=== PATIENT | male | born 1945 ===

== ENCOUNTER 2023-04-23 10:59 | Inpatient (IN) | payer MEDICAID, SELFPAY ==
[2023-04-23] VITALS (28 sets, daily range): BP systolic 62–107; BP diastolic 33–69; PULSE 67–110; RESP 14–26; TEMP 35.3–38.4; O2SAT 79–99; BMI 27.1; BMI 27.5
--- NOTE | ~2023-04-23 | CT_ITS ---
EXAMINATION: CT ABDOMEN AND PELVIS WITHOUT CONTRAST CLINICAL INFORMATION: Abdominal pain. Dysuria. Fever. End-stage renal disease. COMPARISON: None available. TECHNIQUE: Multidetector volumetric imaging was performed from the superior aspect of the liver through the pubic symphysis. Sagittal and coronal reformatted images were obtained on the technologist's workstation. This CT examination was performed using dose optimization techniques as appropriate, variously including the following: *Automated exposure control *Adjustment of mA and/or kV according to patient size (this includes techniques or standardized protocols for targeted exams where dose is matched to indication/reason for exam; i.e. extremities or head) *Use of iterative reconstruction technique DLP: 667 mGy-cm FINDINGS: LUNG BASES: Bilateral small pleural effusions and atelectasis. Heart is enlarged. Right gynecomastia. LIVER, GALLBLADDER, AND BILIARY TREE: The noncontrast liver is normal in size and contour. No biliary ductal dilatation is present. The gallbladder is nonvisualized. PANCREAS: Peripancreatic stranding. Possible edema of the head of the pancreas. No ductal dilatation. SPLEEN: Not enlarged. ADRENAL GLANDS: Nodular thickening of the left adrenal gland. KIDNEYS AND URETERS: Atrophic [place] kidneys. No hydronephrosis. Nonspecific perinephric stranding. Lower pole left renal cyst. No further imaging follow-up is needed. No renal calculus. BLADDER: 2 mm depending calculus. No bladder wall thickening. GASTROINTESTINAL TRACT: Wall thickening of the rectosigmoid colon. The sigmoid colon is redundant. Presacral stranding and edema. Moderate retained stool in the colon. No small bowel obstruction. ABDOMINAL WALL: Bilateral fat-containing inguinal hernias. LYMPH NODES: Mesenteric stranding and edema. Left para-aortic lymph node measures 1.0 x 1.6 cm. VASCULAR: Marked atherosclerotic changes of the abdominal aorta and major branch vessels. No abdominal aortic aneurysm. PELVIC VISCERA: Mild enlargement of the prostate gland. OSSEOUS STRUCTURES: No destructive bone lesions. CT/CT abdomen pelvis wo IV con IMPRESSION: Mesenteric stranding and edema. Peripancreatic stranding with possible edema of the pancreatic head. Enlarged left periaortic lymph node measures 1.0 x 1.6 cm. This may represent acute pancreatitis. Advise correlation with pancreatic enzymes. Wall thickening of the rectosigmoid colon with presacral stranding and edema. This may represent proctocolitis. Advise clinical correlation. 2 mm depending calculus in the urinary bladder is may represent a recently passed stone. Small bilateral pleural effusions.
--- NOTE | ~2023-04-23 | IR_ITS ---
PROCEDURE: IR INSERTION OF TUNNEL CATHETER CLINICAL INFORMATION: Chronic renal insufficiency COMPARISON: Previous catheter placement on 04/24/2023 TECHNIQUE: All elements of maximal sterile barrier technique followed including use of cap, mask, sterile gown, sterile gloves, a sterile full body drape and hand hygiene. Also followed skin preparation with 2% chlorhexidine for cutaneous antisepsis, and sterile ultrasound preparation with sterile gel and probe cover when applicable. FINDINGS: The previously placed temporary line was removed and pressure maintained for 5 minutes. Under ultrasound guidance a micropuncture needle was placed into the right internal jugular vein. A 15 [place] peel-away sheath was placed. A 23 cm in length 14.5 [place] dual-lumen dialysis catheter was tunneled beneath the skin surface and subsequently through the peel-away sheath into the mid to superior aspect of the right atrium. Both ports were flushed and heparinized saline instilled. IR/IR cvc insert central tunnel IMPRESSION: Removal of the previously placed temporary line. Placement 14.5 [place] 23 cm in length dual-lumen tunneled dialysis catheter
--- NOTE | ~2023-04-23 | IR_ITS ---
PROCEDURE: IR INSERTION OF TUNNEL CATHETER CLINICAL INFORMATION: Chronic renal insufficiency COMPARISON: Previous catheter placement on 04/24/2023 TECHNIQUE: All elements of maximal sterile barrier technique followed including use of cap, mask, sterile gown, sterile gloves, a sterile full body drape and hand hygiene. Also followed skin preparation with 2% chlorhexidine for cutaneous antisepsis, and sterile ultrasound preparation with sterile gel and probe cover when applicable. FINDINGS: The previously placed temporary line was removed and pressure maintained for 5 minutes. Under ultrasound guidance a micropuncture needle was placed into the right internal jugular vein. A 15 [place] peel-away sheath was placed. A 23 cm in length 14.5 [place] dual-lumen dialysis catheter was tunneled beneath the skin surface and subsequently through the peel-away sheath into the mid to superior aspect of the right atrium. Both ports were flushed and heparinized saline instilled. IR/IR us guide venous access IMPRESSION: Removal of the previously placed temporary line. Placement 14.5 [place] 23 cm in length dual-lumen tunneled dialysis catheter
--- NOTE | ~2023-04-23 | IR_ITS ---
EXAMINATION: XA IR CVC removal tunneled catheter CLINICAL INFORMATION: Sepsis. Infected permacath. COMPARISON: None. TECHNIQUE/FINDINGS: The left internal jugularjugular permacath was removed. Pus was seen along the tract of the catheter. Catheter tip was sent for culture. Manual pressure was applied over the chest to achieve hemostasis. IR/IR cvc remove tunnel w prt/boiler operators supervisor IMPRESSION: Left internal jugular permacath removal.
--- NOTE | ~2023-04-23 | XR_ITS ---
EXAMINATION: XR CHEST CLINICAL INFORMATION: Shortness of breath and hypoxia. COMPARISON: None available. TECHNIQUE: Frontal view of the chest was obtained. FINDINGS: Tunneled left IJ hemodialysis catheter with functional tip in the right atrium. Cardiac silhouette is enlarged. There is central vascular congestion without overt edema. Hypoexpanded lungs with small left pleural effusion and left basilar atelectasis. XR/XR chest 1V IMPRESSION: Enlarged heart, central vascular congestion consistent with volume overload in the setting of end-stage renal disease. Small left pleural effusion and underlying atelectasis.
--- NOTE | ~2023-04-23 | IR_ITS ---
PROCEDURE: IR INSERTION OF CENTRAL VENOUS DIALYSIS CATHETER CLINICAL INFORMATION: Chronic renal failure COMPARISON: Chest x-ray dated 04/23/2023 TECHNIQUE: All elements of maximal sterile barrier technique followed including use of cap, mask, sterile gown, sterile gloves, a sterile full body drape and hand hygiene. Also followed skin preparation with 2% chlorhexidine for cutaneous antisepsis, and sterile ultrasound preparation with sterile gel and probe cover when applicable. FINDINGS: Initial ultrasound surveillance of the right internal jugular vein demonstrates of the vein is widely patent. Under ultrasound guidance a micropuncture needle was placed into the right internal jugular vein. A guidewire and catheter were advanced into the right atrium. This was followed by progressive dilatation of the soft tissue tract followed by placement of a 12 [place] by 20 cm in length tool procurement coordinator dual-lumen dialysis catheter. Both ports of the dialysis catheter was flushed and heparinized saline instilled. IR/IR cvc insert non tunnel IMPRESSION: Successful placement of a 12 [place] by 20 cm in length dual-lumen [facility] dialysis catheter
--- NOTE | 2023-04-23 11:02 | ED.GENADULT ---
HPI - General Adult General Chief complaint: General Medical Stated complaint: AMS BURNING WHEN URINATING Time Seen by Provider: 04/23/23 11:02 Source: patient, EMS, RN notes reviewed and old records reviewed Mode of arrival: EMS History of Present Illness HPI narrative: 77-year-old male with a past medical history of ESRD on HD (M/W/F), diabetes, AFib, anemia, HLD, liver cirrhosis, PVD, COPD, CHF, orthostatic hypotension, ACS, thrombocytopenia, asthma, presenting today ED via EMS from [facility] for fever, tachycardia, hypotension, and hypoxia noted when EMS arrived to transport patient to dialysis. EMS reports patient with increasing confusion and generalized weakness, typically can stand and pivot however was non ambulatory. Patient reports lower abdominal pain, dysuria, and mild SOB. Denies CP, N/V/D/C. Onset (ago): hour(s) Related Data Allergies Allergy/AdvReac Type Severity Reaction Status Date / Time No Known Allergies Allergy Verified 04/23/23 11:10 Review of Systems Review of Systems: Constitutional: + Fever, No Chills, +Fatigue, No Malaise ENT/Mouth: No Hearing loss, No Ear Pain, No Nasal Congestion, No sore throat, No Rhinorrhea, No Swallowing Difficulty Eyes: No Eye Pain, No Swelling, No Redness, No Vision Changes Cardiovascular: No Chest Pain, +SOB, No Dyspnea on Exertion, No Orthopnea, No Edema, No Palpitations Respiratory: No Cough, No Sputum, No Dyspnea Gastrointestinal: No Nausea, No Vomiting, No Diarrhea, No Constipation, + Abdominal pain Genitourinary: + Dysuria, No Urinary Frequency, No Hematuria, No Flank Pain Musculoskeletal: No joint pain, No Myalgias, No Joint Swelling Skin: No Skin Lesions, No rash Neuro: +Weakness, +confusion, No Numbness, + lightheaded, No Headache Yes all other systems are reviewed and are negative Constitutional: Constitutional: Reports as per [facility] Past Medical History Attestation statement: The following information was validated with the patient. Source: old records reviewed Medical History (Updated 04/23/23 @ 14:33 by Ras Cedillo MD) Chronic combined systolic (congestive) and diastolic (congestive) heart failure Dysphagia, oral phase Unspecified intellectual disabilities Impulse disorder, unspecified Restlessness and agitation Personal history of pulmonary embolism Diabetes mellitus due to underlying condition without complications Tachycardia, unspecified Postcholecystectomy syndrome Acute cholecystitis with chronic cholecystitis Need for assistance with personal care Muscle weakness (generalized) Edema, unspecified Shortness of breath Personal history of nicotine dependence Unspecified amblyopia, right eye Personal history of diseases of the skin and subcutaneous tissue Hypoxemia Other computer terminal operator (current) drug therapy Personal history of other diseases of the musculoskeletal system and connective tissue Gastro-esophageal 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 esophagitis regional intermodal truck driver (current) use of anticoagulants Chest pain, unspecified Unspecified osteoarthritis, unspecified site Obesity, unspecified Constipation, unspecified Exhibitionism Personal history of COVID-19 Other specified hearing loss, bilateral Unspecified asthma, uncomplicated Other ascites Type 2 diabetes mellitus with diabetic chronic kidney disease Thrombocytopenia, unspecified Hypomagnesemia Non-ST elevation (NSTEMI) myocardial infarction Vitamin D deficiency, unspecified Fluid overload, unspecified Atherosclerotic heart disease of [place] coronary artery without angina pectoris Unspecified severe protein-calorie malnutrition Acute respiratory failure with hypoxia Encounter for adjustment and management of vascular access device Dependence on renal dialysis Other disorders of phosphorus metabolism Hypo-osmolality and hyponatremia Nutritional deficiency, unspecified Orthostatic hypotension Thiamine deficiency, unspecified Venous insufficiency (chronic) (peripheral) Heart failure, unspecified Antisocial personality disorder Chronic obstructive pulmonary disease, unspecified Unspecified cirrhosis of liver Hyperlipidemia, unspecified Iron deficiency anemia, unspecified Chronic atrial fibrillation, unspecified Type 2 diabetes mellitus with diabetic neuropathy, unspecified End stage renal disease Surgical History (Updated 04/23/23 @ 11:48 by Elver Chand) Cataract extraction status of right eye Cataract extraction status, left eye Social History Social History Housing: Group Home Alcohol intake: never Patient Tobacco Use Status: Former Tobacco user Tobacco use type: Pipe Physical Exam ED Vital Signs: Vital Signs - 24 hr 04/23/23 11:10 04/23/23 11:48 04/23/23 12:37 Temperature 101.2 F H 99.8 F Pulse Rate 97 95 82 Respiratory Rate 26 H 22 H 16 Blood Pressure 69/33 L 70/40 L 73/41 L Pulse Oximetry 89 L 98 99 Oxygen Delivery Method Room Air Room Air Nasal Cannula Oxygen Flow Rate 3 2 04/23/23 12:37 04/23/23 12:45 04/23/23 12:46 Temperature 98.5 F Pulse Rate 91 79 81 Respiratory Rate 16 16 Blood Pressure 65/41 L 76/38 L 74/37 L Pulse Oximetry 91 L 97 Oxygen Delivery Method Nasal Cannula Nasal Cannula Oxygen Flow Rate 2 2 04/23/23 13:01 04/23/23 13:17 04/23/23 13:32 Temperature Pulse Rate 79 84 79 Respiratory Rate 16 16 Blood Pressure 79/37 L 74/39 L 74/41 L Pulse Oximetry 99 97 97 Oxygen Delivery Method Room Air Nasal Cannula Nasal Cannula Oxygen Flow Rate 2 1 04/23/23 13:47 04/23/23 14:02 04/23/23 14:08 Temperature Pulse Rate 81 87 79 Respiratory Rate 16 16 16 Blood Pressure 70/39 L 62/38 L 77/44 L Pulse Oximetry 95 95 79 L Oxygen Delivery Method Nasal Cannula High Flow Nasal Cannula Nasal Cannula Nasal Cannula Oxygen Flow Rate 1 1 1 BMI result Body Mass Index 27.1 Const General: cooperative, no acute distress, alert, awake and lethargic Orientation/consciousness: patient oriented x3 and lethargic Limitations: no limitations HENMT Head: Yes normal to inspection and Yes atraumatic Ears: hearing grossly normal bilaterally General nose exam: Normal external nose present Face and sinus: Yes normal facial exam Eyes General: appearance normal, both eyes and all related structures EOM: EOMs intact bilaterally Neck Neck: Yes normal visual inspection and Yes no meningeal signs Chest Other: small pus/ drainage noted from dialysis catheter site Resp Effort & Inspection: normal respiratory effort, no respiratory distress and tachypneic Auscultation: crackles bilateral at the base Cardio Rate: regular rate Heart sounds: S1 normal heart sound present and S2 normal heart sound present GI Inspection: Yes normal to inspection Palpation (GI): Soft to palpation, Tenderness to palpation present (GI) suprapubicly ( lower abdominal), no guarding and not rigid General: Yes no CVA tenderness Back/Spine/Pelvis Back: no CVA tenderness Skin Rashes: no rashes Wounds: no wounds Neuro General: patient oriented x3, tone normal and no meningeal signs Cranial nerves: Yes CN's II-XII intact bilaterally Gait exam (Neuro): Normal gait present Extrem General: Yes normal to inspection and Yes edema Course Course Course Narrative: 1211-- No leukocytosis. Anemia likely from chronic CKD. BUN 83. Creatinine 8.3 > chronic CKD, patient due for dialysis today - BNP 1344. Troponin 1789 > no STEMI on EKG, Cardiology Dr. Cedillo consulted who evaluated patient in the ED > agreeable patient septic, would refrain from heparin/further Cardiology intervention at this time -1215-- Spoke with Nephrology, Dr. Malone recommended gentle IVF/fluid precautions. Pending ICU recommendations - will initiate peripheral norepinephrine due to continued hypotension -1225-- spoke with continuous improvement consultant, Dr. Caldera who evaluated patient > recommended 2L IVF, albumin x2, & broad-spectrum antibiotics prior to pressor initiation. Recommended running pressors through dialysis catheter >>1L IVF & Albumin ordered, pressors on standby 1323--XR chest 1V IMPRESSION: Enlarged heart, central vascular congestion consistent with volume overload in the setting of end-stage renal disease. Small left pleural effusion and underlying atelectasis. CT abdomen pelvis wo IV con IMPRESSION: Mesenteric stranding and edema. Peripancreatic stranding with possible edema of the pancreatic head. Enlarged left periaortic lymph node measures 1.0 x 1.6 cm. This may represent acute pancreatitis. Advise correlation with pancreatic enzymes. Wall thickening of the rectosigmoid colon with presacral stranding and edema. This may represent proctocolitis. Advise clinical correlation. 2 mm depending calculus in the urinary bladder is may represent a recently passed stone. Small bilateral pleural effusions. >1330--1L IVF and 1 bottle Albumin in, patient remains hypotensive > continuous improvement consultant recommended 2nd bottle Albumin and 2 L IVF -1411-- patient accepted to the ICU Medications Administered Generic Name Dose Route Start Last Admin Trade Name Freq PRN Reason Stop Dose Admin Heparin Sodium (Porcine) 5,000 unit 04/23/23 14:15 04/23/23 15:13 Heparin Sodium,Porcine 5,000 Unit/Ml Vial SUBCUT 5,000 unit Q8H MARILYN Administration Norepinephrine Bitartrate 8 mg in 250 mls @ 0 mls/hr 04/23/23 12:30 04/23/23 16:05 Levophed IV 0.03 mcg/kg/min .Q0M MARILYN 4.95 mls/hr Titration Protocol Per Protocol Discontinued Medications Generic Name Dose Route Start Last Admin Trade Name Freq PRN Reason Stop Dose Admin Acetaminophen 650 mg 04/23/23 11:15 04/23/23 11:45 Acetaminophen 325 Mg Tablet PO 04/23/23 11:16 650 mg ONCE ONE Administration Sodium Chloride 500 mls @ 999 mls/hr 04/23/23 11:15 04/23/23 12:09 Ns IV 04/23/23 11:45 Infused .Q31M MARILYN Infusion Piperacillin Sod/Tazobactam 50 mls @ 100 mls/hr 04/23/23 11:18 04/23/23 12:29 Sod 2.25 gm/ Sodium Chloride IV 04/23/23 11:47 Infused ONCE ONE Infusion Vancomycin HCl 2,000 mg in 500 mls @ 250 mls/hr 04/23/23 11:26 04/23/23 16:05 Vancomycin/Ns IV 04/23/23 13:25 Infused ONCE ONE Infusion Albumin Human 100 mls @ 133.333 mls/hr 04/23/23 12:30 04/23/23 14:38 Kedbumin 25 % IV 04/23/23 14:14 Infused Q1H MARILYN Infusion Sodium Chloride 1,000 mls @ 999 mls/hr 04/23/23 12:45 04/23/23 13:43 Ns IV 04/23/23 13:45 Infused .Q1H1M MARILYN Infusion Sodium Chloride 1,000 mls @ 999 mls/hr 04/23/23 13:30 04/23/23 14:45 Ns IV 04/23/23 14:30 Infused .Q1H1M MARILYN Infusion Albumin Human 100 mls @ 133.333 mls/hr 04/23/23 14:30 04/23/23 16:07 Kedbumin 25 % IV 04/23/23 16:14 133.33 mls/hr Q1H MARILYN Administration Medical Decision Making Medical Decision Making MDM Narrative: 77-year-old male with a past medical history of ESRD on HD (M/W/F), diabetes, AFib, anemia, HLD, liver cirrhosis, PVD, COPD, CHF, orthostatic hypotension, ACS, thrombocytopenia, asthma, presenting today ED via EMS from [facility] for fever, tachycardia, hypotension, and hypoxia noted when EMS arrived to transport patient to dialysis. On exam hypotensive, tachypneic, febrile to 101 orally, satting 86% on RA > 95% on 3L NC. Lungs is bibasilar crackles, abdomen soft with lower tenderness, no rebound or guarding. Bilateral LE pitting edema noted. Concern for dialysis catheter site infection vs UTI vs intra-abdominal infection/pathology vs pneumonia vs CHF/ fluid overload w/ ESRD. Lower suspicion for ACS/PE at this time Case discussed with ED attending Dr. Acosta plan: EKG, labs including lactic/ blood cultures, CXR, UA, CT AP, empiric IV Vancomycin and Zosyn, consult Nephrology, admission Please refer to course for remaining clinical decision making, interpretation of labs/imaging results, and discussions with consultants and/or family members. Differential Diagnosis Differential Diagnoses: The differential diagnosis associated with the presentation includes As above Admission/Observation Consideration of admission/observation: Escalation of care including admission/observation considered Consult Healthcare Provider Management of the patient was discussed with: Hospitalist and Executive Director Of Nursing ( Cardiology, Nephrology, Quality And Reliability Engineer) Lab Data MDM Lab Attestation statement: I reviewed the patient's lab results. 04/23/23 11:26 04/23/23 11:26 Labs: Lab Results 04/23/23 04/23/23 04/23/23 Range/Units 11:26 11:27 12:04 WBC 10.9 H (4.8-10.8) X10*3/uL RBC 2.74 L (4.60-5.80) X10*6/uL Hgb 7.8 L (14.0-18.0) g/dl Hct 25.0 L (42.0-52.0) % MCV 91.2 (80.0-98.0) fL MCH 28.5 (27.0-33.0) pg MCHC 31.2 (31.0-36.0) g/dl RDW 15.9 (11.0-16.0) % Plt Count 102 L (160-400) X10*3/uL MPV 9.9 (9.4-12.4) fL Immature Gran % (Auto) 0.4 (0.0-0.4) % Neut % (Auto) 89.0 H (45-73) % Lymph % (Auto) 5.3 L (20-40) % Graham % (Auto) 5.1 (2-11) % Eos % (Auto) 0.0 (0-4) % Baso % (Auto) 0.2 (0-2) % Lymph # (Auto) 0.6 L (1.2-4.9) X10*3/uL Graham # (Auto) 0.6 (0.1-1.2) X10*3/uL Eos # (Auto) 0.0 (0.0-0.4) X10*3/uL Baso # (Auto) 0.0 (0.0-0.2) X10*3/uL Abs Immat Gran (auto) 0.04 H (0.00-0.03) X10*3/uL Absolute Neuts (auto) 9.7 H (2.0-8.3) x10*3/uL Absolute Nucleated RBC 0.000 (0.0-0.012) X10*3/uL Nucleated RBC % (auto) 0.0 (0.0-0.2) /100WBC PT 20.5 H (11.1-13.3) SEC INR 1.7 H (0.9-1.1) VBG pH 7.32 (7.32-7.43) VBG pCO2 37 mmHg VBG pO2 65 mmHg VBG HCO3 19 L (22-26) mmol/L VBG O2 Saturation 88.0 % VBG Base Excess -5.5 mmol/L Sodium 136 (135-145) mmol/L Potassium 4.1 (3.3-5.1) mmol/L Chloride 101 (96-108) mmol/L Carbon Dioxide 24 (22-29) mmol/L Anion Gap 15 (12-20) BUN 83 H (9-16) mg/dL Creatinine 8.38 H* (0.5-1.4) mg/dL Estim Creat Clear Calc 7.9 Estimated GFR 6 Random Glucose 110 (60-115) mg/dL Lactic Acid 1.3 (0.5-2.0) mmol/L Calcium 9.3 (8.4-10.2) mg/dL Magnesium 1.7 (1.6-2.6) mg/dL Total Bilirubin 0.8 (0.0-1.0) mg/dL Direct Bilirubin 0.4 (0.0-0.5) mg/dL AST 22 (5-37) U/L ALT 10 (0-40) U/L Alkaline Phosphatase 87 (39-117) U/L Troponin I High Sens 1789.8 H* (<3.5-35.0) ng/L B-Natriuretic Peptide 1344 H (<100) pg/mL Total Protein 6.9 (6.5-8.0) g/dL Albumin 3.2 L (3.5-5.0) g/dL Lipase 29 (8-78) U/L COVID-19 (HAIDER) Negative (Negative) COVID-19 Clin Com See Note Independent Interpretation I performed an independent interpretation of an: EKG ( EKG AFib at a rate of 93. Jose V6. QTC 445. No STEMI.) Radiology Impression Discussion of test interpretation with radiology: I have reviewed the radiologist's reading. Independent Historian Clinical information obtained from an independent historian. History obtained from or confirmed by: EMS External Record Review External record reviewed: Inpatient record, Office record, Outpatient record, Prior outpatient labs, Prior outpatient radiology, Primary care record and Outside ED record Tests considered The following testing was considered but not selected: As above Prescription Management I considered prescription management with: Pain Medication and Antibiotic Chronic Conditions Patient?s care impacted by: Diabetes and Other (ESRD on HD) Social Determinants Patient?s care significantly limited by Social Determinants of Health including: Other Social Determinant of Health Critical Care Time Critical Care Time Critical Care Time: Yes Total Critical Care Time: 60 Attestation: I have personally provided critical care time exclusive of time spent on separately billable procedures. Time includes review of lab data, radiology results, discussion with consultants, and monitoring for potential decompensation. Intervention performed as documented. Discharge Plan Discharge Clinical Impression: Sepsis, Acute hypotension, Fever, ESRD (end stage renal disease) on dialysis, Proctocolitis Patient Disposition: Admitted As Inpatient Discharge Date/Time: 04/23/23 15:07 Sepsis Bolus Exclusion Sepsis Bolus Exclusion CHF/Renal Failure This patient met severe sepsis criteria due to the following condition(s):: Hypotension In my clinical judgement the administration of 30 ml/kg of crystalloid would be detrimental to this patient due to the patient's following conditions:: Concern for fluid overload Replace the 30 mls/kg with (*zero amount not acceptable): Crystalloids amount given in mls: (rate must be at least 150cc/hr): 1,500 Colloids amount given in mls:: 50
--- NOTE | 2023-04-23 11:13 | ECG_ITS ---
Test Reason : sepsys Blood Pressure : / mmHG Vent. Rate : 093 BPM Atrial Rate : 000 BPM P-R Int : 000 ms QRS Dur : 096 ms QT Int : 358 ms P-R-T Axes : 000 -06 -11 degrees QTc Int : 445 ms Atrial fibrillation Low voltage QRS Cannot rule out Inferior infarct , age undetermined Abnormal ECG No previous ECGs available Referred By: Deedee Shaikh Electronically Signed By:BOLA DALLAS
[2023-04-23 11:35] LABS: MANUAL DIFF FLAG NO
[2023-04-23 11:37] LABS: Basophils Percent Auto 0.2 % (0-2); Hemoglobin 7.8 g/dl (14.0-18.0); Imm Gran Abs Auto 0.04 X10*3/uL (0.00-0.03); Imm Gran Pct Auto 0.4 % (0.0-0.4); Lymphocytes Absolute Auto 0.6 X10*3/uL (1.2-4.9); Lymphocytes Percent Auto 5.3 % (20-40); Mean Corpuscular HGB Conc 31.2 g/dl (31.0-36.0); Mean Corpuscular Hemoglobin 28.5 pg (27.0-33.0); Mean Corpuscular Volume 91.2 fL (80.0-98.0); Monocytes Absolute Auto 0.6 X10*3/uL (0.1-1.2); Monocytes Percent Auto 5.1 % (2-11); Neutrophils Absolute Auto 9.7 x10*3/uL (2.0-8.3); Red Blood Count 2.74 X10*6/uL (4.60-5.80); Red Cell Distribution Width 15.9 % (11.0-16.0); White Blood Count 10.9 X10*3/uL (4.8-10.8)
[2023-04-23] MEDS: 0.9 % Sodium Chloride 500 ML 999 ML IV (11:38)
[2023-04-23 11:42] LABS: INTERNATIONAL NORM RATIO 1.7 (0.9-1.1); Mean Platelet Volume 9.9 fL (9.4-12.4); Prothrombin Time 20.5 SEC (11.1-13.3)
[2023-04-23 11:43] LABS: Platelet Count 102 X10*3/uL (160-400)
[2023-04-23] MEDS: Acetaminophen 325 MG TABLET 650 MG PO (11:45)
[2023-04-23 11:47] LABS: Lactic Acid 1.3 mmol/L (0.5-2.0)
--- NOTE | 2023-04-23 11:50 | PC.NURSE ---
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 pt biba after pt was supposed to go to dialysis treatment but pt was hypotensive/tachy/febrile so they brought him here to be seen instead. pt currently hypotensive at 70/40 - BP cycling at q15min. 99.8 temp orally. 98% on 3L via nasal cannula. pt states that he was feeling SOB upon arrival to ED - pt states that those sx subsided after being put on oxygen. pt denies O2 use at home. pt able to speak in full clear sentences w/o difficulty. crackles noted in lower lobes bilaterally. pt currently c/o no pain yumiko. pt increasingly diaphoretic. skin warm to the touch. tech currently drawing 2nd set of cultures so abx can be hung. pt currently in no apparent distress. respirations even and unlabored. call zamora placed within reach.
[2023-04-23 11:55] LABS: COVID-19 Test Negative (Negative); IDNOW Serial# BCCEAD1C
[2023-04-23 11:57] LABS: Alanine Aminotransferase 10 U/L (0-40); Albumin Level 3.2 g/dL (3.5-5.0); Alkaline Phosphatase 87 U/L (39-117); Anion Gap 15 (12-20); Aspartate Amino Transferase 22 U/L (5-37); B Type Natriuretic Peptide 1344 pg/mL (<100); Bilirubin Direct 0.4 mg/dL (0.0-0.5); Bilirubin Total 0.8 mg/dL (0.0-1.0); Blood Urea Nitrogen 83 mg/dL (9-16); Calcium 9.3 mg/dL (8.4-10.2); Carbon Dioxide 24 mmol/L (22-29); Chloride 101 mmol/L (96-108); Creatinine Clr Calc Pharmacy 7.9; Estimated Glomerular Filt Rate 6; Glucose Random 110 mg/dL (60-115); Lipase 29 U/L (8-78); Magnesium 1.7 mg/dL (1.6-2.6); Potassium 4.1 mmol/L (3.3-5.1); Sodium 136 mmol/L (135-145); Total Protein 6.9 g/dL (6.5-8.0)
[2023-04-23] MEDS: Piperacillin Sodium/Tazobactam 2.25 GM in 0.9 % Sodium Chloride 50 ML IV ×3 (11:59→23:39)
[2023-04-23 12:00] LABS: Troponin-I High Sensitivity 1789.8 ng/L (<3.5-35.0)
[2023-04-23 12:10] LABS: VBG Base Excess -5.5 mmol/L; VBG HCO3 19 mmol/L (22-26); VBG pCO2 37 mmHg; VBG pH 7.32 (7.32-7.43); VBG pO2 65 mmHg
[2023-04-23 12:12] LABS: Venous Blood Gas Refer to POC result
--- NOTE | 2023-04-23 12:41 | PC.NURSE ---
per request of icu provider pt to hold off having norepi until he has additional bolus of 1L NS, icu provider also states to use dialysis port as central line for nor epi if needed
[2023-04-23] MEDS: 0.9 % Sodium Chloride 1,000 ML 999 ML IV ×2 (12:42→13:39)
[2023-04-23] MEDS: Albumin Human 25 % 100 ML 133.33 ML IV ×3 (12:47→16:07)
[2023-04-23] MEDS: vancomycin/NS 2,000 MG/500 ML PLAST..BAG 250 MG IV (12:53)
[2023-04-23] MEDS: Albumin Human 25 % 100 ML IV (13:38)
--- NOTE | 2023-04-23 13:41 | PC.NURSE ---
per request of icu provider additional ivf was hung per orders, this nurse discussed with provider the patients BNP level, we also discussed and changed the dressing to the dialysis cath which was noted to have almeida colored puss coming from the area it is stitched i, pt also titrated down to 1L nc. pt currently sleeping, wakes to stimulus, library monitor afib, pt ivf hung, albumin hung, and abx hung per order, pt continues to be hypotensive however norepi continues to be held per provider at this time, call zamora within reach, will continue to monitor
--- NOTE | 2023-04-23 13:53 | PC.NURSE ---
icu provider at bedside requesting IVF to be put on pressure bag, this nurse obtained pressure bag and applied to infuse IVF
--- NOTE | 2023-04-23 14:14 | PC.NURSE ---
this nurse spoke with ICU provider about admission to pt to ICU, orders are being placed, this nurse requested ICU provider to put in specific order/communication if he wishes to have nor-epi run though the dialysis port- currently the nor-epi continues to be held. provider is aware of current vitals. ed provider was also notified about the pts vitals and orders for ICU admission
--- NOTE | 2023-04-23 14:17 | P.HPCC_ITS ---
History of Present Illness Date of Service: 04/23/23 Chief Complaint: Hypotension 77-year-old gentleman with underlying liver cirrhosis, diabetes, AFib, COPD, PVD, combined systolic and diastolic CHF, end-stage renal disease on hemodialysis Sunday/Sunday/Sunday, thrombocytopenia admitted on 04/23/2023 for concerns of fever and hypotension. On ER evaluation patient with poor response to initial resuscitation with IV fluids and albumin requiring pressor support. Likely source is tunneled dialysis catheter. Order for explantation placed. Patient covered with broad-spectrum antibiotics and admitted to the intensive care unit. Review of Systems 2 Review of Systems: Yes Unobtainable due to mental status ( Confusion) Neurologic: Reports confusion Psychiatric: Psychiatric: Reports confusion [facility] Past Medical History Medical History (Updated 04/23/23 @ 14:22 by Marcelino Caldera MD) Chronic combined systolic (congestive) and diastolic (congestive) heart failure Dysphagia, oral phase Unspecified intellectual disabilities Impulse disorder, unspecified Restlessness and agitation Personal history of pulmonary embolism Diabetes mellitus due to underlying condition without complications Tachycardia, unspecified Postcholecystectomy syndrome Acute cholecystitis with chronic cholecystitis Need for assistance with personal care Muscle weakness (generalized) Edema, unspecified Shortness of breath Personal history of nicotine dependence Unspecified amblyopia, right eye Personal history of diseases of the skin and subcutaneous tissue Hypoxemia Other [facility] (current) drug therapy Personal history of other diseases of the musculoskeletal system and connective tissue Gastro-esophageal 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 esophagitis [facility] (current) use of anticoagulants Chest pain, unspecified Unspecified osteoarthritis, unspecified site Obesity, unspecified Constipation, unspecified Exhibitionism Personal history of COVID-19 Other specified hearing loss, bilateral Unspecified asthma, uncomplicated Other ascites Type 2 diabetes mellitus with diabetic chronic kidney disease Thrombocytopenia, unspecified Hypomagnesemia Non-ST elevation (NSTEMI) myocardial infarction Vitamin D deficiency, unspecified Fluid overload, unspecified Atherosclerotic heart disease of [place] coronary artery without angina pectoris Unspecified severe protein-calorie malnutrition Acute respiratory failure with hypoxia Encounter for adjustment and management of vascular access device Dependence on renal dialysis Other disorders of phosphorus metabolism Hypo-osmolality and hyponatremia Nutritional deficiency, unspecified Orthostatic hypotension Thiamine deficiency, unspecified Venous insufficiency (chronic) (peripheral) Heart failure, unspecified Antisocial personality disorder Chronic obstructive pulmonary disease, unspecified Unspecified cirrhosis of liver Hyperlipidemia, unspecified Iron deficiency anemia, unspecified Chronic atrial fibrillation, unspecified Type 2 diabetes mellitus with diabetic neuropathy, unspecified End stage renal disease Surgical History Surgical History (Updated 04/23/23 @ 11:48 by Elver Chand) Cataract extraction status of right eye Cataract extraction status, left eye Social History Social History Alcohol intake: never Patient Tobacco Use Status: Former Tobacco user Smoked in Last 30 Days: No Use of substances other than those prescribed or required for medical reasons: No Advance Directives: No Advance Directives Information Provided: No Nutrition Risks: No Nutritional Risk Meds Allergies Allergy/AdvReac Type Severity Reaction Status Date / Time No Known Allergies Allergy Verified 04/23/23 11:10 Active Medications: Current Medications Heparin Sodium (Porcine) (Heparin Sodium,Porcine 5,000 Unit/Ml Vial) 5,000 unit SUBCUT Q8H MARILYN Norepinephrine Bitartrate (Levophed) 8 mg in 250 mls @ 0 mls/hr IV .Q0M MARILYN; Protocol Sodium Chloride (Ns) 1,000 mls @ 999 mls/hr IV .Q1H1M MARILYN Stop: 04/23/23 14:30 Last Admin: 04/23/23 13:39 Dose: 999 mls/hr Pharmacy Consult (Consult Rx Vancomycin Dosing) 1 each MISCELLANE DAILY PRN PRN Reason: Consult order Physical Exam 2 Vital Signs: Vital Signs: Last Vital Signs Temp 98.5 F 04/23/23 12:45 Pulse 87 04/23/23 14:02 Resp 16 04/23/23 14:02 BP 62/38 L 04/23/23 14:02 Pulse Ox 95 04/23/23 14:02 O2 Del Method Nasal Cannula 04/23/23 14:02 O2 Flow Rate 1 04/23/23 14:02 BMI result Body Mass Index 27.1 Const: General: no acute distress and confusion Orientation/consciousness: confusion Eyes: Sclerae: sclerae normal EOM: EOMs intact bilaterally Neck: Neck: Yes no lymphadenopathy, Yes trachea midline and Yes supple Resp: Effort & Inspection: normal respiratory effort and no respiratory distress Auscultation: clear to auscultation bilaterally Cardio: Rate: regular rate Rhythm: regular rhythm Heart sounds: no gallops, no murmurs and no rubs GI: Palpation (GI): Soft to palpation and Other GI palpation findings present ( Nontender) Auscultation: normal bowel sounds Neuro: General: confusion Extrem: General: No clubbing, No cyanosis and Yes edema ( trace bilateral) Results Labs 04/23/23 11:26 04/23/23 11:26 Labs: Laboratory Results - last 24 hr 04/23/23 04/23/23 11:26 12:04 MCV 91.2 MCH 28.5 MCHC 31.2 RDW 15.9 Plt Count 102 L MPV 9.9 Immature Gran % (Auto) 0.4 Neut % (Auto) 89.0 H Lymph % (Auto) 5.3 L [place] % (Auto) 5.1 Eos % (Auto) 0.0 Baso % (Auto) 0.2 Lymph # (Auto) 0.6 L [place] # (Auto) 0.6 Eos # (Auto) 0.0 Baso # (Auto) 0.0 Abs Immat Gran (auto) 0.04 H Absolute Neuts (auto) 9.7 H Absolute Nucleated RBC 0.000 Nucleated RBC % (auto) 0.0 PT 20.5 H INR 1.7 H VBG pH 7.32 VBG pCO2 37 VBG pO2 65 VBG HCO3 19 L VBG O2 Saturation 88.0 VBG Base Excess -5.5 Anion Gap 15 Estim Creat Clear Calc 7.9 Estimated GFR 6 Random Glucose 110 Lactic Acid 1.3 Calcium 9.3 Magnesium 1.7 Total Bilirubin 0.8 Direct Bilirubin 0.4 AST 22 ALT 10 Alkaline Phosphatase 87 B-Natriuretic Peptide 1344 H Total Protein 6.9 Albumin 3.2 L Lipase 29 COVID-19 (HAIDER) Negative COVID-19 Clin Com See Note Imaging Radiologist's Impressions: Impressions Abdomen/Pelvis CT 04/23/23 11:41 IMPRESSION: Mesenteric stranding and edema. Peripancreatic stranding with possible edema of the pancreatic head. Enlarged left periaortic lymph node measures 1.0 x 1.6 cm. This may represent acute pancreatitis. Advise correlation with pancreatic enzymes. Wall thickening of the rectosigmoid colon with presacral stranding and edema. This may represent proctocolitis. Advise clinical correlation. 2 mm depending calculus in the urinary bladder is may represent a recently passed stone. Small bilateral pleural effusions. Chest X-Ray 04/23/23 11:41 IMPRESSION: Enlarged heart, central vascular congestion consistent with volume overload in the setting of end-stage renal disease. Small left pleural effusion and underlying atelectasis. Assessment and Plan (1) Septic shock: Status: Acute (2) Infection associated with silicone tunneled cuffed peritoneal dialysis catheter: Status: Acute (3) ESRD (end stage renal disease) on dialysis: Status: Acute (4) Chronic combined systolic (congestive) and diastolic (congestive) heart failure: Status: Acute (5) Antisocial personality disorder: Status: Acute (6) Type 2 diabetes mellitus with diabetic neuropathy, unspecified: Status: Acute (7) Chronic atrial fibrillation, unspecified: Status: Acute (8) Chronic obstructive pulmonary disease, unspecified: Status: Acute Plan Assessment: 77-year-old gentleman admitted with septic shock with likely source being infected tunneled dialysis catheter now requiring pressor support. Plan: Neuro: Septic encephalopathy, expect to improve with resolution of sepsis. Cardiac: Septic shock, continue to titrate off pressor support as tolerated. Underlying AFib , PVD, and combined chronic systolic/diastolic congestive heart failure. Pulmonary: Acute on chronic hypoxic respiratory failure secondary to pulmonary edema and patient with end-stage renal disease and congestive heart failure. Renal: end-stage renal disease on hemodialysis. Continue with hemodialysis support. Now requires explantation of tunneled dialysis catheter, order placed. Endo: No acute issues. Underlying diabetes mellitus. GI: No acute issues. ID: Septic shock with likely bacteremia secondary to skin/soft tissue source. Continue on broad-spectrum antibiotics. Heme/Onc: No acute issues. Psych: No acute issues. Underlying antisocial disorder. Miscellaneous: No acute issues. Prophylaxis: Heparin Diet: NPO Critical care time spent: 90 minutes Time Spent With Patient Time: Total time managing care of this patient today ____ minutes.
--- NOTE | 2023-04-23 14:24 | P.CONCA_ITS ---
History of Present Illness History of Present Illness Date of Service: 04/23/23 Chief complaint: SEPTIC SHOCK, elevated troponins Narrative: 77-year-old gentleman with end-stage renal disease presenting with sepsis and elevated troponins. He could not do hemodialysis today and was sent to [facility] for fever, tachycardia, hypertension and hypoxia. He has background history of end-stage renal disease on hemodialysis Sunday, diabetes, AFib, anemia, hyperlipidemia, cirrhosis, peripheral vascular disease, COPD, orthostatic hypotension and thrombocytopenia. He is denying any chest discomfort shortness of breath. He is complaining of right side abdominal pain. He is saying he had cholecystectomy in the past but appears also somewhat lethargic and sleepy. He is hypertensive currently and is getting fluid boluses. He spiked a fever of 102 in the ER. He has a left sided PermCath. [facility] Past Medical History Medical History (Updated 04/23/23 @ 14:33 by Ras Cedillo MD) Chronic combined systolic (congestive) and diastolic (congestive) heart failure Dysphagia, oral phase Unspecified intellectual disabilities Impulse disorder, unspecified Restlessness and agitation Personal history of pulmonary embolism Diabetes mellitus due to underlying condition without complications Tachycardia, unspecified Postcholecystectomy syndrome Acute cholecystitis with chronic cholecystitis Need for assistance with personal care Muscle weakness (generalized) Edema, unspecified Shortness of breath Personal history of nicotine dependence Unspecified amblyopia, right eye Personal history of diseases of the skin and subcutaneous tissue Hypoxemia Other skilled nursing (current) drug therapy Personal history of other diseases of the musculoskeletal system and connective tissue Gastro-esophageal 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 esophagitis senior care (current) use of anticoagulants Chest pain, unspecified Unspecified osteoarthritis, unspecified site Obesity, unspecified Constipation, unspecified Exhibitionism Personal history of COVID-19 Other specified hearing loss, bilateral Unspecified asthma, uncomplicated Other ascites Type 2 diabetes mellitus with diabetic chronic kidney disease Thrombocytopenia, unspecified Hypomagnesemia Non-ST elevation (NSTEMI) myocardial infarction Vitamin D deficiency, unspecified Fluid overload, unspecified Atherosclerotic heart disease of [place] coronary artery without angina pectoris Unspecified severe protein-calorie malnutrition Acute respiratory failure with hypoxia Encounter for adjustment and management of vascular access device Dependence on renal dialysis Other disorders of phosphorus metabolism Hypo-osmolality and hyponatremia Nutritional deficiency, unspecified Orthostatic hypotension Thiamine deficiency, unspecified Venous insufficiency (chronic) (peripheral) Heart failure, unspecified Antisocial personality disorder Chronic obstructive pulmonary disease, unspecified Unspecified cirrhosis of liver Hyperlipidemia, unspecified Iron deficiency anemia, unspecified Chronic atrial fibrillation, unspecified Type 2 diabetes mellitus with diabetic neuropathy, unspecified End stage renal disease Surgical History Surgical History (Updated 04/23/23 @ 11:48 by Elver Chand) Cataract extraction status of right eye Cataract extraction status, left eye Social History Social History Alcohol intake: never Patient Tobacco Use Status: Former Tobacco user Smoked in Last 30 Days: No Use of substances other than those prescribed or required for medical reasons: No Advance Directives: No Advance Directives Information Provided: No Nutrition Risks: No Nutritional Risk Meds Allergies Allergy/AdvReac Type Severity Reaction Status Date / Time No Known Allergies Allergy Verified 04/23/23 11:10 Active Medications: Current Medications Heparin Sodium (Porcine) (Heparin Sodium,Porcine 5,000 Unit/Ml Vial) 5,000 unit SUBCUT Q8H MARILYN Norepinephrine Bitartrate (Levophed) 8 mg in 250 mls @ 0 mls/hr IV .Q0M MARILYN; Protocol Sodium Chloride (Ns) 1,000 mls @ 999 mls/hr IV .Q1H1M MARILYN Stop: 04/23/23 14:30 Last Admin: 04/23/23 13:39 Dose: 999 mls/hr Pharmacy Consult (Consult Rx Vancomycin Dosing) 1 each MISCELLANE DAILY PRN PRN Reason: Consult order Physical Exam 2 Vital Signs: Vital Signs: Last Vital Signs Temp 98.8 F 04/23/23 14:21 Pulse 81 04/23/23 14:21 Resp 16 04/23/23 14:21 BP 70/38 L 04/23/23 14:21 Pulse Ox 94 04/23/23 14:21 O2 Del Method Nasal Cannula 04/23/23 14:21 O2 Flow Rate 1 04/23/23 14:21 BMI result Body Mass Index 27.1 GENERAL APPEARANCE: Lethargic and sleepy. Arousable. NECK: no carotid bruit, no jugular venous distention. SKIN: no suspicious lesions, warm and dry. HEART: no murmurs, regular rate and rhythm. LUNGS: Crackles both bases. ABDOMEN: soft, nontender. EXTREMITIES: no edema. PERIPHERAL PULSES: equal. NEUROLOGIC: Lethargic but arousable. Moving all extremities. Objective Labs and Meds 04/23/23 11:26 04/23/23 11:26 Lab results: Laboratory Results - last 24 hr 04/23/23 04/23/23 04/23/23 11:26 11:27 12:04 WBC 10.9 H RBC 2.74 L Hgb 7.8 L Hct 25.0 L MCV 91.2 MCH 28.5 MCHC 31.2 RDW 15.9 Plt Count 102 L MPV 9.9 Immature Gran % (Auto) 0.4 Neut % (Auto) 89.0 H Lymph % (Auto) 5.3 L [place] % (Auto) 5.1 Eos % (Auto) 0.0 Baso % (Auto) 0.2 Lymph # (Auto) 0.6 L [place] # (Auto) 0.6 Eos # (Auto) 0.0 Baso # (Auto) 0.0 Abs Immat Gran (auto) 0.04 H Absolute Neuts (auto) 9.7 H Absolute Nucleated RBC 0.000 Nucleated RBC % (auto) 0.0 PT 20.5 H INR 1.7 H VBG pH 7.32 VBG pCO2 37 VBG pO2 65 VBG HCO3 19 L VBG O2 Saturation 88.0 VBG Base Excess -5.5 Sodium 136 Potassium 4.1 Chloride 101 Carbon Dioxide 24 Anion Gap 15 BUN 83 H Creatinine 8.38 H* Estim Creat Clear Calc 7.9 Estimated GFR 6 Random Glucose 110 Lactic Acid 1.3 Calcium 9.3 Magnesium 1.7 Total Bilirubin 0.8 Direct Bilirubin 0.4 AST 22 ALT 10 Alkaline Phosphatase 87 Troponin I High Sens 1789.8 H* B-Natriuretic Peptide 1344 H Total Protein 6.9 Albumin 3.2 L Lipase 29 COVID-19 (HAIDER) Negative COVID-19 Clin Com See Note Imaging Radiologist's impression: Impressions Abdomen/Pelvis CT 04/23/23 11:41 IMPRESSION: Mesenteric stranding and edema. Peripancreatic stranding with possible edema of the pancreatic head. Enlarged left periaortic lymph node measures 1.0 x 1.6 cm. This may represent acute pancreatitis. Advise correlation with pancreatic enzymes. Wall thickening of the rectosigmoid colon with presacral stranding and edema. This may represent proctocolitis. Advise clinical correlation. 2 mm depending calculus in the urinary bladder is may represent a recently passed stone. Small bilateral pleural effusions. Chest X-Ray 04/23/23 11:41 IMPRESSION: Enlarged heart, central vascular congestion consistent with volume overload in the setting of end-stage renal disease. Small left pleural effusion and underlying atelectasis. Assessment and Plan (1) Sepsis: Status: Acute (2) Elevated troponin: Status: Acute Plan [age] year gentleman presenting with hypotension due to sepsis. He is noticed to have elevated troponin and BNP levels. He is denying any chest discomfort shortness of breath. He has been hypertensive in the emergency department and is getting IV fluid boluses. I think troponin rise is due to type 2 injury due to septic shock. He can have echocardiography to assess any wall motion or cardiomyopathy but right now focus should be on treatment of sepsis with broad-spectrum antibiotics after doing basic cultures. He has crackles on examination and has not finished hemodialysis today. In any case currently treatment will be focused on sepsis. We will follow along with you. Do not recommend heparin currently. Thank you for allowing me to participate in the care of your patient. Please feel free to contact me if you have any questions. Time Spent With Patient Time: Total time managing care of this patient today ____ minutes. Procedures Date of Service Date of Service: 04/23/23
--- NOTE | 2023-04-23 14:26 | PM.SEPBOLA4 ---
Sepsis Bolus Exclusion Sepsis Bolus Exclusion Date of Occurrence: 04/23/23 This patient met severe sepsis criteria due to the following condition(s):: Hypotension and Documentation of septic shock In my clinical judgement the administration of 30 ml/kg of crystalloid would be detrimental to this patient due to the patient's following conditions:: NYHA class III or IV Heart Failure(symptoms with low exertion or rest) and Stage III or IV Chronic Kidney Disease (GFR<30) Replace the 30 mls/kg with (*zero amount not acceptable): *Note: One of the black must be documented Colloids amount given in mls:: 200 At a rate of (must be > 125 cchr):: 133
--- NOTE | 2023-04-23 14:44 | PC.NURSE ---
brown inserted 16F- urinie obtained, pt continues to be afib on the cafeteria monitor, pt continues to be hypotensive, report given to ICU pt to be transported with tech and nurse to icu.
[2023-04-23 14:49] LABS: Appearance Urine Clear; Color Urine Dark Yellow; Glucose Urine UA Negative (Negative); Leukocyte Esterase Urine Trace (Negative); Nitrite Urine Negative (Negative); PH 5.5 (5.0-9.0); Specific Gravity - Urine 1.015 (1.005-1.025); UMIC TRIGGER UACC YES; Urine Blood Trace (Negative); Urine Ketones Negative (Negative); Urine Protein 30 (1+) mg/dL (Neg-Trace)
[2023-04-23 14:53] LABS: Bacteria Urine None Seen (None Seen); Hyaline Casts Urine 0-2 /LPF (0-2); RBC Urine 0-2 /HPF (0-2); Squamous Epithelial Cell Urine 0-2 /HPF (0-2); WBC Urine 0-5 /HPF (0-5)
[2023-04-23] MEDS: Norepinephrine Bitartrate/D5W 8 MG/250 ML PLAST..BAG 8.25 MG IV (15:12)
[2023-04-23] MEDS: Heparin Sodium,Porcine 5,000 UNIT/ML VIAL 5000 UNIT SUBCUT ×2 (15:13→22:11)
[2023-04-23 16:40] LABS: Glucose, Whole Blood 88 mg/dL (60-115)
--- NOTE | 2023-04-23 16:54 | PHA.MEDREC ---
Pharmacy Consult ? Medication Reconciliation Pharmacy has completed the medication reconciliation. Called [facility] for medication list
[2023-04-23 18:50] LABS: Glucose, Whole Blood 114 mg/dL (60-115)
[2023-04-23 20:59] LABS: Glucose, Whole Blood 117 mg/dL (60-115)
[2023-04-24] VITALS (27 sets, daily range): BP systolic 89–123; BP diastolic 45–76; PULSE 76–120; RESP 16–26; TEMP 36.8–37.8; O2SAT 92–100; BMI 28.7
--- NOTE | 2023-04-24 00:19 | P.EN_ITS ---
Documented by User: Yane Borja NP 04/24/23 02:06 Event Note Date of Service: 04/24/23 Event Note: One set of blood cultures reported positive at 12 hours for Gram-positive cocci.? Patient presented in septic shock, febrile and hypotensive with likely source being infected tunneled dialysis catheter. ? Will continue broad-spectrum antibiotics and repeat blood cultures and lactate. Second set of blood cultures reported positive at 14 hours. Continue broad- spectrum antibiotics. Time Spent With Patient Time: Total time managing care of this patient today ____ minutes. Documented by User: Marcelino Caldera MD 04/24/23 08:22 Event Note Date of Service: 04/24/23
[2023-04-24 00:58] LABS: Lactic Acid 0.7 mmol/L (0.5-2.0)
[2023-04-24 04:55] LABS: VBG Base Excess -5.1 mmol/L; VBG HCO3 20 mmol/L (22-26); VBG pCO2 39 mmHg; VBG pH 7.32 (7.32-7.43); VBG pO2 51 mmHg
[2023-04-24 05:18] LABS: MANUAL DIFF FLAG NO
[2023-04-24 05:20] LABS: Basophils Percent Auto 0.3 % (0-2); Eosinophils Percent Auto 0.5 % (0-4); Hematocrit 28.5 % (42.0-52.0); Hemoglobin 8.6 g/dl (14.0-18.0); Imm Gran Abs Auto 0.03 X10*3/uL (0.00-0.03); Imm Gran Pct Auto 0.5 % (0.0-0.4); Lymphocytes Absolute Auto 0.5 X10*3/uL (1.2-4.9); Lymphocytes Percent Auto 7.8 % (20-40); Mean Corpuscular HGB Conc 30.2 g/dl (31.0-36.0); Mean Corpuscular Hemoglobin 27.7 pg (27.0-33.0); Mean Corpuscular Volume 91.6 fL (80.0-98.0); Mean Platelet Volume 10.5 fL (9.4-12.4); Monocytes Absolute Auto 0.5 X10*3/uL (0.1-1.2); Monocytes Percent Auto 6.9 % (2-11); Neutrophils Absolute Auto 5.6 x10*3/uL (2.0-8.3); Red Blood Count 3.11 X10*6/uL (4.60-5.80); Red Cell Distribution Width 16.1 % (11.0-16.0); White Blood Count 6.6 X10*3/uL (4.8-10.8)
[2023-04-24 05:21] LABS: Platelet Count 94 X10*3/uL (160-400)
[2023-04-24 05:27] LABS: Venous Blood Gas Refer to POC result
[2023-04-24] MEDS: Piperacillin Sodium/Tazobactam 2.25 GM in 0.9 % Sodium Chloride 50 ML IV ×2 (05:39→14:16)
[2023-04-24] MEDS: Heparin Sodium,Porcine 5,000 UNIT/ML VIAL 5000 UNIT SUBCUT ×3 (05:40→22:37)
[2023-04-24 05:53] LABS: Anion Gap 19 (12-20); Blood Urea Nitrogen 87 mg/dL (9-16); Calcium 8.8 mg/dL (8.4-10.2); Carbon Dioxide 20 mmol/L (22-29); Chloride 102 mmol/L (96-108); Glucose Random 170 mg/dL (60-115); Magnesium 1.9 mg/dL (1.6-2.6); Phosphorus 5.4 mg/dL (2.7-4.5); Potassium 3.7 mmol/L (3.3-5.1); Sodium 137 mmol/L (135-145)
[2023-04-24 05:54] LABS: Estimated Glomerular Filt Rate 6
[2023-04-24] MEDS: Norepinephrine Bitartrate/D5W 8 MG/250 ML PLAST..BAG 13.2 MG IV (06:36)
[2023-04-24 08:27] LABS: Glucose, Whole Blood 105 mg/dL (60-115)
--- NOTE | 2023-04-24 09:53 | P.PNCC_ITS ---
Subjective Subjective Date of Service: 04/24/23 Interval History: 77-year-old gentleman with underlying liver cirrhosis, diabetes, AFib, COPD, PVD, combined systolic and diastolic CHF, end-stage renal disease on hemodialysis Sunday/Sunday/Sunday, thrombocytopenia admitted on 04/23/2023 with Gram-positive bacteremia secondary to infected tunneled dialysis catheter. Internal catheter explanted. Patient started on pressor support and broad- spectrum antibiotics and admitted to intensive care unit. No events overnight. Critical Care Time (minutes): 45 Physical Exam 2 Vital Signs: Vital Signs: Last Vital Signs Temp 100.0 F 04/24/23 08:00 Pulse 92 04/24/23 08:00 Resp 17 04/24/23 08:00 BP 118/64 04/24/23 08:00 Pulse Ox 99 04/24/23 08:00 O2 Del Method Nasal Cannula 04/24/23 08:00 O2 Flow Rate 2 04/24/23 08:00 BMI result Body Mass Index 28.7 Const: General: no acute distress, alert and awake Eyes: Sclerae: sclerae normal EOM: EOMs intact bilaterally Neck: Neck: Yes no lymphadenopathy, Yes trachea midline and Yes supple Resp: Effort & Inspection: normal respiratory effort and no respiratory distress Auscultation: clear to auscultation bilaterally Cardio: Rate: regular rate Rhythm: regular rhythm Heart sounds: no gallops, no murmurs and no rubs GI: Palpation (GI): Soft to palpation and Other GI palpation findings present ( Nontender) Auscultation: normal bowel sounds Extrem: General: Yes no pedal edema, No clubbing and No cyanosis Objective Data Labs 04/24/23 04:46 04/24/23 04:46 Labs: Laboratory Results - last 24 hr 04/23/23 04/23/23 04/23/23 11:26 11:27 12:04 WBC 10.9 H RBC 2.74 L Hgb 7.8 L Hct 25.0 L MCV 91.2 MCH 28.5 MCHC 31.2 RDW 15.9 Plt Count 102 L MPV 9.9 Immature Gran % (Auto) 0.4 Neut % (Auto) 89.0 H Lymph % (Auto) 5.3 L [place] % (Auto) 5.1 Eos % (Auto) 0.0 Baso % (Auto) 0.2 Lymph # (Auto) 0.6 L [place] # (Auto) 0.6 Eos # (Auto) 0.0 Baso # (Auto) 0.0 Abs Immat Gran (auto) 0.04 H Absolute Neuts (auto) 9.7 H Absolute Nucleated RBC 0.000 Nucleated RBC % (auto) 0.0 PT 20.5 H INR 1.7 H VBG pH 7.32 VBG pCO2 37 VBG pO2 65 VBG HCO3 19 L VBG O2 Saturation 88.0 VBG Base Excess -5.5 Sodium 136 Potassium 4.1 Chloride 101 Carbon Dioxide 24 Anion Gap 15 BUN 83 H Creatinine 8.38 H* Estim Creat Clear Calc 7.9 Estimated GFR 6 POC Glucose Random Glucose 110 Lactic Acid 1.3 Calcium 9.3 Phosphorus Magnesium 1.7 Total Bilirubin 0.8 Direct Bilirubin 0.4 AST 22 ALT 10 Alkaline Phosphatase 87 Troponin I High Sens 1789.8 H* B-Natriuretic Peptide 1344 H Total Protein 6.9 Albumin 3.2 L Lipase 29 Urine Color Urine Appearance Urine pH Ur Specific [place] Urine Protein Urine Glucose (UA) Urine Ketones Urine Blood Urine Nitrite Ur Leukocyte Esterase Urine RBC Urine WBC Ur Squamous Epith Cells Urine Bacteria Hyaline Casts COVID-19 (HAIDER) Negative COVID-19 Clin Com See Note 04/23/23 04/23/23 04/23/23 14:35 16:36 18:47 WBC RBC Hgb Hct MCV MCH MCHC RDW Plt Count MPV Immature Gran % (Auto) Neut % (Auto) Lymph % (Auto) [place] % (Auto) Eos % (Auto) Baso % (Auto) Lymph # (Auto) [place] # (Auto) Eos # (Auto) Baso # (Auto) Abs Immat Gran (auto) Absolute Neuts (auto) Absolute Nucleated RBC Nucleated RBC % (auto) PT INR VBG pH VBG pCO2 VBG pO2 VBG HCO3 VBG O2 Saturation VBG Base Excess Sodium Potassium Chloride Carbon Dioxide Anion Gap BUN Creatinine Estim Creat Clear Calc Estimated GFR POC Glucose 88 114 Random Glucose Lactic Acid Calcium Phosphorus Magnesium Total Bilirubin Direct Bilirubin AST ALT Alkaline Phosphatase Troponin I High Sens B-Natriuretic Peptide Total Protein Albumin Lipase Urine Color Dark Yellow Urine Appearance Clear Urine pH 5.5 Ur Specific [place] 1.015 Urine Protein 30 (1+) H Urine Glucose (UA) Negative Urine Ketones Negative Urine Blood Trace H Urine Nitrite Negative Ur Leukocyte Esterase Trace H Urine RBC 0-2 Urine WBC 0-5 Ur Squamous Epith Cells 0-2 Urine Bacteria None Seen Hyaline Casts 0-2 COVID-19 ([facility]ER) COVID-19 Clin Com 04/23/23 04/24/23 04/24/23 20:54 00:32 04:46 WBC 6.6 RBC 3.11 L Hgb 8.6 L Hct 28.5 L MCV 91.6 MCH 27.7 MCHC 30.2 L RDW 16.1 H Plt Count 94 L MPV 10.5 Immature Gran % (Auto) 0.5 H Neut % (Auto) 84.0 H Lymph % (Auto) 7.8 L [place] % (Auto) 6.9 Eos % (Auto) 0.5 Baso % (Auto) 0.3 Lymph # (Auto) 0.5 L [place] # (Auto) 0.5 Eos # (Auto) 0.0 Baso # (Auto) 0.0 Abs Immat Gran (auto) 0.03 Absolute Neuts (auto) 5.6 Absolute Nucleated RBC 0.000 Nucleated RBC % (auto) 0.0 PT INR VBG pH VBG pCO2 VBG pO2 VBG HCO3 VBG O2 Saturation VBG Base Excess Sodium 137 Potassium 3.7 Chloride 102 Carbon Dioxide 20 L Anion Gap 19 BUN 87 H Creatinine 8.15 H* Estim Creat Clear Calc 9.0 Estimated GFR 6 POC Glucose 117 H Random Glucose 170 H Lactic Acid 0.7 Calcium 8.8 Phosphorus 5.4 H Magnesium 1.9 Total Bilirubin Direct Bilirubin AST ALT Alkaline Phosphatase Troponin I High Sens B-Natriuretic Peptide Total Protein Albumin Lipase Urine Color Urine Appearance Urine pH Ur Specific [place] Urine Protein Urine Glucose (UA) Urine Ketones Urine Blood Urine Nitrite Ur Leukocyte Esterase Urine RBC Urine WBC Ur Squamous Epith Cells Urine Bacteria Hyaline Casts COVID-19 ([facility]IDER) COVID-19 Clin Com 04/24/23 04/24/23 04:50 08:24 WBC RBC Hgb Hct MCV MCH MCHC RDW Plt Count MPV Immature Gran % (Auto) Neut % (Auto) Lymph % (Auto) [place] % (Auto) Eos % (Auto) Baso % (Auto) Lymph # (Auto) [place] # (Auto) Eos # (Auto) Baso # (Auto) Abs Immat Gran (auto) Absolute Neuts (auto) Absolute Nucleated RBC Nucleated RBC % (auto) PT INR VBG pH 7.32 VBG pCO2 39 VBG pO2 51 VBG HCO3 20 L VBG O2 Saturation 77.0 VBG Base Excess -5.1 Sodium Potassium Chloride Carbon Dioxide Anion Gap BUN Creatinine Estim Creat Clear Calc Estimated GFR POC Glucose 105 Random Glucose Lactic Acid Calcium Phosphorus Magnesium Total Bilirubin Direct Bilirubin AST ALT Alkaline Phosphatase Troponin I High Sens B-Natriuretic Peptide Total Protein Albumin Lipase Urine Color Urine Appearance Urine pH Ur Specific [place] Urine Protein Urine Glucose (UA) Urine Ketones Urine Blood Urine Nitrite Ur Leukocyte Esterase Urine RBC Urine WBC Ur Squamous Epith Cells Urine Bacteria Hyaline Casts COVID-19 ([facility]ER) COVID-19 Clin Com Microbiology Microbiology Results: Microbiology 04/23/23 11:57 Blood - Venous Blood Culture - Preliminary Prelim: GPC Gram Stain only 04/23/23 11:26 Blood - Venous Blood Culture - Preliminary Prelim: GPC Gram Stain only Progress Note: A&P Assessment and plan (1) Gram-positive bacteremia: Status: Acute (2) ESRD (end stage renal disease) on dialysis: Status: Acute (3) Septic shock: Status: Acute (4) Infection associated with silicone tunneled cuffed peritoneal dialysis catheter: Status: Acute (5) Chronic combined systolic (congestive) and diastolic (congestive) heart failure: Status: Acute (6) Antisocial personality disorder: Status: Acute (7) Type 2 diabetes mellitus with diabetic neuropathy, unspecified: Status: Acute (8) Chronic atrial fibrillation, unspecified: Status: Acute (9) Chronic obstructive pulmonary disease, unspecified: Status: Acute Plan Assessment: 77-year-old gentleman admitted with septic shock with likely source being infected tunneled dialysis catheter now requiring pressor support. Plan: Neuro: Septic encephalopathy, expect to improve with resolution of sepsis. Cardiac: Septic shock, continue to titrate off pressor support as tolerated. Underlying AFib , PVD, and combined chronic systolic/diastolic congestive heart failure. Pulmonary: Acute on chronic hypoxic respiratory failure secondary to pulmonary edema and patient with end-stage renal disease and congestive heart failure. Renal: End-stage renal disease on hemodialysis. Continue with hemodialysis support. infected tunnel cast explanted. Patient to receive new temporary dialysis catheter. Endo: No acute issues. Underlying diabetes mellitus. GI: No acute issues. ID: Septic shock with Gram-positive bacteremia secondary to skin/soft tissue source. Continue on broad-spectrum antibiotics. Heme/Onc: No acute issues. Psych: No acute issues. Underlying antisocial disorder. Miscellaneous: No acute issues. Prophylaxis: Heparin Diet: regular Critical care time spent: 45 minutes Quality Stroke Does the patient have a stroke diagnosis?: No VTE Prior VTE?: No VTE Risk Level:: Medical - moderate - high VTE Device Contraindication: N/A - Device Ordered VTE Drug Contraindication: N/A - Med Ordered
--- NOTE | 2023-04-24 10:15 | P.CONNP_ITS ---
History of Present Illness Reason for Consult Consult date: 04/26/23 Reason for consult: ESRD Chief Complaint Chief complaint: SEPTIC SHOCK, elevated troponins History of Present Illness Narrative: 77-year-old male with a past medical history of ESRD on HD (M/W/F), diabetes, AFib, anemia, HLD, liver cirrhosis, PVD, COPD, CHF, orthostatic hypotension, ACS, thrombocytopenia, asthma, presenting today ED via EMS from [facility] for fever, tachycardia, hypotension, and hypoxia He has been admitted to ICU. There was purulent drainage from the PermCath site. PermCath has been removed. Since he is due for dialysis, temporary dialysis catheter has been ordered. [facility] Past Medical History Medical History (Updated 04/25/23 @ 11:13 by Marcelino Caldera MD) Chronic combined systolic (congestive) and diastolic (congestive) heart failure Dysphagia, oral phase Unspecified intellectual disabilities Impulse disorder, unspecified Restlessness and agitation Personal history of pulmonary embolism Diabetes mellitus due to underlying condition without complications Tachycardia, unspecified Postcholecystectomy syndrome Acute cholecystitis with chronic cholecystitis Need for assistance with personal care Muscle weakness (generalized) Edema, unspecified Shortness of breath Personal history of nicotine dependence Unspecified amblyopia, right eye Personal history of diseases of the skin and subcutaneous tissue Hypoxemia Other snf (current) drug therapy Personal history of other diseases of the musculoskeletal system and connective tissue Gastro-esophageal 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 esophagitis intermodal customer service (current) use of anticoagulants Chest pain, unspecified Unspecified osteoarthritis, unspecified site Obesity, unspecified Constipation, unspecified Exhibitionism Personal history of COVID-19 Other specified hearing loss, bilateral Unspecified asthma, uncomplicated Other ascites Type 2 diabetes mellitus with diabetic chronic kidney disease Thrombocytopenia, unspecified Hypomagnesemia Non-ST elevation (NSTEMI) myocardial infarction Vitamin D deficiency, unspecified Fluid overload, unspecified Atherosclerotic heart disease of [place] coronary artery without angina pectoris Unspecified severe protein-calorie malnutrition Acute respiratory failure with hypoxia Encounter for adjustment and management of vascular access device Dependence on renal dialysis Other disorders of phosphorus metabolism Hypo-osmolality and hyponatremia Nutritional deficiency, unspecified Orthostatic hypotension Thiamine deficiency, unspecified Venous insufficiency (chronic) (peripheral) Heart failure, unspecified Antisocial personality disorder Chronic obstructive pulmonary disease, unspecified Unspecified cirrhosis of liver Hyperlipidemia, unspecified Iron deficiency anemia, unspecified Chronic atrial fibrillation, unspecified Type 2 diabetes mellitus with diabetic neuropathy, unspecified End stage renal disease Surgical History Surgical History (Updated 04/23/23 @ 11:48 by Elver Chand) Cataract extraction status of right eye Cataract extraction status, left eye Social History Social History Housing: Group Home Alcohol intake: never Patient Tobacco Use Status: Former Tobacco user Tobacco use type: Pipe service: No Meds Allergies Allergy/AdvReac Type Severity Reaction Status Date / Time No Known Allergies Allergy Verified 04/23/23 11:10 Active Medications: Current Medications Heparin Sodium (Porcine) (Heparin Sodium,Porcine 5,000 Unit/Ml Vial) 5,000 unit SUBCUT Q8H [facility] Last Admin: 04/24/23 05:40 Dose: 5,000 unit Norepinephrine Bitartrate (Levophed) 8 mg in 250 mls @ 0 mls/hr IV .Q0M [facility]; Protocol Last Admin: 04/24/23 06:36 Dose: 0.08 mcg/kg/min, 13.2 mls/hr Piperacillin Sod/Tazobactam (Sod 2.25 gm/ Sodium Chloride) 50 mls @ 100 mls/hr IV Q6H [facility] Last Infusion: 04/24/23 06:13 Dose: Infused Insulin Human Lispro (Insulin Lispro 100 Unit/Ml 3 Ml Vial) 0 unit SUBCUT QIDACHS [facility]; Protocol Last Admin: 04/24/23 08:27 Dose: Not Given Pharmacy Consult (Consult Rx Vancomycin Dosing) 1 each MISCELLANE DAILY PRN PRN Reason: Consult order Home Medications Medication Instructions Recorded Confirmed Last Taken Type acetaminophen 325 mg tablet 650 mg PO Q8H PRN Pain 04/23/23 04/23/23 Unknown History albuterol sulfate 90 mcg/actuation 1 puff inhalation Q6H PRN Wheezing 04/23/23 04/23/23 Unknown History aerosol inhaler apixaban 2.5 mg tablet (Eliquis) 2.5 mg PO BID 04/23/23 04/23/23 Unknown History ascorbic acid (vitamin C) 250 mg 250 mg PO TID 04/23/23 04/23/23 Unknown History tablet atorvastatin 20 mg tablet 20 mg PO BEDTIME 04/23/23 04/23/23 Unknown History cholecalciferol (vitamin D3) 25 25 mcg PO DAILY 04/23/23 04/23/23 Unknown History mcg (1,000 unit) tablet ciclesonide 80 mcg/actuation 2 puff inhalation BID 04/23/23 04/23/23 Unknown History aerosol inhaler (Alvesco) ferrous sulfate 324 mg (65 mg 324 mg PO DAILY 04/23/23 04/23/23 Unknown History iron) tablet,delayed release hydrocortisone 5 mg tablet 5 mg PO DAILY 04/23/23 04/23/23 Unknown History midodrine 5 mg tablet 5 mg PO TID 04/23/23 04/23/23 Unknown History nitroglycerin 0.4 mg sublingual 0.4 mg sublingual Q5M PRN Angina 04/23/23 04/23/23 Unknown History tablet pantoprazole 40 mg tablet,delayed 40 mg PO DAILY@0630 04/23/23 04/23/23 Unknown History release sevelamer carbonate 800 mg tablet 800 mg PO TID 04/23/23 04/23/23 Unknown History (Renvela) thiamine HCl (vitamin B1) 100 mg 100 mg PO DAILY 04/23/23 04/23/23 Unknown History tablet vitamin B complex 1 cap PO DAILY 04/23/23 04/23/23 Unknown History Physical Exam Vital Signs: Last Vital Signs Temp 100.0 F 04/24/23 08:00 Pulse 92 04/24/23 08:00 Resp 17 04/24/23 08:00 BP 118/64 04/24/23 08:00 Pulse Ox 99 04/24/23 08:00 O2 Del Method Nasal Cannula 04/24/23 08:00 O2 Flow Rate 2 04/24/23 08:00 BMI result Body Mass Index 28.7 Results Lab Results 04/26/23 04:43 04/26/23 04:43 Lab results: Chemistry 04/23/23 04/24/23 11:26 04:46 Sodium 136 137 Potassium 4.1 3.7 Carbon Dioxide 24 20 L BUN 83 H 87 H Creatinine 8.38 H* 8.15 H* Calcium 9.3 8.8 Phosphorus 5.4 H Hematology 04/23/23 04/24/23 11:26 04:46 WBC 10.9 H 6.6 Hgb 7.8 L 8.6 L Plt Count 102 L 94 L Urinalysis 04/23/23 14:35 Urine Color Dark Yellow Urine Appearance Clear Urine pH 5.5 Ur Specific [place] 1.015 Urine Protein 30 (1+) H Urine Glucose (UA) Negative Urine Ketones Negative Urine Blood Trace H Urine Nitrite Negative Ur Leukocyte Esterase Trace H Urine RBC 0-2 Urine WBC 0-5 Ur Squamous Epith Cells 0-2 Hyaline Casts 0-2 Assessment and Plan (1) Sepsis: Status: Acute (2) ESRD (end stage renal disease) on dialysis: Status: Acute Plan 77-year-old man with ESRD admitted with sepsis. Most likely has line sepsis. Agree with removing PermCath. Agree with current antibiotic therapy and pressor support. Plan once the temporary catheter is inserted I will arrange for hemodialysis. Remove fluid as tolerated. Can increase pressors if needed while fluid removal recent progress. Resume Epogen for anemia due to CKD. Concur with other medical management. She will follow along with the team. Thank you Time Spent With Patient Time: Total time managing care of this patient today ____ minutes. Procedures Date of Service Date of Service: 04/26/23
[2023-04-24 11:17] LABS: Glucose, Whole Blood 138 mg/dL (60-115)
--- NOTE | 2023-04-24 11:41 | MHC.CM.PN ---
Pt admitted to ICU w/HD line sepsis from [facility] in [place]. Pt off floor and having a temporary HD cath placed: Call placed to [facility] to inquire on pt's baseline level of functioning, community HD site, next of kin. RN did not know much about pt stating, he's new to us, we don't have much information. Pt came from [facility] - facility could not state if pt was able to make his own decisions, had a HCP or guardian and only had one contact name and number for a brother. Attempted to call the number given (same as the EMR contact #) but it was out of service. HALIEST in chart listing full code and all resuscitation attempts. Re-referred back to [facility] once medically stable. BLS transport will be needed
[2023-04-24 16:55] LABS: Glucose, Whole Blood 139 mg/dL (60-115)
[2023-04-24] MEDS: vancomycin HCL 1,000 MG in 0.9 % Sodium Chloride 250 ML 270 MG IV (20:40)
[2023-04-24 20:45] LABS: Glucose, Whole Blood 144 mg/dL (60-115)
[2023-04-25] VITALS (33 sets, daily range): BP systolic 83–177; BP diastolic 37–99; PULSE 83–122; RESP 16–25; TEMP -17.5–37.5; O2SAT 92–100; BMI 29.6
[2023-04-25] MEDS: Norepinephrine Bitartrate/D5W 8 MG/250 ML PLAST..BAG 13.2 MG IV (01:32)
[2023-04-25 04:50] LABS: VBG Base Excess -6.3 mmol/L; VBG HCO3 20 mmol/L (22-26); VBG pCO2 48 mmHg; VBG pH 7.23 (7.32-7.43); VBG pO2 60 mmHg
[2023-04-25 05:11] LABS: MANUAL DIFF FLAG NO
[2023-04-25 05:13] LABS: Basophils Percent Auto 0.5 % (0-2); Eosinophils Percent Auto 0.5 % (0-4); Hematocrit 28.4 % (42.0-52.0); Hemoglobin 8.5 g/dl (14.0-18.0); Imm Gran Abs Auto 0.06 X10*3/uL (0.00-0.03); Imm Gran Pct Auto 0.7 % (0.0-0.4); Lymphocytes Percent Auto 11.1 % (20-40); Mean Corpuscular HGB Conc 29.9 g/dl (31.0-36.0); Mean Corpuscular Hemoglobin 28.1 pg (27.0-33.0); Mean Platelet Volume 11.1 fL (9.4-12.4); Monocytes Percent Auto 11.7 % (2-11); NRBC Pct Auto 0.2 /100WBC (0.0-0.2); Neutrophils Absolute Auto 6.5 x10*3/uL (2.0-8.3); Neutrophils Percent Auto 75.5 % (45-73); Red Blood Count 3.02 X10*6/uL (4.60-5.80); Red Cell Distribution Width 16.6 % (11.0-16.0); White Blood Count 8.6 X10*3/uL (4.8-10.8)
[2023-04-25 05:19] LABS: Platelet Count 94 X10*3/uL (160-400)
[2023-04-25 05:34] LABS: Albumin Level 3.7 g/dL (3.5-5.0); Anion Gap 21 (12-20); Blood Urea Nitrogen 95 mg/dL (9-16); Calcium 8.8 mg/dL (8.4-10.2); Carbon Dioxide 20 mmol/L (22-29); Chloride 102 mmol/L (96-108); Creatinine Clr Calc Pharmacy 8.2; Estimated Glomerular Filt Rate 6; Glucose Random 120 mg/dL (60-115); Magnesium 1.9 mg/dL (1.6-2.6); Phosphorus 6.4 mg/dL (2.7-4.5); Sodium 139 mmol/L (135-145)
[2023-04-25] MEDS: 2 50 MEQ IVPUSH (05:56)
[2023-04-25 05:58] LABS: Cortisol Random 10.5 ug/dL
--- NOTE | 2023-04-25 07:00 | CA_ITS ---
Transthoracic Echocardiogram Patient (Last, First, Middle): Eric Malave, Gender: Male Date of : 1945 Age: 77 Procedure Date: 04/25/2023 Procedure Type: Transthoracic Echocardiogram Location: ICU Height: 185.42 cm Weight: 96.16 kg BSA: 2.21 m2 Heart Rate: 99 bpm BP: 110 / 49 mmHg Time Study Engineer: Referring MD: Marcelino Caldera MD Symptoms: shock Study Quality: Adequate ECG Rhythm: Atrial Fibrillation Conclusions: - Normal left ventricular size and systolic function. There is mildly increased left ventricular wall thickness. The visually estimated ejection fraction is between 55-60%. - Cannot rule out anterolateral wall hypokinesis in some views. - RV mild to moderately dilated with mild to moderate systolic dysfunction. - The left atrium is moderately dilated. - The right ventricular systolic pressure is 74 mmHg. Significantly elevated right atrial pressure. Severe pulmonary hypertension is present. Findings Procedure Information Contrast agent, definity, is being given per protocol without apparent complications. Left Ventricle Normal left ventricular size and systolic function. There is mildly increased left ventricular wall thickness. The visually estimated ejection fraction is between 55-60%. Diastolic function is indeterminate on the basis of available data. Cannot rule out anterolateral wall hypokinesis in some views. Right Ventricle RV mild to moderately dilated with mild to moderate systolic dysfunction. Atria The left atrium is moderately dilated. Aortic Valve There is a normal trileaflet aortic valve. There is mild calcification of the aortic valve. There is mild aortic valve stenosis. There is no aortic valve regurgitation. Mitral Valve There is moderate mitral annular calcification. There is mild mitral valve regurgitation. There is no mitral valve stenosis. Pulmonic Valve Normal pulmonic valve structure and function. There is no pulmonic valve regurgitation. Tricuspid Valve Normal tricuspid valve structure. There is mild tricuspid valve regurgitation. The right ventricular systolic pressure is 74 mmHg. Significantly elevated right atrial pressure. Severe pulmonary hypertension is present. Great Vessels All visible segments of the aorta are normal in size. The visualized portions of the pulmonary artery and branches are normal. Venous The inferior vena cava is dilated and collapses less than 50% with inspiration. Pericardium/Pleural There is no evidence of pericardial effusion. Prior Study Comparison No prior study available for comparison. Measurements 2D Linear Measurements IVSd: 1.24 0.6-0.9/0.6-1.0 cm LVIDd: 5.10 3.9-5.3/4.2-5.9 cm LVIDd Index: 2.31 2.4-3.2/2.2-3.1 cm/m2 LVIDs: 3.67 2.0-3.6 cm LVPWd: 1.22 0.7-1.1 cm LA Diam: 4.80 2.7-3.8/3.0-4.0 cm LAIDs Index: 2.17 1.5-2.3 cm/m2 LV Mass: 311.41 67-162/88-224 g LV Mass Index: 140.91 43-95/49-115 g/m2 LVOT Diam: 2.20 3.0+(-)1.3 cm 2D Systolic Function EF 4C: 63.10 >55% EF 2C: 78.90 >55% EF BiP: 73.10 >55% Mitral Valve MV Pk E: 1.19 MV Decel Time: 175.00 E'Lateral: 10.70 E'Medial: 8.49 E/E' Med: 14.00 E/E' Lat: 11.10 PHT: 51.00 MVA PHT: 4.31 Decel [place]: 6.78 Aortic Valve AoV Pk Benjamin: 2.29 AoV Mn Benjamin: 1.39 AoV VTI: 0.34 AoV Pk Grad: 21.00 Aov Mn Grad: 9.00 ADI Cont.VTI: 2.20 LVOT LVOT Pk Benjamin: 1.41 LVOT Mn Benjamin: 0.81 LVOT VTI: 0.20 LVOT Pk Grad: 8.00 LVOT Mn Grad: 3.00 LVOT Diam: 2.20 LVOT Area: 3.80 Diastolic Function MV Pk E: 1.19 E'Medial: 8.49 E/E' Med: 14.00 E' Laterial: 10.70 E/E' Lat: 11.10 Right Ventricle TVS' Benjamin: 9.79 Tricuspid Valve TR Pk Benjamin: 3.83 TR Pk Grad: 59.00 RA Press: 15.00 RVSP: 74.00 Great Vessels Aorta Sinus of Valsalva: 2.70 2.0-3.5 cm Ao Asc: 3.00 2.1-3.4 cm Pulmonary Valve PV Pk Benjamin: 1.26 Peak PV Grad: 6.00 Updated in Other Vendor System with Status of Final Ras Cedillo MD electronically signed on 04/26/2023 1:09:49 PM with status of Final
[2023-04-25 07:08] LABS: Venous Blood Gas Refer to POC result
[2023-04-25 07:23] LABS: Glucose, Whole Blood 119 mg/dL (60-115)
[2023-04-25 08:29] LABS: VBG Base Excess -5.2 mmol/L; VBG HCO3 22 mmol/L (22-26); VBG pCO2 52 mmHg; VBG pH 7.23 (7.32-7.43); VBG pO2 39 mmHg
[2023-04-25 08:36] LABS: Vancomycin Random 25.3 mcg/mL (15-20)
[2023-04-25 08:55] LABS: Venous Blood Gas Refer to POC result
--- NOTE | 2023-04-25 09:31 | P.PNCC_ITS ---
Subjective Subjective Interval History: 77-year-old male with past medical history of systolic and diastolic heart failure, diabetes mellitus, atrial fibrillation, and stage renal disease on dialysis presented to the emergency department on 04/23 for fever, tachycardia, hypertension, hypoxia, abdominal pain, and altered mental status. The patient was started on broad-spectrum antibiotics given septic presentation. The suspected source was from the hemodialysis catheter. Blood cultures came back positive for gram-positive cocci and broad-spectrum antibiotics will be continued for bacteremia. Comment: 45 Physical Exam 2 Vital Signs: Vital Signs: Last Vital Signs Temp 99.0 F 04/25/23 09:00 Pulse 121 H 04/25/23 09:00 Resp 23 H 04/25/23 09:00 BP 111/58 L 04/25/23 09:00 Pulse Ox 99 04/25/23 09:00 O2 Del Method Nasal Cannula 04/25/23 09:00 O2 Flow Rate 2 04/25/23 09:00 BMI result Body Mass Index 29.6 Const: General: no acute distress HEENT: Head: Yes normocephalic Throat: Yes uvula midline Eyes: Pupils: Equal, round and reactive pupils present Neck: Neck: Yes supple and Yes no JVD Resp: Auscultation: diminished lung sounds Cardio: Rate: Other (irregularly irregular) Rhythm: abnormal rhythm H eart sounds: S1 normal heart sound present and S2 normal heart sound present GI: Palpation (GI): Soft to palpation Auscultation: normoactive bowel sounds : General: Yes no CVA tenderness Back/Spine/Pelvis: Back: no CVA tenderness Skin: General skin exam: no rashes or lesions noted Neuro: Cranial nerves: Yes Equal, round and reactive pupils present Motor exam (neuro): 5/5 motor strength present throughout Extrem: General: Yes no clubbing, cyanosis or edema Psych: Speech and movement: Clear speech present Attitude: cooperative Objective Data Labs 04/25/23 04:44 04/25/23 04:44 Labs: Laboratory Results - last 24 hr 04/24/23 04/24/23 04/24/23 11:13 16:52 20:42 WBC RBC Hgb Hct MCV MCH MCHC RDW Plt Count MPV Immature Gran % (Auto) Neut % (Auto) Lymph % (Auto) [place] % (Auto) Eos % (Auto) Baso % (Auto) Lymph # (Auto) [place] # (Auto) Eos # (Auto) Baso # (Auto) Abs Immat Gran (auto) Absolute Neuts (auto) Absolute Nucleated RBC Nucleated RBC % (auto) VBG pH VBG pCO2 VBG pO2 VBG HCO3 VBG O2 Saturation VBG Base Excess Sodium Potassium Chloride Carbon Dioxide Anion Gap BUN Creatinine Estim Creat Clear Calc Estimated GFR POC Glucose 138 H 139 H 144 H Random Glucose Calcium Phosphorus Magnesium Albumin Random Cortisol Random Vancomycin 04/25/23 04/25/23 04/25/23 04:44 04:45 07:21 WBC 8.6 RBC 3.02 L Hgb 8.5 L Hct 28.4 L MCV 94.0 MCH 28.1 MCHC 29.9 L RDW 16.6 H Plt Count 94 L MPV 11.1 Immature Gran % (Auto) 0.7 H Neut % (Auto) 75.5 H Lymph % (Auto) 11.1 L [place] % (Auto) 11.7 H Eos % (Auto) 0.5 Baso % (Auto) 0.5 Lymph # (Auto) 1.0 L [place] # (Auto) 1.0 Eos # (Auto) 0.0 Baso # (Auto) 0.0 Abs Immat Gran (auto) 0.06 H Absolute Neuts (auto) 6.5 Absolute Nucleated RBC 0.020 H Nucleated RBC % (auto) 0.2 VBG pH 7.23 L VBG pCO2 48 VBG pO2 60 VBG HCO3 20 L VBG O2 Saturation 85.0 VBG Base Excess -6.3 Sodium 139 Potassium 4.0 Chloride 102 Carbon Dioxide 20 L Anion Gap 21 H BUN 95 H Creatinine 8.91 H* Estim Creat Clear Calc 8.2 Estimated GFR 6 POC Glucose 119 H Random Glucose 120 H Calcium 8.8 Phosphorus 6.4 H Magnesium 1.9 Albumin 3.7 Random Cortisol 10.5 Random Vancomycin 04/25/23 04/25/23 08:15 08:24 WBC RBC Hgb Hct MCV MCH MCHC RDW Plt Count MPV Immature Gran % (Auto) Neut % (Auto) Lymph % (Auto) [place] % (Auto) Eos % (Auto) Baso % (Auto) Lymph # (Auto) [place] # (Auto) Eos # (Auto) Baso # (Auto) Abs Immat Gran (auto) Absolute Neuts (auto) Absolute Nucleated RBC Nucleated RBC % (auto) VBG pH 7.23 L VBG pCO2 52 VBG pO2 39 VBG HCO3 22 VBG O2 Saturation 56.0 VBG Base Excess -5.2 Sodium Potassium Chloride Carbon Dioxide Anion Gap BUN Creatinine Estim Creat Clear Calc Estimated GFR POC Glucose Random Glucose Calcium Phosphorus Magnesium Albumin Random Cortisol Random Vancomycin 25.3 H* Microbiology Microbiology Results: Microbiology 04/23/23 16:31 Catheter Tip - Other Catheter Tip Culture - Final Methicillin Res Staph Aureus 04/24/23 00:32 Blood - Venous Blood Culture - Preliminary No growth after 24 hours. 04/23/23 11:57 Blood - Venous Blood Culture - Preliminary Staphylococcus aureus 04/23/23 11:26 Blood - Venous Blood Culture - Preliminary Staphylococcus aureus Progress Note: A&P Assessment and plan Plan Patient presented with sepsis. Blood cultures on 04/23 revealed gram-positive cocci. The patient had a hemodialysis access catheter which was the suspected source and was subsequently removed and the tip was sent to micro. Culture results are still pending. Patient was started on broad-spectrum antibiotics. The choice of Zosyn is a first line medication for suspected vascular access device infection. Zosyn has adequate gram positive coverage. The patient will be continued on Zosyn for at least five days intravenously per surviving sepsis campaign guideline recommendations. The patient presented with hypotension with a systolic pressure in the 60 to 70?s. Because of this, the patient was started on Levophed which is the recommended first line agent vasopressor. For patients with septic shock requiring vasopressors, the goal is to maintain MAP of 65 or greater. The patient is still receiving Levophed with MAP?s in the 80s. The patient has a history of end-stage renal disease on hemodialysis. The patient?s creatinine was at 8.15 this morning and was around that level yesterday. The patient did not receive dialysis yesterday and is usually on a Sunday, Sunday, and Sunday schedule. With this in mind, we ordered for a new hemodialysis catheter to be placed. Patient is going to interventional radiology today for catheter placement. With successful placement we will hopefully be able to get dialysis today. With persistent vasopressor use, there is recommendation for steroids intravenously, specifically hydrocortisone 200 mg per day, with a dose of 50 mg every six hours This has been shown to help resolve shock. The patient is receiving hydrocortisone. Due to the presence of end-stage renal disease and the patient requiring dialysis in mixed systolic and diastolic heart failure, caution must be used with administration of Crystalloid solutions for resuscitation.Usual fluid administration for sepsis is 30 ml/kg. The patient was initially given 1 L of IVF with the addition of albumin to maintain oncotic pressure. The patient has a history of type two diabetes mellitus. The patient has had blood glucose is in the low 100s. The patient is on a sliding scale of Lispro which we will continue. The patient has chronic atrial simulation. They are managed with oral anticoagulation at home, Eliquis 2.5 mg b.i.d. The Eliquis is on hold and the patient is currently on heparin bolus for Eliquis and DVT prophylaxis. The patient is currently at a right in the 90s with a fib on monitor. The patient has a diagnosis of COPD. The patient manages this at home with albuterol and Alvesco. The patient received a chest x-ray which revealed central vascular congestion which can be due to the heart failure and end-stage renal disease. Also noted was a small left pleural effusion and underlying atelectasis. A venous blood gas was initially taken due to oxygen saturation in the 80?s to 90s and requiring nasal cannula anywhere from 1 to 3 L. The blood gas was unremarkable for anything significant such as respiratory acidosis or metabolic acidosis. Currently the patient has been maintained at an oxygen saturation of 99% via 2 L nasal cannula. Oxygenation goal is to be Between 88% and 92% on room air. Within the patient?s chart, papers sent over from [facility] facility indicated the patient is taking 5 mg hydrocortisone one daily for unknown reasons. Neither the Nurse nor speaking unit assembler know why the patient was prescribed this but that they do receive it daily. After consultation with inpatient pharmacy, he had indicated that the patient was at [facility] before the [facility] facility and that the code associated with the medication prescription was the code used for cortisol insufficiency. With this in mind, we will be drawing a morning cortisol level on the patient to determine whether systemic corticosteroids should be continued. Quality Stroke Does the patient have a stroke diagnosis?: No VTE Prior VTE?: No VTE Risk Level:: Medical - moderate - high VTE Device Contraindication: N/A - Device Ordered VTE Drug Contraindication: N/A - Med Ordered
--- NOTE | 2023-04-25 10:45 | MHC.CM.PN ---
This blog writer placed call to [facility] re: advanced directives for patient. According to [facility] patient is his own person. Goal for CM today to have patient complete HCP.
--- NOTE | 2023-04-25 11:09 | PM.CCPN ---
Subjective Subjective Date of Service: 04/25/23 Interval History: 77-year-old gentleman with underlying liver cirrhosis, diabetes, AFib, COPD, PVD, combined systolic and diastolic CHF, end-stage renal disease on hemodialysis Sunday/Sunday/Sunday, thrombocytopenia admitted on 04/23/2023 with MRSA bacteremia secondary to infected tunneled dialysis catheter. Internal catheter explanted. Patient started on pressor support and broad-spectrum antibiotics and admitted to intensive care unit. Temporary dialysis catheter placed. No events overnight. Critical Care Time (minutes): 45 Physical Exam Vital Signs: Vital Signs: Last Vital Signs Temp 98.6 F 04/25/23 11:00 Pulse 112 H 04/25/23 11:01 Resp 22 H 04/25/23 11:00 BP 92/45 L 04/25/23 11:01 Pulse Ox 99 04/25/23 11:00 O2 Del Method Nasal Cannula 04/25/23 11:00 O2 Flow Rate 2 04/25/23 11:00 BMI result Body Mass Index 29.6 Const: General: no acute distress, alert and awake Eyes: Sclerae: sclerae normal EOM: EOMs intact bilaterally Neck: Neck: Yes no lymphadenopathy, Yes trachea midline and Yes supple Resp: Effort & Inspection: normal respiratory effort and no respiratory distress Auscultation: clear to auscultation bilaterally Cardio: Rate: tachycardic Rhythm: regular rhythm Heart sounds: no gallops, no murmurs and no rubs GI: Palpation (GI): Soft to palpation and Other GI palpation findings present ( Nontender) Auscultation: normal bowel sounds Extrem: General: Yes no pedal edema, No clubbing and No cyanosis Objective Data Labs 04/25/23 04:44 04/25/23 04:44 Labs: Laboratory Results - last 24 hr 04/24/23 04/24/23 04/24/23 11:13 16:52 20:42 WBC RBC Hgb Hct MCV MCH MCHC RDW Plt Count MPV Immature Gran % (Auto) Neut % (Auto) Lymph % (Auto) [place] % (Auto) Eos % (Auto) Baso % (Auto) Lymph # (Auto) [place] # (Auto) Eos # (Auto) Baso # (Auto) Abs Immat Gran (auto) Absolute Neuts (auto) Absolute Nucleated RBC Nucleated RBC % (auto) VBG pH VBG pCO2 VBG pO2 VBG HCO3 VBG O2 Saturation VBG Base Excess Sodium Potassium Chloride Carbon Dioxide Anion Gap BUN Creatinine Estim Creat Clear Calc Estimated GFR POC Glucose 138 H 139 H 144 H Random Glucose Calcium Phosphorus Magnesium Albumin Random Cortisol Random Vancomycin 04/25/23 04/25/23 04/25/23 04:44 04:45 07:21 WBC 8.6 RBC 3.02 L Hgb 8.5 L Hct 28.4 L MCV 94.0 MCH 28.1 MCHC 29.9 L RDW 16.6 H Plt Count 94 L MPV 11.1 Immature Gran % (Auto) 0.7 H Neut % (Auto) 75.5 H Lymph % (Auto) 11.1 L [place] % (Auto) 11.7 H Eos % (Auto) 0.5 Baso % (Auto) 0.5 Lymph # (Auto) 1.0 L [place] # (Auto) 1.0 Eos # (Auto) 0.0 Baso # (Auto) 0.0 Abs Immat Gran (auto) 0.06 H Absolute Neuts (auto) 6.5 Absolute Nucleated RBC 0.020 H Nucleated RBC % (auto) 0.2 VBG pH 7.23 L VBG pCO2 48 VBG pO2 60 VBG HCO3 20 L VBG O2 Saturation 85.0 VBG Base Excess -6.3 Sodium 139 Potassium 4.0 Chloride 102 Carbon Dioxide 20 L Anion Gap 21 H BUN 95 H Creatinine 8.91 H* Estim Creat Clear Calc 8.2 Estimated GFR 6 POC Glucose 119 H Random Glucose 120 H Calcium 8.8 Phosphorus 6.4 H Magnesium 1.9 Albumin 3.7 Random Cortisol 10.5 Random Vancomycin 04/25/23 04/25/23 08:15 08:24 WBC RBC Hgb Hct MCV MCH MCHC RDW Plt Count MPV Immature Gran % (Auto) Neut % (Auto) Lymph % (Auto) [place] % (Auto) Eos % (Auto) Baso % (Auto) Lymph # (Auto) [place] # (Auto) Eos # (Auto) Baso # (Auto) Abs Immat Gran (auto) Absolute Neuts (auto) Absolute Nucleated RBC Nucleated RBC % (auto) VBG pH 7.23 L VBG pCO2 52 VBG pO2 39 VBG HCO3 22 VBG O2 Saturation 56.0 VBG Base Excess -5.2 Sodium Potassium Chloride Carbon Dioxide Anion Gap BUN Creatinine Estim Creat Clear Calc Estimated GFR POC Glucose Random Glucose Calcium Phosphorus Magnesium Albumin Random Cortisol Random Vancomycin 25.3 H* Microbiology Microbiology Results: Microbiology 04/23/23 11:57 Blood - Venous Blood Culture - Preliminary Staphylococcus aureus 04/23/23 11:26 Blood - Venous Blood Culture - Preliminary Staphylococcus aureus 04/23/23 16:31 Catheter Tip - Other Catheter Tip Culture - Final Methicillin Res Staph Aureus 04/24/23 00:32 Blood - Venous Blood Culture - Preliminary No growth after 24 hours. Progress Note: A&P Assessment and plan (1) MRSA bacteremia: Status: Acute (2) Chronic obstructive pulmonary disease, unspecified: Status: Acute (3) Chronic atrial fibrillation, unspecified: Status: Acute (4) Type 2 diabetes mellitus with diabetic neuropathy, unspecified: Status: Acute (5) Antisocial personality disorder: Status: Acute (6) Chronic combined systolic (congestive) and diastolic (congestive) heart failure: Status: Acute (7) Infection associated with silicone tunneled cuffed peritoneal dialysis catheter: Status: Acute (8) ESRD (end stage renal disease) on dialysis: Status: Acute Plan Assessment: 77-year-old gentleman admitted with septic shock and MRSA bacteremia with source being infected tunneled dialysis catheter, now requiring pressor support. Plan: Neuro: Septic encephalopathy, resolved. Cardiac: Septic shock, continue to titrate off pressor support as tolerated. Underlying AFib , PVD, and combined chronic systolic/diastolic congestive heart failure. Cardiology service appreciated. 2D echo is pending. Pulmonary: Acute on chronic hypoxic respiratory failure secondary to pulmonary edema and patient with end-stage renal disease and congestive heart failure. Renal: End-stage renal disease on hemodialysis. Continue with hemodialysis support. infected tunnel cast explanted. Temporary dialysis catheter placed. Endo: No acute issues. Underlying diabetes mellitus. GI: No acute issues. ID: Septic shock with MRSA bacteremia secondary to skin/soft tissue source. Continue on vancomycin. Heme/Onc: No acute issues. Psych: No acute issues. Underlying antisocial disorder. Miscellaneous: No acute issues. Prophylaxis: Heparin Diet: regular Critical care time spent: 45 minutes Quality Stroke Does the patient have a stroke diagnosis?: No VTE Prior VTE?: No VTE Risk Level:: Medical - moderate - high VTE Device Contraindication: N/A - Device Ordered VTE Drug Contraindication: N/A - Med Ordered
[2023-04-25 12:07] LABS: Glucose, Whole Blood 161 mg/dL (60-115)
--- NOTE | 2023-04-25 12:26 | P.PNCC_ITS ---
Subjective Subjective Interval History: 77-year-old male with past medical history of systolic and diastolic heart failure, diabetes mellitus, atrial fibrillation, and stage renal disease on dialysis presented to the emergency department on 04/23 for fever, tachycardia, hypertension, hypoxia, abdominal pain, and altered mental status. The patient was started on broad-spectrum antibiotics given septic presentation. The suspected source was from the hemodialysis catheter. Blood cultures came back positive for gram-positive cocci and catheter tip culture revealed MRSA. The patient is now receiving vancomycin intravenously which has adequate MRSA coverage.? Comment: 45 Physical Exam 2 Vital Signs: Vital Signs: Last Vital Signs Temp 98.6 F 04/25/23 12:00 Pulse 104 H 04/25/23 12:00 Resp 25 H 04/25/23 12:00 BP 107/62 04/25/23 12:00 Pulse Ox 99 04/25/23 12:00 O2 Del Method Nasal Cannula 04/25/23 12:00 O2 Flow Rate 2 04/25/23 12:00 BMI result Body Mass Index 29.6 Const: General: no acute distress Orientation/consciousness: patient oriented x3 HEENT: Head: Yes normocephalic Throat: Yes uvula midline Eyes: Pupils: Equal, round and reactive pupils present EOM: EOMs intact bilaterally Neck: Neck: Yes supple and Yes no JVD Resp: Auscultation: diminished lung sounds Cardio: Rate: Other (irregularly irregular) Rhythm: abnormal rhythm H eart sounds: S1 normal heart sound present and S2 normal heart sound present GI: Palpation (GI): Soft to palpation Auscultation: normoactive bowel sounds : General: Yes no CVA tenderness Back/Spine/Pelvis: Back: no CVA tenderness Skin: General skin exam: no rashes or lesions noted Neuro: General: patient oriented x3 and moves all extremities Cranial nerves: Yes Equal, round and reactive pupils present Extrem: General: Yes no clubbing, cyanosis or edema Psych: Attitude: cooperative Objective Data Labs 04/25/23 04:44 04/25/23 04:44 Labs: Laboratory Results - last 24 hr 04/24/23 04/24/23 04/25/23 16:52 20:42 04:44 WBC 8.6 RBC 3.02 L Hgb 8.5 L Hct 28.4 L MCV 94.0 MCH 28.1 MCHC 29.9 L RDW 16.6 H Plt Count 94 L MPV 11.1 Immature Gran % (Auto) 0.7 H Neut % (Auto) 75.5 H Lymph % (Auto) 11.1 L [place] % (Auto) 11.7 H Eos % (Auto) 0.5 Baso % (Auto) 0.5 Lymph # (Auto) 1.0 L [place] # (Auto) 1.0 Eos # (Auto) 0.0 Baso # (Auto) 0.0 Abs Immat Gran (auto) 0.06 H Absolute Neuts (auto) 6.5 Absolute Nucleated RBC 0.020 H Nucleated RBC % (auto) 0.2 VBG pH VBG pCO2 VBG pO2 VBG HCO3 VBG O2 Saturation VBG Base Excess Sodium 139 Potassium 4.0 Chloride 102 Carbon Dioxide 20 L Anion Gap 21 H BUN 95 H Creatinine 8.91 H* Estim Creat Clear Calc 8.2 Estimated GFR 6 POC Glucose 139 H 144 H Random Glucose 120 H Calcium 8.8 Phosphorus 6.4 H Magnesium 1.9 Albumin 3.7 Random Cortisol 10.5 Random Vancomycin 04/25/23 04/25/23 04/25/23 04:45 07:21 08:15 WBC RBC Hgb Hct MCV MCH MCHC RDW Plt Count MPV Immature Gran % (Auto) Neut % (Auto) Lymph % (Auto) [place] % (Auto) Eos % (Auto) Baso % (Auto) Lymph # (Auto) [place] # (Auto) Eos # (Auto) Baso # (Auto) Abs Immat Gran (auto) Absolute Neuts (auto) Absolute Nucleated RBC Nucleated RBC % (auto) VBG pH 7.23 L VBG pCO2 48 VBG pO2 60 VBG HCO3 20 L VBG O2 Saturation 85.0 VBG Base Excess -6.3 Sodium Potassium Chloride Carbon Dioxide Anion Gap BUN Creatinine Estim Creat Clear Calc Estimated GFR POC Glucose 119 H Random Glucose Calcium Phosphorus Magnesium Albumin Random Cortisol Random Vancomycin 25.3 H* 04/25/23 04/25/23 08:24 12:03 WBC RBC Hgb Hct MCV MCH MCHC RDW Plt Count MPV Immature Gran % (Auto) Neut % (Auto) Lymph % (Auto) [place] % (Auto) Eos % (Auto) Baso % (Auto) Lymph # (Auto) [place] # (Auto) Eos # (Auto) Baso # (Auto) Abs Immat Gran (auto) Absolute Neuts (auto) Absolute Nucleated RBC Nucleated RBC % (auto) VBG pH 7.23 L VBG pCO2 52 VBG pO2 39 VBG HCO3 22 VBG O2 Saturation 56.0 VBG Base Excess -5.2 Sodium Potassium Chloride Carbon Dioxide Anion Gap BUN Creatinine Estim Creat Clear Calc Estimated GFR POC Glucose 161 H Random Glucose Calcium Phosphorus Magnesium Albumin Random Cortisol Random Vancomycin Microbiology Microbiology Results: Microbiology 04/23/23 11:57 Blood - Venous Blood Culture - Preliminary Staphylococcus aureus 04/23/23 11:26 Blood - Venous Blood Culture - Preliminary Staphylococcus aureus 04/23/23 16:31 Catheter Tip - Other Catheter Tip Culture - Final Methicillin Res Staph Aureus 04/24/23 00:32 Blood - Venous Blood Culture - Preliminary No growth after 24 hours. Progress Note: A&P Assessment and plan Plan Patient presented with sepsis. Blood cultures on 04/23 revealed gram-positive cocci. The patient had a hemodialysis access catheter which was the suspected source and was subsequently removed and the tip was sent to micro. Culture results are still pending. Patient was started on broad-spectrum antibiotics. The choice of Zosyn is a first line medication for suspected vascular access device infection. Cultures of catheter tip revealed MRSA in the patient has been started on vancomycin IV which is a first line agent for treating MRSA infections. The patient presented with hypotension with a systolic pressure in the 60 to 70?s. Because of this, the patient was started on Levophed which is the recommended first line agent vasopressor. For patients with septic shock requiring vasopressors, the goal is to maintain MAP of 65 or greater. The patient is still receiving Levophed with MAP?s in the 70?s with hopes to slowly titrate off of in the coming days. The patient has a history of end-stage renal disease on hemodialysis. The patient?s creatinine was at 8.91 as of this morning. The patient has dialysis access site at the right neck and will be utilized for dialysis today.. Due to the presence of end-stage renal disease and the patient requiring dialysis in mixed systolic and diastolic heart failure, caution must be used with administration of Crystalloid solutions for resuscitation.Usual fluid administration for sepsis is 30 ml/kg. The patient was initially given 1 L of IVF with the addition of albumin to maintain oncotic pressure. The patient is continuing to receive fluids that are only mixed with other medication?s which includes vancomycin in about 300 mL of normal saline. The patient has a history of type two diabetes mellitus. The patient has had blood glucose is in the low 100s. The patient is on a sliding scale of Lispro which we will continue. The patient has chronic atrial fibrillation. They are managed with oral anticoagulation at home, Eliquis 2.5 mg b.i.d. The Eliquis is on hold and the patient is currently on heparin bolus for a fib and DVT prophylaxis. The patient is currently at a right in the 90s with a fib on monitor. The patient has a diagnosis of COPD. The patient manages this at home with albuterol and Alvesco. The patient received a chest x-ray which revealed central vascular congestion which can be due to the heart failure and end-stage renal disease. Also noted was a small left pleural effusion and underlying atelectasis. A venous blood gas was initially taken due to oxygen saturation in the 80?s to 90s and requiring nasal cannula anywhere from 1 to 3 L. The most recent venous blood gas reveals a pH of 7.23 but all other values unremarkable. Currently the patient has been maintained at an oxygen saturation of 99% via 2 L nasal cannula. Oxygenation goal is to be Between 88% and 92% on room air. Patient had morning cortisol draw. Found to be within normal range of 10.5. We will not continue hydrocortisone 5 mg once daily that the patient was receiving prior to admission. Quality Stroke Does the patient have a stroke diagnosis?: No VTE Prior VTE?: No VTE Risk Level:: Medical - moderate - high VTE Device Contraindication: N/A - Device Ordered VTE Drug Contraindication: N/A - Med Ordered
[2023-04-25] MEDS: Norepinephrine Bitartrate/D5W 8 MG/250 ML PLAST..BAG 26.4 MG IV ×2 (12:50→22:17)
[2023-04-25] MEDS: Insulin Lispro 100 UNIT/ML 3 ML VIAL SUBCUT ×2 (12:51→16:51)
--- NOTE | 2023-04-25 14:00 | W.PM.DNNEP ---
Subjective Subjective This patient was seen during dialysis. Interval history: Events ntoed Physical Exam Vital Signs: Vital Signs: Last Vital Signs Temp 98.6 F 04/25/23 12:00 Pulse 107 H 04/25/23 13:11 Resp 16 04/25/23 13:00 BP 98/37 L 04/25/23 13:11 Pulse Ox 96 04/25/23 13:00 O2 Del Method Nasal Cannula 04/25/23 12:00 O2 Flow Rate 2 04/25/23 13:00 BMI result Body Mass Index 29.6 intubated Assessment & Plan Assessment and plan (1) ESRD (end stage renal disease) on dialysis: Status: Acute Plan HD today Remove fluid as tolerated Agree with antibiotic coverage Time Spent With Patient Time: Total time managing care of this patient today ____ minutes. Procedures Date of Service Date of Service: 04/26/23
[2023-04-25] MEDS: Heparin Sodium,Porcine 5,000 UNIT/ML VIAL 5000 UNIT SUBCUT ×2 (15:13→22:59)
[2023-04-25 16:24] LABS: Glucose, Whole Blood 190 mg/dL (60-115)
[2023-04-25 16:33] LABS: Vancomycin Random 19.2 mcg/mL (15-20)
[2023-04-25 20:31] LABS: Glucose, Whole Blood 144 mg/dL (60-115)
[2023-04-26] VITALS (35 sets, daily range): BP systolic 74–128; BP diastolic 36–64; PULSE 84–123; RESP 12–26; TEMP 36.5–37; O2SAT 88–100; BMI 29.7
[2023-04-26] MEDS: Midazolam HCl/PF 2 MG/2 ML VIAL 0.5 MG IVPUSH (02:45)
[2023-04-26 04:48] LABS: VBG Base Excess -5.7 mmol/L; VBG HCO3 22 mmol/L (22-26); VBG pCO2 55 mmHg; VBG pH 7.21 (7.32-7.43); VBG pO2 42 mmHg
[2023-04-26 04:53] LABS: Venous Blood Gas Refer to POC result
[2023-04-26] MEDS: Sodium Bicarbonate 8.4% 50 MEQ/50 ML SYRINGE IVPUSH (05:15)
[2023-04-26] MEDS: Heparin Sodium,Porcine 5,000 UNIT/ML VIAL 5000 UNIT SUBCUT ×2 (05:26→14:25)
[2023-04-26 05:29] LABS: Imm Gran Abs Auto 0.05 X10*3/uL (0.00-0.03); Imm Gran Pct Auto 0.6 % (0.0-0.4); PLT CLUMP 1; SCAN SMEAR FLAG 1
[2023-04-26 05:31] LABS: Basophils Percent Auto 0.1 % (0-2); Eosinophils Absolute Auto 0.1 X10*3/uL (0.0-0.4); Eosinophils Percent Auto 1.1 % (0-4); Hematocrit 28.8 % (42.0-52.0); Hemoglobin 8.6 g/dl (14.0-18.0); Lymphocytes Absolute Auto 1.2 X10*3/uL (1.2-4.9); Lymphocytes Percent Auto 14.5 % (20-40); Mean Corpuscular HGB Conc 29.9 g/dl (31.0-36.0); Mean Corpuscular Hemoglobin 27.7 pg (27.0-33.0); Mean Corpuscular Volume 92.6 fL (80.0-98.0); Mean Platelet Volume 10.9 fL (9.4-12.4); Monocytes Percent Auto 12.5 % (2-11); Neutrophils Absolute Auto 5.7 x10*3/uL (2.0-8.3); Neutrophils Percent Auto 71.2 % (45-73); Red Blood Count 3.11 X10*6/uL (4.60-5.80); Red Cell Distribution Width 16.6 % (11.0-16.0)
[2023-04-26 05:34] LABS: Platelet Count 83 X10*3/uL (160-400)
[2023-04-26 05:35] LABS: MANUAL DIFF FLAG NO
[2023-04-26 05:53] LABS: Albumin Level 3.7 g/dL (3.5-5.0); Anion Gap 17 (12-20); Blood Urea Nitrogen 50 mg/dL (9-16); Calcium 8.9 mg/dL (8.4-10.2); Carbon Dioxide 19 mmol/L (22-29); Chloride 101 mmol/L (96-108); Creatinine Clr Calc Pharmacy 12.6; Estimated Glomerular Filt Rate 9; Glucose Random 127 mg/dL (60-115); Phosphorus 5.1 mg/dL (2.7-4.5); Potassium 4.1 mmol/L (3.3-5.1); Sodium 133 mmol/L (135-145)
[2023-04-26] MEDS: Norepinephrine Bitartrate/D5W 8 MG/250 ML PLAST..BAG 26.4 MG IV (06:05)
--- NOTE | 2023-04-26 06:25 | PC.NURSE ---
PT A&O X3 BUT VAGUE AT TIMES. SPEECH IS GARBLED. WAS UP IN RECLINER AT THE START OF THIS SHIFT. HE WAS ASSISTED BTB WITH 2 ASSISTS AND USE OF WALKER. HE WAS WEAK BUT ABLE TO BEAR HIS OWN WEIGHT AND PIVOT TO BED. NO ACUTE RESP DISTRESS OVERNIGHT. O2 ON AT 2L VIA NC. PT BECAME MORE RESTLESS DURING THE NIGHT AND KEPT TAKING OFF O2 AND TRYING TO GET OOB. NURSE PRACTITIONER AT BEDSIDE AND ORDERED VERSED 0.5MG IV WITH GOOD EFFECT. HE FELL ASLEEP BUT WAS STILL AROUSABLE. HE SLEPT IN NAPS. LEVOPHED INFUSING AT 0.16 MVG/KG/MIN. BP STABLE. HERNANDEZ WAS REMOVED AT 2100. 0-10 ML/HR OF URINE NOTED BEFORE HERNANDEZ OUT. PT WAS INCONTINENT OF URINE ONCE AT 0200. HE VOIDED A SMALL AMOUNT AND GEOFFREY CARE GIVEN. PER VBG RESULT, PT RECEIVED 1 AMP OF SADIUM BICARB AND AT THIS TIME, BIPAP APPLIED 10/5 AND 30%.
[2023-04-26 07:32] LABS: Glucose, Whole Blood 135 mg/dL (60-115)
[2023-04-26] MEDS: Midodrine HCl 10 MG TABLET PO ×3 (08:55→21:11)
--- NOTE | 2023-04-26 10:23 | PM.PNNEP ---
Subjective Subjective Date of Service: 04/26/23 Interval history: Events noted Physical Exam Vital Signs: Vital Signs: Last Vital Signs Temp 98.3 F 04/26/23 09:00 Pulse 110 H 04/26/23 10:13 Resp 21 H 04/26/23 10:00 BP 112/56 L 04/26/23 10:13 Pulse Ox 88 L 04/26/23 10:00 O2 Del Method Nasal Cannula 04/26/23 10:00 O2 Flow Rate 2 04/26/23 10:00 FiO2 30 04/26/23 07:00 BMI result Body Mass Index 29.7 Not vented Neck is supple Lung: Air entry equal with few rhonchi Heart: S1,S2, normal. No rub Abd: Soft. BS + Ext: No edema Objective Data Labs 04/26/23 04:43 04/26/23 04:43 Labs: Laboratory Results - last 24 hr 04/25/23 04/25/23 04/25/23 12:03 16:06 16:21 WBC RBC Hgb Hct MCV MCH MCHC RDW Plt Count MPV Immature Gran % (Auto) Neut % (Auto) Lymph % (Auto) [place] % (Auto) Eos % (Auto) Baso % (Auto) Lymph # (Auto) [place] # (Auto) Eos # (Auto) Baso # (Auto) Abs Immat Gran (auto) Absolute Neuts (auto) Absolute Nucleated RBC Nucleated RBC % (auto) VBG pH VBG pCO2 VBG pO2 VBG HCO3 VBG O2 Saturation VBG Base Excess Sodium Potassium Chloride Carbon Dioxide Anion Gap BUN Creatinine Estim Creat Clear Calc Estimated GFR POC Glucose 161 H 190 H Random Glucose Calcium Phosphorus Magnesium Albumin Random Vancomycin 19.2 04/25/23 04/26/23 04/26/23 20:28 04:43 07:29 WBC 8.0 RBC 3.11 L Hgb 8.6 L Hct 28.8 L MCV 92.6 MCH 27.7 MCHC 29.9 L RDW 16.6 H Plt Count 83 L MPV 10.9 Immature Gran % (Auto) 0.6 H Neut % (Auto) 71.2 Lymph % (Auto) 14.5 L [place] % (Auto) 12.5 H Eos % (Auto) 1.1 Baso % (Auto) 0.1 Lymph # (Auto) 1.2 [place] # (Auto) 1.0 Eos # (Auto) 0.1 Baso # (Auto) 0.0 Abs Immat Gran (auto) 0.05 H Absolute Neuts (auto) 5.7 Absolute Nucleated RBC 0.000 Nucleated RBC % (auto) 0.0 VBG pH 7.21 L VBG pCO2 55 VBG pO2 42 VBG HCO3 22 VBG O2 Saturation 67.0 VBG Base Excess -5.7 Sodium 133 L Potassium 4.1 Chloride 101 Carbon Dioxide 19 L Anion Gap 17 BUN 50 H Creatinine 5.90 H* Estim Creat Clear Calc 12.6 Estimated GFR 9 POC Glucose 144 H 135 H Random Glucose 127 H Calcium 8.9 Phosphorus 5.1 H Magnesium 2.0 Albumin 3.7 Random Vancomycin Microbiology Microbiology Results: Microbiology 04/25/23 12:29 Blood - Venous Blood Culture - Preliminary Prelim: GPC Gram Stain only 04/24/23 00:32 Blood - Venous Blood Culture - Preliminary No growth after 48 hours. 04/23/23 11:57 Blood - Venous Blood Culture - Preliminary Staphylococcus aureus 04/23/23 11:26 Blood - Venous Blood Culture - Preliminary Staphylococcus aureus 04/23/23 16:31 Catheter Tip - Other Catheter Tip Culture - Final Methicillin Res Staph Aureus Procedures Date of Service Date of Service: 04/26/23 Assessment & Plan Assessment and plan (1) ESRD (end stage renal disease) on dialysis: Status: Acute Plan HD again tomorrow Remove fluid as tolerated On Vanco for MRSA Added Procrit [id number] U sq x 1 dose today for anemia Time Spent With Patient Time: Total time managing care of this patient today ____ minutes. Progress Note: Quality Stroke Does the patient have a stroke diagnosis?: No
--- NOTE | 2023-04-26 11:12 | P.PNCC_ITS ---
Subjective Subjective Date of Service: 04/26/23 Interval History: 77-year-old gentleman with underlying liver cirrhosis, diabetes, AFib, COPD, PVD, combined systolic and diastolic CHF, end-stage renal disease on hemodialysis Sunday/Sunday/Sunday, thrombocytopenia admitted on 04/23/2023 with MRSA bacteremia secondary to infected tunneled dialysis catheter. Internal catheter explanted. Patient started on pressor support and broad-spectrum antibiotics and admitted to intensive care unit. Temporary dialysis catheter placed. No events overnight. Pressor requirements improvement. Repeat blood cultures negative to date. Critical Care Time (minutes): 45 Physical Exam 2 Vital Signs: Vital Signs: Last Vital Signs Temp 98.3 F 04/26/23 09:00 Pulse 95 04/26/23 11:00 Resp 23 H 04/26/23 11:00 BP 112/56 L 04/26/23 11:00 Pulse Ox 96 04/26/23 11:00 O2 Del Method Nasal Cannula 04/26/23 11:00 O2 Flow Rate 2 04/26/23 11:00 FiO2 30 04/26/23 07:00 BMI result Body Mass Index 29.7 Const: General: no acute distress, alert and awake Eyes: Sclerae: sclerae normal EOM: EOMs intact bilaterally Neck: Neck: Yes no lymphadenopathy, Yes trachea midline and Yes supple Resp: Effort & Inspection: normal respiratory effort and no respiratory distress Auscultation: clear to auscultation bilaterally Cardio: Rate: regular rate Rhythm: regular rhythm Heart sounds: no gallops, no murmurs and no rubs GI: Palpation (GI): Soft to palpation and Other GI palpation findings present ( Nontender) Auscultation: normal bowel sounds Extrem: General: Yes no pedal edema, No clubbing and No cyanosis Objective Data Labs 04/26/23 04:43 04/26/23 04:43 Labs: Laboratory Results - last 24 hr 04/25/23 04/25/23 04/25/23 12:03 16:06 16:21 WBC RBC Hgb Hct MCV MCH MCHC RDW Plt Count MPV Immature Gran % (Auto) Neut % (Auto) Lymph % (Auto) [place] % (Auto) Eos % (Auto) Baso % (Auto) Lymph # (Auto) [place] # (Auto) Eos # (Auto) Baso # (Auto) Abs Immat Gran (auto) Absolute Neuts (auto) Absolute Nucleated RBC Nucleated RBC % (auto) VBG pH VBG pCO2 VBG pO2 VBG HCO3 VBG O2 Saturation VBG Base Excess Sodium Potassium Chloride Carbon Dioxide Anion Gap BUN Creatinine Estim Creat Clear Calc Estimated GFR POC Glucose 161 H 190 H Random Glucose Calcium Phosphorus Magnesium Albumin Random Vancomycin 19.2 04/25/23 04/26/23 04/26/23 20:28 04:43 07:29 WBC 8.0 RBC 3.11 L Hgb 8.6 L Hct 28.8 L MCV 92.6 MCH 27.7 MCHC 29.9 L RDW 16.6 H Plt Count 83 L MPV 10.9 Immature Gran % (Auto) 0.6 H Neut % (Auto) 71.2 Lymph % (Auto) 14.5 L [place] % (Auto) 12.5 H Eos % (Auto) 1.1 Baso % (Auto) 0.1 Lymph # (Auto) 1.2 [place] # (Auto) 1.0 Eos # (Auto) 0.1 Baso # (Auto) 0.0 Abs Immat Gran (auto) 0.05 H Absolute Neuts (auto) 5.7 Absolute Nucleated RBC 0.000 Nucleated RBC % (auto) 0.0 VBG pH 7.21 L VBG pCO2 55 VBG pO2 42 VBG HCO3 22 VBG O2 Saturation 67.0 VBG Base Excess -5.7 Sodium 133 L Potassium 4.1 Chloride 101 Carbon Dioxide 19 L Anion Gap 17 BUN 50 H Creatinine 5.90 H* Estim Creat Clear Calc 12.6 Estimated GFR 9 POC Glucose 144 H 135 H Random Glucose 127 H Calcium 8.9 Phosphorus 5.1 H Magnesium 2.0 Albumin 3.7 Random Vancomycin Microbiology Microbiology Results: Microbiology 04/23/23 11:57 Blood - Venous Blood Culture - Final Staphylococcus aureus 04/23/23 11:26 Blood - Venous Blood Culture - Final Staphylococcus aureus 04/25/23 12:29 Blood - Venous Blood Culture - Preliminary Prelim: GPC Gram Stain only 04/24/23 00:32 Blood - Venous Blood Culture - Preliminary No growth after 48 hours. 04/23/23 16:31 Catheter Tip - Other Catheter Tip Culture - Final Methicillin Res Staph Aureus Progress Note: A&P Assessment and plan (1) MRSA bacteremia: Status: Acute (2) Chronic obstructive pulmonary disease, unspecified: Status: Acute (3) Chronic atrial fibrillation, unspecified: Status: Acute (4) Type 2 diabetes mellitus with diabetic neuropathy, unspecified: Status: Acute (5) Antisocial personality disorder: Status: Acute (6) Chronic combined systolic (congestive) and diastolic (congestive) heart failure: Status: Acute (7) Infection associated with silicone tunneled cuffed peritoneal dialysis catheter: Status: Acute (8) ESRD (end stage renal disease) on dialysis: Status: Acute Plan Assessment: 77-year-old gentleman admitted with septic shock and MRSA bacteremia with source being infected tunneled dialysis catheter, now requiring pressor support. Plan: Neuro: Septic encephalopathy, waxing and waning. Cardiac: Septic shock, continue to titrate off pressor support as tolerated. Underlying AFib , PVD, and combined chronic systolic/diastolic congestive heart failure. Cardiology service appreciated. 2D echo is pending. Restart home midodrine regimen. Pulmonary: Acute on chronic hypoxic respiratory failure secondary to pulmonary edema and patient with end-stage renal disease and congestive heart failure , improved with dialysis. Renal: End-stage renal disease on hemodialysis. Continue with hemodialysis support. Infected tunnel cast explanted. Temporary dialysis catheter placed. Nephrology service care appreciated. Endo: No acute issues. Underlying diabetes mellitus. GI: No acute issues. ID: Septic shock with MRSA bacteremia secondary to skin/soft tissue source. Continue on vancomycin. Heme/Onc: No acute issues. Psych: No acute issues. Underlying antisocial disorder. Miscellaneous: No acute issues. Prophylaxis: Heparin Diet: regular Critical care time spent: 45 minutes Quality Stroke Does the patient have a stroke diagnosis?: No VTE Prior VTE?: No VTE Risk Level:: Medical - moderate - high VTE Device Contraindication: N/A - Device Ordered VTE Drug Contraindication: N/A - Med Ordered
[2023-04-26 11:33] LABS: Glucose, Whole Blood 151 mg/dL (60-115)
[2023-04-26] MEDS: Insulin Lispro 100 UNIT/ML 3 ML VIAL SUBCUT (11:51)
--- NOTE | 2023-04-26 13:08 | MHC.CM.PN ---
Pt continues care in ICU: on ATB for bacteremia: temp HD port placed w/HD session today. Pt is a LTC resident of [facility] and will return when medically stable. Clinical updates remitted to facility: Pt presenting with some confusion: Alert to person and place but not time and situation. CM unable to notify pt's next of contact, brother Alexander as number is no longer in service. [facility] does not have an updated contact number. CM to follow for updates and d/c needs.
--- NOTE | 2023-04-26 13:47 | HE.PHANOTE ---
re lori continue current dose. pt did not get dialysis today (there was a discussion for it). Call tomorrow and verify dialysis time and put in a post dialysis level as needed kumar
--- NOTE | 2023-04-26 13:57 | P.PNCC_ITS ---
Subjective Subjective Interval History: 77-year-old male with past medical history of systolic and diastolic heart failure, diabetes mellitus, atrial fibrillation, and stage renal disease on dialysis presented to the emergency department on 04/23 for fever, tachycardia, hypertension, hypoxia, abdominal pain, and altered mental status. The patient was started on broad-spectrum antibiotics given septic presentation. The suspected source was from the hemodialysis catheter. Blood cultures came back positive for MRSA. The patient is now receiving vancomycin intravenously which has adequate MRSA coverage. The patient is also receiving vasopressors which are being titrated down as appropriate. Comment: 45 Physical Exam 2 Vital Signs: Vital Signs: Last Vital Signs Temp 98.6 F 04/26/23 12:00 Pulse 84 04/26/23 13:43 Resp 15 04/26/23 13:00 BP 99/55 L 04/26/23 13:43 Pulse Ox 94 04/26/23 13:00 O2 Del Method Nasal Cannula 04/26/23 13:00 O2 Flow Rate 2 04/26/23 13:00 FiO2 30 04/26/23 07:00 BMI result Body Mass Index 29.7 Const: General: no acute distress HEENT: Head: Yes atraumatic Throat: Yes uvula midline Eyes: Pupils: Equal, round and reactive pupils present Neck: Neck: Yes trachea midline and Yes no JVD Resp: Effort & Inspection: normal respiratory effort Auscultation: d iminished lung sounds Cardio: Rate: Other (a fib) Rhythm: abnormal rhythm Heart sounds: S1 normal heart sound present and S2 normal heart sound present GI: Palpation (GI): Soft to palpation : General: Yes no CVA tenderness Back/Spine/Pelvis: Back: no CVA tenderness Skin: General skin exam: no rashes or lesions noted Neuro: Cranial nerves: Yes Equal, round and reactive pupils present Motor exam (neuro): 5/5 motor strength present throughout Extrem: General: Yes no clubbing, cyanosis or edema and Yes no calf tenderness Objective Data Labs 04/26/23 04:43 04/26/23 04:43 Labs: Laboratory Results - last 24 hr 04/25/23 04/25/23 04/25/23 16:06 16:21 20:28 WBC RBC Hgb Hct MCV MCH MCHC RDW Plt Count MPV Immature Gran % (Auto) Neut % (Auto) Lymph % (Auto) [place] % (Auto) Eos % (Auto) Baso % (Auto) Lymph # (Auto) [place] # (Auto) Eos # (Auto) Baso # (Auto) Abs Immat Gran (auto) Absolute Neuts (auto) Absolute Nucleated RBC Nucleated RBC % (auto) VBG pH VBG pCO2 VBG pO2 VBG HCO3 VBG O2 Saturation VBG Base Excess Sodium Potassium Chloride Carbon Dioxide Anion Gap BUN Creatinine Estim Creat Clear Calc Estimated GFR POC Glucose 190 H 144 H Random Glucose Calcium Phosphorus Magnesium Albumin Random Vancomycin 19.2 04/26/23 04/26/23 04/26/23 04:43 07:29 11:29 WBC 8.0 RBC 3.11 L Hgb 8.6 L Hct 28.8 L MCV 92.6 MCH 27.7 MCHC 29.9 L RDW 16.6 H Plt Count 83 L MPV 10.9 Immature Gran % (Auto) 0.6 H Neut % (Auto) 71.2 Lymph % (Auto) 14.5 L [place] % (Auto) 12.5 H Eos % (Auto) 1.1 Baso % (Auto) 0.1 Lymph # (Auto) 1.2 [place] # (Auto) 1.0 Eos # (Auto) 0.1 Baso # (Auto) 0.0 Abs Immat Gran (auto) 0.05 H Absolute Neuts (auto) 5.7 Absolute Nucleated RBC 0.000 Nucleated RBC % (auto) 0.0 VBG pH 7.21 L VBG pCO2 55 VBG pO2 42 VBG HCO3 22 VBG O2 Saturation 67.0 VBG Base Excess -5.7 Sodium 133 L Potassium 4.1 Chloride 101 Carbon Dioxide 19 L Anion Gap 17 BUN 50 H Creatinine 5.90 H* Estim Creat Clear Calc 12.6 Estimated GFR 9 POC Glucose 135 H 151 H Random Glucose 127 H Calcium 8.9 Phosphorus 5.1 H Magnesium 2.0 Albumin 3.7 Random Vancomycin Microbiology Microbiology Results: Microbiology 04/23/23 11:57 Blood - Venous Blood Culture - Final Staphylococcus aureus 04/23/23 11:26 Blood - Venous Blood Culture - Final Staphylococcus aureus 04/23/23 16:31 Catheter Tip - Other Catheter Tip Culture - Final Methicillin Res Staph Aureus 04/25/23 12:29 Blood - Venous Blood Culture - Preliminary Prelim: GPC Gram Stain only 04/24/23 00:32 Blood - Venous Blood Culture - Preliminary No growth after 48 hours. Progress Note: A&P Assessment and plan Plan Patient presented with sepsis. Blood cultures on 04/23 revealed gram-positive cocci. The patient had a hemodialysis access catheter which was the suspected source and was subsequently removed and the tip was sent to micro. Culture results are still pending. Patient was started on broad-spectrum antibiotics. The choice of Zosyn is a first line medication for suspected vascular access device infection. Cultures of catheter tip revealed MRSA in the patient has been started on vancomycin IV which is a first line agent for treating MRSA infections. The patient presented with hypotension with a systolic pressure in the 60 to 70?s. Because of this, the patient was started on Levophed which is the recommended first line agent vasopressor. For patients with septic shock requiring vasopressors, the goal is to maintain a MAP of 65 or greater. The patient is still receiving Levophed with MAP?s in the 70?s with hopes to slowly titrate off of in the coming days. As of this morning, the patient was receiving 0.05 mcg/kg/min and is now at 0.02 mcg/kg/min in maintaining a MAP of 79. The patient has a history of end-stage renal disease on hemodialysis. The patient?s creatinine was at 5.9 as of this morning. The patient received dialysis yesterday and tolerated well. We are also resuming the patient?s midodrine 5 mg three times per day that they were taking prior to the hospital admission. Due to the presence of end-stage renal disease and the patient requiring dialysis in mixed systolic and diastolic heart failure, caution must be used with administration of Crystalloid solutions for resuscitation.Usual fluid administration for sepsis is 30 ml/kg. The patient was initially given 1 L of IVF with the addition of albumin to maintain oncotic pressure. The patient is continuing to receive fluids that are only mixed with other medication?s which includes vancomycin in about 300 mL of normal saline. The patient does have low urine output at baseline with their kidney disease putting no more than 10 cc per hour out of their Kyle catheter that is in place. The patient has a history of type two diabetes mellitus. The patient has had blood glucose is in the low 100s. The patient is on a sliding scale of Lispro which we will continue. The patient has chronic atrial fibrillation. They are managed with oral anticoagulation at home, Eliquis 2.5 mg b.i.d. The Eliquis is on hold and the patient is currently on heparin bolus for a fib and DVT prophylaxis. The patient is currently at a right in the 90s with a fib on monitor. The patient has a diagnosis of COPD. The patient manages this at home with albuterol and Alvesco. The patient received a chest x-ray which revealed central vascular congestion which can be due to the heart failure and end-stage renal disease. Also noted was a small left pleural effusion and underlying atelectasis. A venous blood gas was initially taken due to oxygen saturation in the 80?s to 90s and requiring nasal cannula anywhere from 1 to 3 L. The most recent venous blood gas reveals a pH of 7.21 but all other values unremarkable. Currently the patient has been maintained at an oxygen saturation of 99% via 2 L nasal cannula. Oxygenation goal is to be Between 88% and 92% on room air. It is also believed that this acidosis could be from their existing end-stage renal disease rather than respiratory cause. Quality Stroke Does the patient have a stroke diagnosis?: No VTE Prior VTE?: No VTE Risk Level:: Medical - moderate - high VTE Device Contraindication: N/A - Device Ordered VTE Drug Contraindication: N/A - Med Ordered
[2023-04-26 16:51] LABS: Glucose, Whole Blood 82 mg/dL (60-115)
[2023-04-26 21:06] LABS: Glucose, Whole Blood 88 mg/dL (60-115)
[2023-04-27] VITALS (33 sets, daily range): BP systolic 70–122; BP diastolic 35–70; PULSE 20–120; RESP 15–21; TEMP 36.4–36.9; O2SAT 88–100; BMI 28.3
[2023-04-27] MEDS: Norepinephrine Bitartrate/D5W 8 MG/250 ML PLAST..BAG 4.95 MG IV (05:10)
[2023-04-27] MEDS: Heparin Sodium,Porcine 5,000 UNIT/ML VIAL 5000 UNIT SUBCUT ×3 (05:11→20:32)
[2023-04-27 05:16] LABS: VBG Base Excess -5.8 mmol/L; VBG HCO3 21 mmol/L (22-26); VBG pCO2 49 mmHg; VBG pH 7.24 (7.32-7.43); VBG pO2 101 mmHg
[2023-04-27 05:18] LABS: Venous Blood Gas Refer to POC result
[2023-04-27 05:27] LABS: Basophils Percent Auto 0.4 % (0-2); Hemoglobin 7.9 g/dl (14.0-18.0); NRBC Pct Auto 0.3 /100WBC (0.0-0.2); PLT CLUMP 1; Red Cell Distribution Width 16.4 % (11.0-16.0); SCAN SMEAR FLAG 1
[2023-04-27 05:28] LABS: Eosinophils Absolute Auto 0.1 X10*3/uL (0.0-0.4); Eosinophils Percent Auto 1.7 % (0-4); Hematocrit 26.3 % (42.0-52.0); Imm Gran Abs Auto 0.07 X10*3/uL (0.00-0.03); Lymphocytes Absolute Auto 1.3 X10*3/uL (1.2-4.9); Lymphocytes Percent Auto 17.9 % (20-40); Mean Corpuscular Hemoglobin 27.9 pg (27.0-33.0); Mean Corpuscular Volume 92.9 fL (80.0-98.0); Mean Platelet Volume 11.3 fL (9.4-12.4); Monocytes Absolute Auto 0.8 X10*3/uL (0.1-1.2); Monocytes Percent Auto 11.6 % (2-11); Neutrophils Absolute Auto 4.9 x10*3/uL (2.0-8.3); Neutrophils Percent Auto 67.4 % (45-73); Red Blood Count 2.83 X10*6/uL (4.60-5.80)
[2023-04-27 05:30] LABS: MANUAL DIFF FLAG NO; Platelet Count 83 X10*3/uL (160-400); White Blood Count 7.3 X10*3/uL (4.8-10.8)
[2023-04-27 05:46] LABS: Albumin Level 3.5 g/dL (3.5-5.0); Anion Gap 16 (12-20); Blood Urea Nitrogen 65 mg/dL (9-16); Calcium 8.8 mg/dL (8.4-10.2); Carbon Dioxide 21 mmol/L (22-29); Chloride 100 mmol/L (96-108); Creatinine Clr Calc Pharmacy 9.9; Estimated Glomerular Filt Rate 7; Glucose Random 80 mg/dL (60-115); Magnesium 1.9 mg/dL (1.6-2.6); Phosphorus 6.4 mg/dL (2.7-4.5); Potassium 4.1 mmol/L (3.3-5.1); Sodium 133 mmol/L (135-145)
[2023-04-27 07:36] LABS: Glucose, Whole Blood 75 mg/dL (60-115)
--- NOTE | 2023-04-27 08:58 | P.PNCC_ITS ---
Subjective Subjective Date of Service: 04/27/23 Interval History: 77-year-old gentleman with underlying liver cirrhosis, diabetes, AFib, COPD, PVD, combined systolic and diastolic CHF, end-stage renal disease on hemodialysis Sunday/Sunday/Sunday, thrombocytopenia admitted on 04/23/2023 with MRSA bacteremia secondary to infected tunneled dialysis catheter. Internal catheter explanted. Patient started on pressor support and broad-spectrum antibiotics and admitted to intensive care unit. Temporary dialysis catheter placed. No events overnight. Critical Care Time (minutes): 30 Physical Exam 2 Vital Signs: Vital Signs: Last Vital Signs Temp 97.5 F 04/27/23 08:00 Pulse 20 L 04/27/23 08:00 Resp 19 04/27/23 08:00 BP 102/70 04/27/23 08:00 Pulse Ox 97 04/27/23 08:00 O2 Del Method Nasal Cannula 04/27/23 08:00 O2 Flow Rate 2 04/27/23 08:00 FiO2 30 04/26/23 07:00 BMI result Body Mass Index 28.3 Const: General: no acute distress, alert and awake Eyes: Sclerae: sclerae normal EOM: EOMs intact bilaterally Neck: Neck: Yes no lymphadenopathy, Yes trachea midline and Yes supple Resp: Effort & Inspection: normal respiratory effort and no respiratory distress Auscultation: clear to auscultation bilaterally Cardio: Rate: regular rate Rhythm: regular rhythm Heart sounds: no gallops, no murmurs and no rubs GI: Palpation (GI): Soft to palpation and Other GI palpation findings present ( Nontender) Auscultation: normal bowel sounds Extrem: General: Yes no pedal edema, No clubbing and No cyanosis Objective Data Labs 04/27/23 05:07 04/27/23 05:07 Labs: Laboratory Results - last 24 hr 04/26/23 04/26/23 04/26/23 11:29 16:37 21:03 WBC RBC Hgb Hct MCV MCH MCHC RDW Plt Count MPV Immature Gran % (Auto) Neut % (Auto) Lymph % (Auto) [place] % (Auto) Eos % (Auto) Baso % (Auto) Lymph # (Auto) [place] # (Auto) Eos # (Auto) Baso # (Auto) Abs Immat Gran (auto) Absolute Neuts (auto) Absolute Nucleated RBC Nucleated RBC % (auto) VBG pH VBG pCO2 VBG pO2 VBG HCO3 VBG O2 Saturation VBG Base Excess Sodium Potassium Chloride Carbon Dioxide Anion Gap BUN Creatinine Estim Creat Clear Calc Estimated GFR POC Glucose 151 H 82 88 Random Glucose Calcium Phosphorus Magnesium Albumin 04/27/23 04/27/23 04/27/23 05:07 05:12 07:21 WBC 7.3 RBC 2.83 L Hgb 7.9 L Hct 26.3 L MCV 92.9 MCH 27.9 MCHC 30.0 L RDW 16.4 H Plt Count 83 L MPV 11.3 Immature Gran % (Auto) 1.0 H Neut % (Auto) 67.4 Lymph % (Auto) 17.9 L [place] % (Auto) 11.6 H Eos % (Auto) 1.7 Baso % (Auto) 0.4 Lymph # (Auto) 1.3 [place] # (Auto) 0.8 Eos # (Auto) 0.1 Baso # (Auto) 0.0 Abs Immat Gran (auto) 0.07 H Absolute Neuts (auto) 4.9 Absolute Nucleated RBC 0.020 H Nucleated RBC % (auto) 0.3 H VBG pH 7.24 L VBG pCO2 49 VBG pO2 101 VBG HCO3 21 L VBG O2 Saturation 98.0 VBG Base Excess -5.8 Sodium 133 L Potassium 4.1 Chloride 100 Carbon Dioxide 21 L Anion Gap 16 BUN 65 H Creatinine 7.30 H* Estim Creat Clear Calc 9.9 Estimated GFR 7 POC Glucose 75 Random Glucose 80 Calcium 8.8 Phosphorus 6.4 H Magnesium 1.9 Albumin 3.5 Microbiology Microbiology Results: Microbiology 04/25/23 12:29 Blood - Venous Blood Culture - Preliminary No growth after 24 hours. 04/23/23 11:57 Blood - Venous Blood Culture - Final Staphylococcus aureus 04/23/23 11:26 Blood - Venous Blood Culture - Final Staphylococcus aureus 04/23/23 16:31 Catheter Tip - Other Catheter Tip Culture - Final Methicillin Res Staph Aureus 04/25/23 12:29 Blood - Venous Blood Culture - Preliminary Prelim: GPC Gram Stain only 04/24/23 00:32 Blood - Venous Blood Culture - Preliminary No growth after 48 hours. Progress Note: A&P Assessment and plan (1) MRSA bacteremia: Status: Acute (2) Chronic obstructive pulmonary disease, unspecified: Status: Acute (3) Chronic atrial fibrillation, unspecified: Status: Acute (4) Type 2 diabetes mellitus with diabetic neuropathy, unspecified: Status: Acute (5) Antisocial personality disorder: Status: Acute (6) Chronic combined systolic (congestive) and diastolic (congestive) heart failure: Status: Acute (7) Infection associated with silicone tunneled cuffed peritoneal dialysis catheter: Status: Acute (8) ESRD (end stage renal disease) on dialysis: Status: Acute Plan Assessment: 77-year-old gentleman admitted with septic shock and MRSA bacteremia with source being infected tunneled dialysis catheter, now requiring pressor support. Plan: Neuro: Septic encephalopathy, waxing and waning. Cardiac: Septic shock, continue to titrate off pressor support as tolerated. Underlying AFib , PVD, and combined chronic systolic/diastolic congestive heart failure. Cardiology service appreciated. 2D echo with no vegetation. Continue home midodrine regimen. Pulmonary: Acute on chronic hypoxic respiratory failure secondary to pulmonary edema and patient with end-stage renal disease and congestive heart failure , improved with dialysis. Renal: End-stage renal disease on hemodialysis. Continue with hemodialysis support. Infected tunnel cast explanted. Temporary dialysis catheter placed. Nephrology service care appreciated. Endo: No acute issues. Underlying diabetes mellitus. GI: No acute issues. ID: Septic shock with MRSA bacteremia secondary to skin/soft tissue source. Continue on vancomycin. Heme/Onc: No acute issues. Psych: No acute issues. Underlying antisocial disorder. Miscellaneous: No acute issues. Prophylaxis: Heparin Diet: regular Critical care time spent: 30 minutes Quality Stroke Does the patient have a stroke diagnosis?: No VTE Prior VTE?: No VTE Risk Level:: Medical - moderate - high VTE Device Contraindication: N/A - Device Ordered VTE Drug Contraindication: N/A - Med Ordered
[2023-04-27] MEDS: Midodrine HCl 10 MG TABLET PO ×3 (09:46→20:30)
[2023-04-27] MEDS: Albumin Human 25 % 100 ML IV ×2 (11:05→11:53)
[2023-04-27 11:46] LABS: Glucose, Whole Blood 112 mg/dL (60-115)
[2023-04-27] MEDS: Hydrocortisone 10 MG TABLET PO (11:53)
[2023-04-27 13:59] LABS: Vancomycin Random 15.2 mcg/mL (15-20)
--- NOTE | 2023-04-27 14:57 | MHC.CM.PN ---
Patient remains in ICU, CM will continue to follow for any d/c planning needs.
--- NOTE | 2023-04-27 15:38 | PM.PNNEP ---
Subjective Subjective Date of Service: 04/27/23 Interval history: dialyzed today Physical Exam Vital Signs: Vital Signs: Last Vital Signs Temp 98.5 F 04/27/23 12:00 Pulse 69 04/27/23 15:00 Resp 17 04/27/23 15:00 BP 96/61 04/27/23 15:00 Pulse Ox 99 04/27/23 15:00 O2 Del Method Nasal Cannula 04/27/23 15:00 O2 Flow Rate 2 04/27/23 15:00 FiO2 30 04/26/23 07:00 BMI result Body Mass Index 28.3 Const: General: awake Orientation/consciousness: patient oriented x3 Resp: Effort & Inspection: normal respiratory effort Auscultation: clear to auscultation bilaterally GI: Palpation (GI): Soft to palpation Neuro: General: patient oriented x3 Extrem: General: Yes edema ( trace bilateral) Objective Data Labs 04/27/23 05:07 04/27/23 05:07 Labs: Laboratory Results - last 24 hr 04/26/23 04/26/23 04/27/23 16:37 21:03 05:07 WBC 7.3 RBC 2.83 L Hgb 7.9 L Hct 26.3 L MCV 92.9 MCH 27.9 MCHC 30.0 L RDW 16.4 H Plt Count 83 L MPV 11.3 Immature Gran % (Auto) 1.0 H Neut % (Auto) 67.4 Lymph % (Auto) 17.9 L [place] % (Auto) 11.6 H Eos % (Auto) 1.7 Baso % (Auto) 0.4 Lymph # (Auto) 1.3 [place] # (Auto) 0.8 Eos # (Auto) 0.1 Baso # (Auto) 0.0 Abs Immat Gran (auto) 0.07 H Absolute Neuts (auto) 4.9 Absolute Nucleated RBC 0.020 H Nucleated RBC % (auto) 0.3 H VBG pH VBG pCO2 VBG pO2 VBG HCO3 VBG O2 Saturation VBG Base Excess Sodium 133 L Potassium 4.1 Chloride 100 Carbon Dioxide 21 L Anion Gap 16 BUN 65 H Creatinine 7.30 H* Estim Creat Clear Calc 9.9 Estimated GFR 7 POC Glucose 82 88 Random Glucose 80 Calcium 8.8 Phosphorus 6.4 H Magnesium 1.9 Albumin 3.5 Random Vancomycin 04/27/23 04/27/23 04/27/23 05:12 07:21 11:39 WBC RBC Hgb Hct MCV MCH MCHC RDW Plt Count MPV Immature Gran % (Auto) Neut % (Auto) Lymph % (Auto) [place] % (Auto) Eos % (Auto) Baso % (Auto) Lymph # (Auto) [place] # (Auto) Eos # (Auto) Baso # (Auto) Abs Immat Gran (auto) Absolute Neuts (auto) Absolute Nucleated RBC Nucleated RBC % (auto) VBG pH 7.24 L VBG pCO2 49 VBG pO2 101 VBG HCO3 21 L VBG O2 Saturation 98.0 VBG Base Excess -5.8 Sodium Potassium Chloride Carbon Dioxide Anion Gap BUN Creatinine Estim Creat Clear Calc Estimated GFR POC Glucose 75 112 Random Glucose Calcium Phosphorus Magnesium Albumin Random Vancomycin 04/27/23 13:09 WBC RBC Hgb Hct MCV MCH MCHC RDW Plt Count MPV Immature Gran % (Auto) Neut % (Auto) Lymph % (Auto) [place] % (Auto) Eos % (Auto) Baso % (Auto) Lymph # (Auto) [place] # (Auto) Eos # (Auto) Baso # (Auto) Abs Immat Gran (auto) Absolute Neuts (auto) Absolute Nucleated RBC Nucleated RBC % (auto) VBG pH VBG pCO2 VBG pO2 VBG HCO3 VBG O2 Saturation VBG Base Excess Sodium Potassium Chloride Carbon Dioxide Anion Gap BUN Creatinine Estim Creat Clear Calc Estimated GFR POC Glucose Random Glucose Calcium Phosphorus Magnesium Albumin Random Vancomycin 15.2 Microbiology Microbiology Results: Microbiology 04/25/23 12:29 Blood - Venous Blood Culture - Preliminary No growth after 48 hours. 04/25/23 12:29 Blood - Venous Blood Culture - Preliminary Staphylococcus aureus 04/23/23 11:57 Blood - Venous Blood Culture - Final Staphylococcus aureus 04/23/23 11:26 Blood - Venous Blood Culture - Final Staphylococcus aureus 04/23/23 16:31 Catheter Tip - Other Catheter Tip Culture - Final Methicillin Res Staph Aureus 04/24/23 00:32 Blood - Venous Blood Culture - Preliminary No growth after 48 hours. Procedures Date of Service Date of Service: 04/27/23 Assessment & Plan Assessment and plan (1) ESRD (end stage renal disease) on dialysis: Status: Acute Plan 77-year-old gentleman with underlying liver cirrhosis, diabetes, AFib, COPD, PVD, combined systolic and diastolic CHF, end-stage renal disease on hemodialysis [place]/Sunday/Sunday, thrombocytopenia admitted on 04/23/2023 with MRSA bacteremia secondary to infected tunneled dialysis catheter. Internal catheter explanted. Patient started on pressor support and broad-spectrum antibiotics and admitted to intensive care unit. Temporary dialysis catheter placed. Plan: - iHD today per [facility] schedule - [place] post HD - [place] will end up being best line for retirement Abx - temp line for now, will need permcath replaced once cultures are 48 hours neg. Time Spent With Patient Time: Total time managing care of this patient today ____ minutes. Progress Note: Quality Stroke Does the patient have a stroke diagnosis?: No
[2023-04-27 16:29] LABS: Glucose, Whole Blood 128 mg/dL (60-115)
[2023-04-27 21:35] LABS: Glucose, Whole Blood 139 mg/dL (60-115)
[2023-04-28] VITALS (16 sets, daily range): BP systolic 96–130; BP diastolic 43–78; PULSE 67–97; RESP 15–20; TEMP 36.1–37; O2SAT 88–99; BMI 28.3
[2023-04-28 05:43] LABS: VBG Base Excess -2.5 mmol/L; VBG HCO3 23 mmol/L (22-26); VBG pCO2 42 mmHg; VBG pH 7.33 (7.32-7.43); VBG pO2 62 mmHg
[2023-04-28 06:09] LABS: MANUAL DIFF FLAG NO
[2023-04-28 06:16] LABS: Basophils Percent Auto 0.7 % (0-2); Eosinophils Absolute Auto 0.2 X10*3/uL (0.0-0.4); Eosinophils Percent Auto 2.7 % (0-4); Hematocrit 24.3 % (42.0-52.0); Hemoglobin 7.3 g/dl (14.0-18.0); Imm Gran Abs Auto 0.05 X10*3/uL (0.00-0.03); Imm Gran Pct Auto 0.9 % (0.0-0.4); Lymphocytes Absolute Auto 1.4 X10*3/uL (1.2-4.9); Lymphocytes Percent Auto 24.4 % (20-40); Mean Corpuscular Hemoglobin 28.1 pg (27.0-33.0); Mean Corpuscular Volume 93.5 fL (80.0-98.0); Mean Platelet Volume 10.8 fL (9.4-12.4); Monocytes Absolute Auto 0.7 X10*3/uL (0.1-1.2); Monocytes Percent Auto 11.1 % (2-11); Neutrophils Absolute Auto 3.5 x10*3/uL (2.0-8.3); Neutrophils Percent Auto 60.2 % (45-73); Platelet Count 106 X10*3/uL (160-400); Red Cell Distribution Width 16.3 % (11.0-16.0); White Blood Count 5.9 X10*3/uL (4.8-10.8)
[2023-04-28 06:33] LABS: Albumin Level 3.8 g/dL (3.5-5.0); Anion Gap 18 (12-20); Blood Urea Nitrogen 42 mg/dL (9-16); Calcium 9.1 mg/dL (8.4-10.2); Carbon Dioxide 19 mmol/L (22-29); Chloride 99 mmol/L (96-108); Creatinine Clr Calc Pharmacy 13.3; Estimated Glomerular Filt Rate 10; Glucose Random 74 mg/dL (60-115); Phosphorus 5.6 mg/dL (2.7-4.5); Potassium 3.8 mmol/L (3.3-5.1); Sodium 132 mmol/L (135-145)
[2023-04-28 07:04] LABS: Venous Blood Gas Refer to POC result
[2023-04-28 07:30] LABS: Glucose, Whole Blood 81 mg/dL (60-115)
[2023-04-28] MEDS: Hydrocortisone 10 MG TABLET PO (08:05)
[2023-04-28] MEDS: Midodrine HCl 10 MG TABLET PO ×2 (08:05→21:25)
--- NOTE | 2023-04-28 09:25 | PM.CCPN ---
Subjective Subjective Date of Service: 04/28/23 Interval History: 77-year-old gentleman with underlying liver cirrhosis, diabetes, AFib, COPD, PVD, combined systolic and diastolic CHF, end-stage renal disease on hemodialysis Sunday/Sunday/Sunday, thrombocytopenia admitted on 04/23/2023 with MRSA bacteremia secondary to infected tunneled dialysis catheter. Internal catheter explanted. Patient started on pressor support and broad-spectrum antibiotics and admitted to intensive care unit. Temporary dialysis catheter placed. No events overnight. Titrated off pressors. Critical Care Time (minutes): 0 Physical Exam Vital Signs: Vital Signs: Last Vital Signs Temp 97.7 F 04/28/23 08:00 Pulse 69 04/28/23 09:00 Resp 15 04/28/23 09:00 BP 106/64 04/28/23 09:00 Pulse Ox 96 04/28/23 09:00 O2 Del Method Nasal Cannula 04/28/23 09:00 O2 Flow Rate 2 04/28/23 09:00 FiO2 30 04/26/23 07:00 BMI result Body Mass Index 28.3 Const: General: no acute distress, alert and awake Eyes: Sclerae: sclerae normal EOM: EOMs intact bilaterally Neck: Neck: Yes no lymphadenopathy, Yes trachea midline and Yes supple Resp: Effort & Inspection: normal respiratory effort and no respiratory distress Auscultation: clear to auscultation bilaterally Cardio: Rate: regular rate Rhythm: regular rhythm Heart sounds: no gallops, no murmurs and no rubs GI: Palpation (GI): Soft to palpation and Other GI palpation findings present ( Nontender) Auscultation: normal bowel sounds Extrem: General: Yes no pedal edema, No clubbing and No cyanosis Objective Data Labs 04/28/23 05:37 04/28/23 05:37 Labs: Laboratory Results - last 24 hr 04/27/23 04/27/23 04/27/23 11:39 13:09 16:23 WBC RBC Hgb Hct MCV MCH MCHC RDW Plt Count MPV Immature Gran % (Auto) Neut % (Auto) Lymph % (Auto) [place] % (Auto) Eos % (Auto) Baso % (Auto) Lymph # (Auto) [place] # (Auto) Eos # (Auto) Baso # (Auto) Abs Immat Gran (auto) Absolute Neuts (auto) Absolute Nucleated RBC Nucleated RBC % (auto) VBG pH VBG pCO2 VBG pO2 VBG HCO3 VBG O2 Saturation VBG Base Excess Sodium Potassium Chloride Carbon Dioxide Anion Gap BUN Creatinine Estim Creat Clear Calc Estimated GFR POC Glucose 112 128 H Random Glucose Calcium Phosphorus Magnesium Albumin Random Vancomycin 15.2 04/27/23 04/28/23 04/28/23 21:31 05:37 05:38 WBC 5.9 RBC 2.60 L Hgb 7.3 L Hct 24.3 L MCV 93.5 MCH 28.1 MCHC 30.0 L RDW 16.3 H Plt Count 106 L D MPV 10.8 Immature Gran % (Auto) 0.9 H Neut % (Auto) 60.2 Lymph % (Auto) 24.4 [place] % (Auto) 11.1 H Eos % (Auto) 2.7 Baso % (Auto) 0.7 Lymph # (Auto) 1.4 [place] # (Auto) 0.7 Eos # (Auto) 0.2 Baso # (Auto) 0.0 Abs Immat Gran (auto) 0.05 H Absolute Neuts (auto) 3.5 Absolute Nucleated RBC 0.000 Nucleated RBC % (auto) 0.0 VBG pH 7.33 VBG pCO2 42 VBG pO2 62 VBG HCO3 23 VBG O2 Saturation 90.0 VBG Base Excess -2.5 Sodium 132 L Potassium 3.8 Chloride 99 Carbon Dioxide 19 L Anion Gap 18 BUN 42 H Creatinine 5.47 H* Estim Creat Clear Calc 13.3 Estimated GFR 10 POC Glucose 139 H Random Glucose 74 Calcium 9.1 Phosphorus 5.6 H Magnesium 2.0 Albumin 3.8 Random Vancomycin 04/28/23 07:26 WBC RBC Hgb Hct MCV MCH MCHC RDW Plt Count MPV Immature Gran % (Auto) Neut % (Auto) Lymph % (Auto) [place] % (Auto) Eos % (Auto) Baso % (Auto) Lymph # (Auto) [place] # (Auto) Eos # (Auto) Baso # (Auto) Abs Immat Gran (auto) Absolute Neuts (auto) Absolute Nucleated RBC Nucleated RBC % (auto) VBG pH VBG pCO2 VBG pO2 VBG HCO3 VBG O2 Saturation VBG Base Excess Sodium Potassium Chloride Carbon Dioxide Anion Gap BUN Creatinine Estim Creat Clear Calc Estimated GFR POC Glucose 81 Random Glucose Calcium Phosphorus Magnesium Albumin Random Vancomycin Microbiology Microbiology Results: Microbiology 04/25/23 12:29 Blood - Venous Blood Culture - Final Staphylococcus aureus 04/25/23 12:29 Blood - Venous Blood Culture - Preliminary No growth after 48 hours. 04/23/23 11:57 Blood - Venous Blood Culture - Final Staphylococcus aureus 04/23/23 11:26 Blood - Venous Blood Culture - Final Staphylococcus aureus 04/23/23 16:31 Catheter Tip - Other Catheter Tip Culture - Final Methicillin Res Staph Aureus 04/24/23 00:32 Blood - Venous Blood Culture - Preliminary No growth after 48 hours. Progress Note: A&P Assessment and plan (1) MRSA bacteremia: Status: Acute (2) Chronic obstructive pulmonary disease, unspecified: Status: Acute (3) Chronic atrial fibrillation, unspecified: Status: Acute (4) Type 2 diabetes mellitus with diabetic neuropathy, unspecified: Status: Acute (5) Antisocial personality disorder: Status: Acute (6) Chronic combined systolic (congestive) and diastolic (congestive) heart failure: Status: Acute (7) Infection associated with silicone tunneled cuffed peritoneal dialysis catheter: Status: Acute (8) ESRD (end stage renal disease) on dialysis: Status: Acute Plan Assessment: 77-year-old gentleman admitted with septic shock and MRSA bacteremia with source being infected tunneled dialysis catheter, now requiring pressor support. Plan: Neuro: Septic encephalopathy, waxing and waning. Cardiac: Septic shock, resolved. Underlying AFib , PVD, and combined chronic systolic/diastolic congestive heart failure. Cardiology service appreciated. 2D echo with no vegetation. Continue home midodrine regimen. Pulmonary: Acute on chronic hypoxic respiratory failure secondary to pulmonary edema and patient with end-stage renal disease and congestive heart failure , improved with dialysis. Renal: End-stage renal disease on hemodialysis. Continue with hemodialysis support. Infected tunnel cast explanted. Temporary dialysis catheter placed. Nephrology service care appreciated. Endo: No acute issues. Underlying diabetes mellitus. GI: No acute issues. ID: Septic shock with MRSA bacteremia secondary to skin/soft tissue source. Continue on vancomycin. Heme/Onc: No acute issues. Psych: No acute issues. Underlying antisocial disorder. Miscellaneous: No acute issues. Prophylaxis: Heparin Diet: regular Critical care time spent: 30 minutes Quality Stroke Does the patient have a stroke diagnosis?: No VTE Prior VTE?: No VTE Risk Level:: Medical - moderate - high VTE Device Contraindication: N/A - Device Ordered VTE Drug Contraindication: N/A - Med Ordered
--- NOTE | 2023-04-28 09:28 | PM.PNNEP ---
Subjective Subjective Date of Service: 04/28/23 Interval history: dialyzed yesterday Physical Exam Vital Signs: Vital Signs: Last Vital Signs Temp 97.7 F 04/28/23 08:00 Pulse 69 04/28/23 09:00 Resp 15 04/28/23 09:00 BP 106/64 04/28/23 09:00 Pulse Ox 96 04/28/23 09:00 O2 Del Method Nasal Cannula 04/28/23 09:00 O2 Flow Rate 2 04/28/23 09:00 FiO2 30 04/26/23 07:00 BMI result Body Mass Index 28.3 Const: General: awake Orientation/consciousness: patient oriented x3 Resp: Effort & Inspection: normal respiratory effort Auscultation: clear to auscultation bilaterally GI: Palpation (GI): Soft to palpation Neuro: General: patient oriented x3 Extrem: General: Yes edema ( trace bilateral) Objective Data Labs 04/28/23 05:37 04/28/23 05:37 Labs: Laboratory Results - last 24 hr 04/27/23 04/27/23 04/27/23 11:39 13:09 16:23 WBC RBC Hgb Hct MCV MCH MCHC RDW Plt Count MPV Immature Gran % (Auto) Neut % (Auto) Lymph % (Auto) [place] % (Auto) Eos % (Auto) Baso % (Auto) Lymph # (Auto) [place] # (Auto) Eos # (Auto) Baso # (Auto) Abs Immat Gran (auto) Absolute Neuts (auto) Absolute Nucleated RBC Nucleated RBC % (auto) VBG pH VBG pCO2 VBG pO2 VBG HCO3 VBG O2 Saturation VBG Base Excess Sodium Potassium Chloride Carbon Dioxide Anion Gap BUN Creatinine Estim Creat Clear Calc Estimated GFR POC Glucose 112 128 H Random Glucose Calcium Phosphorus Magnesium Albumin Random Vancomycin 15.2 04/27/23 04/28/23 04/28/23 21:31 05:37 05:38 WBC 5.9 RBC 2.60 L Hgb 7.3 L Hct 24.3 L MCV 93.5 MCH 28.1 MCHC 30.0 L RDW 16.3 H Plt Count 106 L D MPV 10.8 Immature Gran % (Auto) 0.9 H Neut % (Auto) 60.2 Lymph % (Auto) 24.4 [place] % (Auto) 11.1 H Eos % (Auto) 2.7 Baso % (Auto) 0.7 Lymph # (Auto) 1.4 [place] # (Auto) 0.7 Eos # (Auto) 0.2 Baso # (Auto) 0.0 Abs Immat Gran (auto) 0.05 H Absolute Neuts (auto) 3.5 Absolute Nucleated RBC 0.000 Nucleated RBC % (auto) 0.0 VBG pH 7.33 VBG pCO2 42 VBG pO2 62 VBG HCO3 23 VBG O2 Saturation 90.0 VBG Base Excess -2.5 Sodium 132 L Potassium 3.8 Chloride 99 Carbon Dioxide 19 L Anion Gap 18 BUN 42 H Creatinine 5.47 H* Estim Creat Clear Calc 13.3 Estimated GFR 10 POC Glucose 139 H Random Glucose 74 Calcium 9.1 Phosphorus 5.6 H Magnesium 2.0 Albumin 3.8 Random Vancomycin 04/28/23 07:26 WBC RBC Hgb Hct MCV MCH MCHC RDW Plt Count MPV Immature Gran % (Auto) Neut % (Auto) Lymph % (Auto) [place] % (Auto) Eos % (Auto) Baso % (Auto) Lymph # (Auto) [place] # (Auto) Eos # (Auto) Baso # (Auto) Abs Immat Gran (auto) Absolute Neuts (auto) Absolute Nucleated RBC Nucleated RBC % (auto) VBG pH VBG pCO2 VBG pO2 VBG HCO3 VBG O2 Saturation VBG Base Excess Sodium Potassium Chloride Carbon Dioxide Anion Gap BUN Creatinine Estim Creat Clear Calc Estimated GFR POC Glucose 81 Random Glucose Calcium Phosphorus Magnesium Albumin Random Vancomycin Microbiology Microbiology Results: Microbiology 04/25/23 12:29 Blood - Venous Blood Culture - Final Staphylococcus aureus 04/25/23 12:29 Blood - Venous Blood Culture - Preliminary No growth after 48 hours. 04/23/23 11:57 Blood - Venous Blood Culture - Final Staphylococcus aureus 04/23/23 11:26 Blood - Venous Blood Culture - Final Staphylococcus aureus 04/23/23 16:31 Catheter Tip - Other Catheter Tip Culture - Final Methicillin Res Staph Aureus 04/24/23 00:32 Blood - Venous Blood Culture - Preliminary No growth after 48 hours. Procedures Date of Service Date of Service: 04/28/23 Assessment & Plan Assessment and plan (1) ESRD (end stage renal disease) on dialysis: Status: Acute Plan 77-year-old gentleman with underlying liver cirrhosis, diabetes, AFib, COPD, PVD, combined systolic and diastolic CHF, end-stage renal disease on hemodialysis [place]/Sunday/Sunday, thrombocytopenia admitted on 04/23/2023 with MRSA bacteremia secondary to infected tunneled dialysis catheter. Internal catheter explanted. Patient started on pressor support and broad-spectrum antibiotics and admitted to intensive care unit. Temporary dialysis catheter placed. Plan: - iHD next will be on Sunday per [facility] schedule - [facility] post HD - [place] will end up being best line for [facility] Abx - temp line for now, will need permcath replaced once cultures are 48 hours neg. Time Spent With Patient Time: Total time managing care of this patient today ____ minutes. Progress Note: Quality Stroke Does the patient have a stroke diagnosis?: No
[2023-04-28 11:45] LABS: Glucose, Whole Blood 130 mg/dL (60-115)
[2023-04-28 15:57] LABS: Glucose, Whole Blood 115 mg/dL (60-115)
[2023-04-28 20:55] LABS: Glucose, Whole Blood 93 mg/dL (60-115)
[2023-04-28] MEDS: Ascorbic Acid 250 MG TABLET PO (21:25)
[2023-04-28] MEDS: Atorvastatin Calcium 20 MG TABLET PO (21:25)
[2023-04-28] MEDS: Sevelamer Carbonate Tablet 800 MG TABLET PO (21:25)
[2023-04-29 03:45] VITALS: BP 112/58; PULSE 70; RESP 18; TEMP 36.1; O2SAT 96
[2023-04-29] MEDS: Omeprazole 20 MG CAPSULE.DR PO (06:03)
[2023-04-29] MEDS: Heparin Sodium,Porcine 5,000 UNIT/ML VIAL 5000 UNIT SUBCUT ×2 (06:03→17:12)
[2023-04-29 07:11] LABS: Glucose, Whole Blood 89 mg/dL (60-115)
[2023-04-29 07:28] VITALS: BP 124/81; PULSE 82; RESP 20; TEMP 36.3; O2SAT 100
[2023-04-29 08:13] LABS: MANUAL DIFF FLAG NO
[2023-04-29 08:21] LABS: Basophils Percent Auto 0.4 % (0-2); Eosinophils Absolute Auto 0.3 X10*3/uL (0.0-0.4); Eosinophils Percent Auto 4.3 % (0-4); Hematocrit 25.2 % (42.0-52.0); Hemoglobin 7.6 g/dl (14.0-18.0); Imm Gran Abs Auto 0.05 X10*3/uL (0.00-0.03); Imm Gran Pct Auto 0.7 % (0.0-0.4); Lymphocytes Absolute Auto 1.7 X10*3/uL (1.2-4.9); Lymphocytes Percent Auto 23.8 % (20-40); Mean Corpuscular HGB Conc 30.2 g/dl (31.0-36.0); Mean Platelet Volume 10.5 fL (9.4-12.4); Monocytes Absolute Auto 0.7 X10*3/uL (0.1-1.2); Monocytes Percent Auto 10.3 % (2-11); Neutrophils Absolute Auto 4.3 x10*3/uL (2.0-8.3); Neutrophils Percent Auto 60.5 % (45-73); Platelet Count 156 X10*3/uL (160-400); Red Blood Count 2.71 X10*6/uL (4.60-5.80); Red Cell Distribution Width 16.5 % (11.0-16.0); White Blood Count 7.2 X10*3/uL (4.8-10.8)
[2023-04-29 08:53] LABS: Albumin Level 3.9 g/dL (3.5-5.0); Anion Gap 19 (12-20); Blood Urea Nitrogen 50 mg/dL (9-16); Calcium 9.2 mg/dL (8.4-10.2); Carbon Dioxide 20 mmol/L (22-29); Chloride 97 mmol/L (96-108); Creatinine Clr Calc Pharmacy 10.9; Estimated Glomerular Filt Rate 8; Glucose Random 69 mg/dL (60-115); Magnesium 2.1 mg/dL (1.6-2.6); Phosphorus 6.1 mg/dL (2.7-4.5); Potassium 3.5 mmol/L (3.3-5.1); Sodium 132 mmol/L (135-145)
[2023-04-29] MEDS: Ascorbic Acid 250 MG TABLET PO ×3 (09:06→20:04)
[2023-04-29] MEDS: Hydrocortisone 10 MG TABLET PO (09:06)
[2023-04-29] MEDS: Midodrine HCl 10 MG TABLET PO ×3 (09:06→20:04)
[2023-04-29] MEDS: Multivitamin TABLET 1 TAB PO (09:06)
[2023-04-29] MEDS: Thiamine HCL 100 MG TABLET PO (09:07)
[2023-04-29] MEDS: Ferrous Sulfate 324 MG TABLET.DR PO (09:07)
[2023-04-29] MEDS: Cholecalciferol (Vitamin D3) 25 MCG TABLET PO (09:07)
[2023-04-29 11:11] LABS: Glucose, Whole Blood 103 mg/dL (60-115)
[2023-04-29 11:23] VITALS: BP 125/69; PULSE 90; RESP 20; TEMP 36.2; O2SAT 98
--- NOTE | 2023-04-29 13:24 | HO.PM.IMPN ---
Subjective Subjective Date of Service: 04/29/23 Interval History: Seen and evaluated this morning comfortable, denies any fever or chills On 2L O2 No other overnight events Review of Systems Review of Systems: Yes all other systems are reviewed and are negative Physical Exam Vital Signs: Vital Signs: Last Vital Signs Temp 97.1 F 04/29/23 11:23 Pulse 90 04/29/23 11:23 Resp 20 04/29/23 11:23 BP 125/69 04/29/23 11:23 Pulse Ox 98 04/29/23 11:23 O2 Del Method Nasal Cannula 04/29/23 11:23 O2 Flow Rate 1 04/29/23 11:23 FiO2 30 04/26/23 07:00 BMI result Body Mass Index 28.3 Const: Other: Constitutional : Awake, interactive, not in distress Neck : Normal inspection, Supple, Dialysis catheter in place Cardiovascular : RRR, no JVP, no lower extremity edema Respiratory : good bilateral air entry, no crackles, wheezes or rhonchi, on O2 supplement Gastrointestinal: soft, lax, Normal bowel sounds, Non tender Skin : Warm, Dry, site of permacath clean with no erythema or drainage Neurological : Alert & oriented x3, No focal deficit Objective Data Active Medications Albuterol Sulfate (Albuterol Sulfate 90 Mcg 8 Gm Inhaler) 1 puff INHALE Q6H PRN PRN Reason: Wheezing Ascorbic Acid (Ascorbic Acid 250 Mg Tablet) 250 mg PO TID [facility] Last Admin: 04/29/23 09:06 Dose: 250 mg Documented By: ZORAN Atorvastatin Calcium (Atorvastatin Calcium 20 Mg Tablet) 20 mg PO BEDTIME [facility] Last Admin: 04/28/23 21:25 Dose: 20 mg Documented By: ZORAN Ferrous Sulfate (Ferrous Sulfate 300 Mg/5 Ml Liquid) 300 mg PO DAILY [facility] Heparin Sodium (Porcine) (Heparin Sodium,Porcine 5,000 Unit/Ml Vial) 5,000 unit SUBCUT Q12H [facility] Last Admin: 04/29/23 06:03 Dose: 5,000 unit Documented By: ZORAN Hydrocortisone (Hydrocortisone 10 Mg Tablet) 10 mg PO DAILY [facility] Last Admin: 04/29/23 09:06 Dose: 10 mg Documented By: ZORAN Vancomycin HCl 500 mg/ Sodium (Chloride) 110 mls @ 110 mls/hr IV [id number] [facility] Insulin Human Lispro (Insulin Lispro 100 Unit/Ml 3 Ml Vial) 0 unit SUBCUT QIDACHS [facility]; Protocol Last Admin: 04/29/23 12:06 Dose: Not Given Documented By: ZORAN Non-Admin Reason: No Insulin Coverage Midodrine (Midodrine Hcl 10 Mg Tablet) 10 mg PO TID [facility] Last Admin: 04/29/23 09:06 Dose: 10 mg Documented By: ZORAN Multivitamins/Vitamin C (Multivitamin Tablet) 1 tab PO DAILY [facility] Last Admin: 04/29/23 09:06 Dose: 1 tab Documented By: ZORAN Nitroglycerin (Nitroglycerin 0.4 Mg Tab.Subl) 0.4 mg SUBLINGUAL Q5M PRN PRN Reason: Angina Non-Formulary Medication (Ciclesonide [Alvesco]) 2 puff INHALE BID [facility] Omeprazole (Omeprazole 20 Mg Capsule.Dr) 20 mg PO DAILY@0630 [facility] Last Admin: 04/29/23 06:03 Dose: 20 mg Documented By: ZORAN Pharmacy Consult (Consult Rx Vancomycin Dosing) 1 each MISCELLANE DAILY PRN PRN Reason: Consult order Sevelamer Carbonate (Sevelamer Carbonate Powder 800 Mg Powd.Pack) 800 mg PO TID [facility] Thiamine HCl (Thiamine Hcl 100 Mg Tablet) 100 mg PO DAILY [facility] Last Admin: 04/29/23 09:07 Dose: 100 mg Documented By: ZORAN Vitamin D (Cholecalciferol (Vitamin D3) 25 Mcg Tablet) 25 mcg PO DAILY [facility] Last Admin: 04/29/23 09:07 Dose: 25 mcg Documented By: ZORAN Labs 04/29/23 06:02 04/29/23 06:02 Labs: Laboratory Results - last 24 hr 04/28/23 04/28/23 04/29/23 15:50 20:50 06:02 MCV 93.0 MCH 28.0 MCHC 30.2 L RDW 16.5 H Plt Count 156 L D MPV 10.5 Immature Gran % (Auto) 0.7 H Neut % (Auto) 60.5 Lymph % (Auto) 23.8 [place] % (Auto) 10.3 Eos % (Auto) 4.3 H Baso % (Auto) 0.4 Lymph # (Auto) 1.7 [place] # (Auto) 0.7 Eos # (Auto) 0.3 Baso # (Auto) 0.0 Abs Immat Gran (auto) 0.05 H Absolute Neuts (auto) 4.3 Absolute Nucleated RBC 0.000 Nucleated RBC % (auto) 0.0 Anion Gap 19 Estim Creat Clear Calc 10.9 Estimated GFR 8 POC Glucose 115 93 Random Glucose 69 Calcium 9.2 Phosphorus 6.1 H Magnesium 2.1 Albumin 3.9 04/29/23 04/29/23 07:05 11:03 MCV MCH MCHC RDW Plt Count MPV Immature Gran % (Auto) Neut % (Auto) Lymph % (Auto) [place] % (Auto) Eos % (Auto) Baso % (Auto) Lymph # (Auto) [place] # (Auto) Eos # (Auto) Baso # (Auto) Abs Immat Gran (auto) Absolute Neuts (auto) Absolute Nucleated RBC Nucleated RBC % (auto) Anion Gap Estim Creat Clear Calc Estimated GFR POC Glucose 89 103 Random Glucose Calcium Phosphorus Magnesium Albumin Microbiology Microbiology Results: Microbiology 04/24/23 00:32 Blood Culture - Final Blood - Venous No growth after 5 days. Assessment and Plan (1) MRSA bacteremia: Status: Acute Plan 77-year-old gentleman with underlying liver cirrhosis, diabetes, AFib, COPD, PVD, combined systolic and diastolic CHF, end-stage renal disease on hemodialysis MWF, thrombocytopenia admitted on 04/23/2023 with MRSA bacteremia secondary to infected tunneled dialysis catheter. Internal catheter removed. admitted to intensive care unit for pressors and IV Abx. Temporary dialysis catheter placed. MRSA Bacteremia 2/2 Infected Permacath PEnding repeat cultures Continue Vancomycin with dialysis ID following ESRD on HD Nephrology following, MWF Place Permacath once repeated cultures negative Midodrine for low BP Acute on chronic anemia Hb of 7.6 , baseline 8-9 monitor for need of transfusion Type 2 DM diabetic diet SSI DVT PPx Heparin The patient needs overnight stay for IV antibiotics pending Permacath placement and final cultures result Time Spent With Patient Time: Total time managing care of this patient today ____ minutes. Quality Stroke Does the patient have a stroke diagnosis?: No VTE Prior VTE?: No VTE Risk Level:: Medical - moderate - high VTE Device Contraindication: N/A - Device Ordered VTE Drug Contraindication: N/A - Med Ordered
--- NOTE | 2023-04-29 13:32 | PM.PNNEP ---
Subjective Subjective Date of Service: 04/29/23 Interval history: no acute events. Last HD Sunday. Physical Exam Vital Signs: Vital Signs: Last Vital Signs Temp 97.1 F 04/29/23 11:23 Pulse 90 04/29/23 11:23 Resp 20 04/29/23 11:23 BP 125/69 04/29/23 11:23 Pulse Ox 98 04/29/23 11:23 O2 Del Method Nasal Cannula 04/29/23 11:23 O2 Flow Rate 1 04/29/23 11:23 FiO2 30 04/26/23 07:00 BMI result Body Mass Index 28.3 Const: General: awake Orientation/consciousness: patient oriented x3 Resp: Effort & Inspection: normal respiratory effort Auscultation: clear to auscultation bilaterally GI: Palpation (GI): Soft to palpation Neuro: General: patient oriented x3 Extrem: General: Yes edema ( trace bilateral) Objective Data Labs 04/29/23 06:02 04/29/23 06:02 Labs: Laboratory Results - last 24 hr 04/28/23 04/28/23 04/29/23 15:50 20:50 06:02 WBC 7.2 RBC 2.71 L Hgb 7.6 L Hct 25.2 L MCV 93.0 MCH 28.0 MCHC 30.2 L RDW 16.5 H Plt Count 156 L D MPV 10.5 Immature Gran % (Auto) 0.7 H Neut % (Auto) 60.5 Lymph % (Auto) 23.8 [place] % (Auto) 10.3 Eos % (Auto) 4.3 H Baso % (Auto) 0.4 Lymph # (Auto) 1.7 [place] # (Auto) 0.7 Eos # (Auto) 0.3 Baso # (Auto) 0.0 Abs Immat Gran (auto) 0.05 H Absolute Neuts (auto) 4.3 Absolute Nucleated RBC 0.000 Nucleated RBC % (auto) 0.0 Sodium 132 L Potassium 3.5 Chloride 97 Carbon Dioxide 20 L Anion Gap 19 BUN 50 H Creatinine 6.65 H* Estim Creat Clear Calc 10.9 Estimated GFR 8 POC Glucose 115 93 Random Glucose 69 Calcium 9.2 Phosphorus 6.1 H Magnesium 2.1 Albumin 3.9 04/29/23 04/29/23 07:05 11:03 WBC RBC Hgb Hct MCV MCH MCHC RDW Plt Count MPV Immature Gran % (Auto) Neut % (Auto) Lymph % (Auto) [place] % (Auto) Eos % (Auto) Baso % (Auto) Lymph # (Auto) [place] # (Auto) Eos # (Auto) Baso # (Auto) Abs Immat Gran (auto) Absolute Neuts (auto) Absolute Nucleated RBC Nucleated RBC % (auto) Sodium Potassium Chloride Carbon Dioxide Anion Gap BUN Creatinine Estim Creat Clear Calc Estimated GFR POC Glucose 89 103 Random Glucose Calcium Phosphorus Magnesium Albumin Microbiology Microbiology Results: Microbiology 04/24/23 00:32 Blood - Venous Blood Culture - Final No growth after 5 days. 04/25/23 12:29 Blood - Venous Blood Culture - Final Staphylococcus aureus 04/25/23 12:29 Blood - Venous Blood Culture - Preliminary No growth after 48 hours. 04/23/23 11:57 Blood - Venous Blood Culture - Final Staphylococcus aureus 04/23/23 11:26 Blood - Venous Blood Culture - Final Staphylococcus aureus 04/23/23 16:31 Catheter Tip - Other Catheter Tip Culture - Final Methicillin Res Staph Aureus Procedures Date of Service Date of Service: 04/29/23 Assessment & Plan Assessment and plan (1) ESRD (end stage renal disease) on dialysis: Status: Acute Plan 77-year-old gentleman with underlying liver cirrhosis, diabetes, AFib, COPD, PVD, combined systolic and diastolic CHF, end-stage renal disease on hemodialysis Sunday/Sunday/Sunday, thrombocytopenia admitted on 04/23/2023 with MRSA bacteremia secondary to infected tunneled dialysis catheter. Internal catheter explanted. Patient started on pressor support and broad-spectrum antibiotics and admitted to intensive care unit. Temporary dialysis catheter placed. Plan: - iHD next will be on Sunday per MWF schedule - [facility] post HD - [place] will end up being best line for alf Abx - temp line for now, will need permcath replaced once cultures are 48 hours neg. Time Spent With Patient Time: Total time managing care of this patient today ____ minutes. Progress Note: Quality Stroke Does the patient have a stroke diagnosis?: No
[2023-04-29 15:36] VITALS: BP 124/68; PULSE 80; RESP 18; TEMP 36.6; O2SAT 98
[2023-04-29 16:05] LABS: Glucose, Whole Blood 85 mg/dL (60-115)
[2023-04-29] MEDS: Sevelamer Carbonate Powder 800 MG POWD.PACK PO ×2 (17:03→20:04)
[2023-04-29 19:52] VITALS: BP 146/67; PULSE 83; RESP 18; TEMP 37; O2SAT 98
[2023-04-29] MEDS: Atorvastatin Calcium 20 MG TABLET PO (20:04)
[2023-04-29 20:13] LABS: Glucose, Whole Blood 96 mg/dL (60-115)
[2023-04-29 23:23] VITALS: BP 106/63; PULSE 72; RESP 17; TEMP 37.1; O2SAT 92
[2023-04-30 03:17] VITALS: BP 138/66; PULSE 92; RESP 18; TEMP 37.1; O2SAT 90
[2023-04-30 03:46] LABS: HBS Num1 140.58 mIU/mL (0-7.99); HBc Num1 0.29 S/CO (0.00-0.79); HBsAGNum1 0.31 S/CO (0.00-0.99); Hepatitis B Core Antibody Nonreactive (Nonreactive); Hepatitis B Surface Antigen Negative (Negative); ~Hepatitis B Surface Antibody REACTIVE (Nonreactive)
[2023-04-30] MEDS: Omeprazole 20 MG CAPSULE.DR PO (05:48)
--- NOTE | 2023-04-30 06:33 | PC.NURSE ---
pt refused his heparin shot this morning.
[2023-04-30 07:24] LABS: Hematocrit 24.6 % (42.0-52.0); Hemoglobin 7.4 g/dl (14.0-18.0); Mean Corpuscular HGB Conc 30.1 g/dl (31.0-36.0); Mean Corpuscular Hemoglobin 27.8 pg (27.0-33.0); Mean Corpuscular Volume 92.5 fL (80.0-98.0); Mean Platelet Volume 10.3 fL (9.4-12.4); Platelet Count 204 X10*3/uL (160-400); Red Blood Count 2.66 X10*6/uL (4.60-5.80); Red Cell Distribution Width 16.2 % (11.0-16.0); White Blood Count 7.9 X10*3/uL (4.8-10.8)
[2023-04-30 07:30] LABS: Glucose, Whole Blood 64 mg/dL (60-115)
[2023-04-30 07:30] LABS: Glucose, Whole Blood 69 mg/dL (60-115)
[2023-04-30 07:43] VITALS: BP 114/62; PULSE 88; RESP 16; TEMP 36.2; O2SAT 100
[2023-04-30 07:47] LABS: Anion Gap 20 (12-20); Blood Urea Nitrogen 63 mg/dL (9-16); Carbon Dioxide 20 mmol/L (22-29); Chloride 96 mmol/L (96-108); Creatinine Clr Calc Pharmacy 9.3; Estimated Glomerular Filt Rate 7; Glucose Random 71 mg/dL (60-115); Potassium 3.7 mmol/L (3.3-5.1); Sodium 132 mmol/L (135-145)
[2023-04-30] MEDS: Hydrocortisone 10 MG TABLET PO (07:51)
[2023-04-30] MEDS: Ascorbic Acid 250 MG TABLET PO ×2 (07:52→19:59)
[2023-04-30] MEDS: Cholecalciferol (Vitamin D3) 25 MCG TABLET PO (07:52)
[2023-04-30] MEDS: Midodrine HCl 10 MG TABLET PO ×2 (07:52→19:59)
[2023-04-30] MEDS: Multivitamin TABLET 1 TAB PO (07:52)
[2023-04-30] MEDS: Sevelamer Carbonate Powder 800 MG POWD.PACK PO ×2 (07:53→20:01)
[2023-04-30 07:54] LABS: Glucose, Whole Blood 85 mg/dL (60-115)
[2023-04-30] MEDS: Thiamine HCL 100 MG TABLET PO (07:54)
[2023-04-30 08:47] LABS: Iron 56 mcg/dL (45-160); Percent Iron Saturation 25 % (15-50); Total Iron Binding Capacity 224 mcg/dL (228-428); Unsaturated Iron Binding 168 ug/dL
--- NOTE | 2023-04-30 10:53 | P.PNNP_ITS ---
Subjective Subjective Date of Service: 04/30/23 Interval history: Seen on HD. Denied any new complaints; Hemodynamically stable on HD Physical Exam 2 Vital Signs: Vital Signs: Last Vital Signs Temp 97.1 F 04/30/23 07:43 Pulse 88 04/30/23 07:43 Resp 16 04/30/23 07:43 BP 114/62 04/30/23 07:43 Pulse Ox 100 04/30/23 07:43 O2 Del Method Nasal Cannula 04/30/23 07:43 O2 Flow Rate 3 04/30/23 07:43 FiO2 30 04/26/23 07:00 BMI result Body Mass Index 28.3 Const: General: no acute distress Orientation/consciousness: patient oriented x3 Eyes: EOM: EOMs intact bilaterally Resp: Auscultation: diminished lung sounds Cardio: Rate: regular rate GI: Palpation (GI): Soft to palpation Neuro: General: patient oriented x3 Objective Data Labs 04/30/23 06:34 04/30/23 06:34 Labs: Laboratory Results - last 24 hr 04/28/23 04/29/23 04/29/23 08:55 11:03 15:35 WBC RBC Hgb Hct MCV MCH MCHC RDW Plt Count MPV Absolute Nucleated RBC Nucleated RBC % (auto) Sodium Potassium Chloride Carbon Dioxide Anion Gap BUN Creatinine Estim Creat Clear Calc Estimated GFR POC Glucose 103 85 Random Glucose Calcium Iron TIBC % Saturation Unsat Iron Binding Hep Bs Antigen Negative Hep Bs Antibody REACTIVE Hep B Core Total Ab Nonreactive 04/29/23 04/30/23 04/30/23 19:53 06:34 07:17 WBC 7.9 RBC 2.66 L Hgb 7.4 L Hct 24.6 L MCV 92.5 MCH 27.8 MCHC 30.1 L RDW 16.2 H Plt Count 204 D MPV 10.3 Absolute Nucleated RBC 0.000 Nucleated RBC % (auto) 0.0 Sodium 132 L Potassium 3.7 Chloride 96 Carbon Dioxide 20 L Anion Gap 20 BUN 63 H Creatinine 7.82 H* Estim Creat Clear Calc 9.3 Estimated GFR 7 POC Glucose 96 64 Random Glucose 71 Calcium 9.0 Iron 56 TIBC 224 L % Saturation 25 Unsat Iron Binding 168 Hep Bs Antigen Hep Bs Antibody Hep B Core Total Ab 04/30/23 04/30/23 07:26 07:50 WBC RBC Hgb Hct MCV MCH MCHC RDW Plt Count MPV Absolute Nucleated RBC Nucleated RBC % (auto) Sodium Potassium Chloride Carbon Dioxide Anion Gap BUN Creatinine Estim Creat Clear Calc Estimated GFR POC Glucose 69 85 Random Glucose Calcium Iron TIBC % Saturation Unsat Iron Binding Hep Bs Antigen Hep Bs Antibody Hep B Core Total Ab Microbiology Microbiology Results: Microbiology 04/28/23 12:06 Blood - Venous Blood Culture - Preliminary No growth after 24 hours. 04/28/23 12:15 Blood - Venous Blood Culture - Preliminary No growth after 24 hours. 04/24/23 00:32 Blood - Venous Blood Culture - Final No growth after 5 days. 04/25/23 12:29 Blood - Venous Blood Culture - Final Staphylococcus aureus 04/25/23 12:29 Blood - Venous Blood Culture - Preliminary No growth after 48 hours. 04/23/23 11:57 Blood - Venous Blood Culture - Final Staphylococcus aureus 04/23/23 11:26 Blood - Venous Blood Culture - Final Staphylococcus aureus 04/23/23 16:31 Catheter Tip - Other Catheter Tip Culture - Final Methicillin Res Staph Aureus Procedures Date of Service Date of Service: 04/30/23 Assessment & Plan Assessment and plan (1) ESRD (end stage renal disease) on dialysis: Status: Acute Assessment and Plan: 77-year-old gentleman with underlying liver cirrhosis, diabetes, AFib, COPD, PVD, combined systolic and diastolic CHF, end-stage renal disease on hemodialysis Sunday/Sunday/Sunday, thrombocytopenia admitted on 04/23/2023 with MRSA bacteremia secondary to infected tunneled dialysis catheter. Internal catheter explanted. Patient started on pressor support and broad-spectrum antibiotics and admitted to intensive care unit. Temporary dialysis catheter placed. - Seen on HD - iHD as per F schedule - [facility] post HD - [place] will end up being best line for skilled nursing Abx - temp line for now, will need permcath replaced once cultures are 48 hours neg - C/W rest of current management for now. Progress Note: Quality Stroke Does the patient have a stroke diagnosis?: No
[2023-04-30 11:14] LABS: Glucose, Whole Blood 99 mg/dL (60-115)
--- NOTE | 2023-04-30 13:54 | MHC.CM.PN ---
Per rounds patient is awaiting a permanent dialysis catheter, potentially will be ready for discharge tomorrow.
--- NOTE | 2023-04-30 15:43 | P.PNIM_ITS ---
Subjective Subjective Date of Service: 04/30/23 Interval History: Seen and evaluated this morning comfortable, denies any fever or chills On 2L O2 No other overnight events Review of Systems Review of Systems: Yes all other systems are reviewed and are negative Physical Exam 2 Vital Signs: Vital Signs: Last Vital Signs Temp 97.1 F 04/30/23 07:43 Pulse 88 04/30/23 07:43 Resp 16 04/30/23 07:43 BP 114/62 04/30/23 07:43 Pulse Ox 100 04/30/23 07:43 O2 Del Method Nasal Cannula 04/30/23 07:43 O2 Flow Rate 3 04/30/23 07:43 FiO2 30 04/26/23 07:00 BMI result Body Mass Index 28.3 Const: Other: Constitutional : Awake, interactive, not in distress Neck : Normal inspection, Supple, Dialysis catheter in place Cardiovascular : RRR, no JVP, no lower extremity edema Respiratory : good bilateral air entry, no crackles, wheezes or rhonchi, on O2 supplement Gastrointestinal: soft, lax, Normal bowel sounds, Non tender Skin : Warm, Dry, site of permacath clean with no erythema or drainage Neurological : Alert & oriented x3, No focal deficit Objective Data Active Medications Albuterol Sulfate (Albuterol Sulfate 90 Mcg 8 Gm Inhaler) 1 puff INHALE Q6H PRN PRN Reason: Wheezing Ascorbic Acid (Ascorbic Acid 250 Mg Tablet) 250 mg PO TID [facility] Last Admin: 04/30/23 15:33 Dose: Not Given Documented By: ZORAN Non-Admin Reason: Patient Refused Atorvastatin Calcium (Atorvastatin Calcium 20 Mg Tablet) 20 mg PO BEDTIME [facility] Last Admin: 04/29/23 20:04 Dose: 20 mg Documented By: JOSE Ferrous Sulfate (Ferrous Sulfate 300 Mg/5 Ml Liquid) 300 mg PO DAILY [facility] Last Admin: 04/30/23 13:51 Dose: Not Given Documented By: ZORAN Non-Admin Reason: Not In Room Heparin Sodium (Porcine) (Heparin Sodium,Porcine 5,000 Unit/Ml Vial) 5,000 unit SUBCUT Q12H [facility] Last Admin: 04/30/23 05:52 Dose: Not Given Documented By: JOSE Non-Admin Reason: Patient Refused Hydrocortisone (Hydrocortisone 10 Mg Tablet) 10 mg PO DAILY [facility] Last Admin: 04/30/23 07:51 Dose: 10 mg Documented By: ZORAN Vancomycin HCl 500 mg/ Sodium (Chloride) 110 mls @ 110 mls/hr IV [id number] [facility] Insulin Human Lispro (Insulin Lispro 100 Unit/Ml 3 Ml Vial) 0 unit SUBCUT QIDACHS [facility]; Protocol Last Admin: 04/30/23 11:13 Dose: Not Given Documented By: ZORAN Non-Admin Reason: No Insulin Coverage Midodrine (Midodrine Hcl 10 Mg Tablet) 10 mg PO TID [facility] Last Admin: 04/30/23 15:33 Dose: Not Given Documented By: ZORAN Non-Admin Reason: Patient Refused Multivitamins/Vitamin C (Multivitamin Tablet) 1 tab PO DAILY [facility] Last Admin: 04/30/23 07:52 Dose: 1 tab Documented By: ZORAN Nitroglycerin (Nitroglycerin 0.4 Mg Tab.Subl) 0.4 mg SUBLINGUAL Q5M PRN PRN Reason: Angina Non-Formulary Medication (Ciclesonide [Alvesco]) 2 puff INHALE BID [facility] Omeprazole (Omeprazole 20 Mg Capsule.Dr) 20 mg PO DAILY@0630 [facility] Last Admin: 04/30/23 05:48 Dose: 20 mg Documented By: JOSE Pharmacy Consult (Consult Rx Vancomycin Dosing) 1 each MISCELLANE DAILY PRN PRN Reason: Consult order Sevelamer Carbonate (Sevelamer Carbonate Powder 800 Mg Powd.Pack) 800 mg PO TID [facility] Last Admin: 04/30/23 15:33 Dose: Not Given Documented By: ZORAN Non-Admin Reason: Patient Refused Thiamine HCl (Thiamine Hcl 100 Mg Tablet) 100 mg PO DAILY [facility] Last Admin: 04/30/23 07:54 Dose: 100 mg Documented By: ZORAN Vitamin D (Cholecalciferol (Vitamin D3) 25 Mcg Tablet) 25 mcg PO DAILY [facility] Last Admin: 04/30/23 07:52 Dose: 25 mcg Documented By: ZORAN Labs 04/30/23 06:34 04/30/23 06:34 Labs: Laboratory Results - last 24 hr 04/28/23 04/29/23 04/29/23 08:55 15:35 19:53 MCV MCH MCHC RDW Plt Count MPV Absolute Nucleated RBC Nucleated RBC % (auto) Anion Gap Estim Creat Clear Calc Estimated GFR POC Glucose 85 96 Random Glucose Calcium Iron TIBC % Saturation Unsat Iron Binding Hep Bs Antigen Negative Hep Bs Antibody REACTIVE Hep B Core Total Ab Nonreactive 04/30/23 04/30/23 04/30/23 06:34 07:17 07:26 MCV 92.5 MCH 27.8 MCHC 30.1 L RDW 16.2 H Plt Count 204 D MPV 10.3 Absolute Nucleated RBC 0.000 Nucleated RBC % (auto) 0.0 Anion Gap 20 Estim Creat Clear Calc 9.3 Estimated GFR 7 POC Glucose 64 69 Random Glucose 71 Calcium 9.0 Iron 56 TIBC 224 L % Saturation 25 Unsat Iron Binding 168 Hep Bs Antigen Hep Bs Antibody Hep B Core Total Ab 04/30/23 04/30/23 07:50 11:04 MCV MCH MCHC RDW Plt Count MPV Absolute Nucleated RBC Nucleated RBC % (auto) Anion Gap Estim Creat Clear Calc Estimated GFR POC Glucose 85 99 Random Glucose Calcium Iron TIBC % Saturation Unsat Iron Binding Hep Bs Antigen Hep Bs Antibody Hep B Core Total Ab Microbiology Microbiology Results: Microbiology 04/25/23 12:29 Blood Culture - Final Blood - Venous No growth after 5 days. 04/28/23 12:15 Blood Culture - Preliminary Blood - Venous No growth after 48 hours. 04/28/23 12:06 Blood Culture - Preliminary Blood - Venous No growth after 48 hours. Assessment and Plan (1) MRSA bacteremia: Status: Acute (2) ESRD (end stage renal disease) on dialysis: Status: Acute Plan 77-year-old gentleman with underlying liver cirrhosis, diabetes, AFib, COPD, PVD, combined systolic and diastolic CHF, end-stage renal disease on hemodialysis MWF, thrombocytopenia admitted on 04/23/2023 with MRSA bacteremia secondary to infected tunneled dialysis catheter. Internal catheter removed. admitted to intensive care unit for pressors and IV Abx. Temporary dialysis catheter placed. MRSA Bacteremia 2/2 Infected Permacath repeat cultures negative Continue Vancomycin with dialysis ID following ESRD on HD Nephrology following, MWF Place Permacath tomorrow Midodrine for low BP Acute on chronic anemia Hb of 7.4 , baseline 8-9 PO iron Nephro to give PATRICK monitor for need of transfusion Type 2 DM diabetic diet SSI DVT PPx Heparin The patient needs overnight stay for IV antibiotics pending Permacath placement Time Spent With Patient Time: Total time managing care of this patient today ____ minutes. Quality Stroke Does the patient have a stroke diagnosis?: No VTE Prior VTE?: No VTE Risk Level:: Medical - moderate - high VTE Device Contraindication: N/A - Device Ordered VTE Drug Contraindication: N/A - Med Ordered
[2023-04-30 15:47] VITALS: BP 116/71; PULSE 76; RESP 18; TEMP 37; O2SAT 96
--- NOTE | 2023-04-30 16:16 | W.PM.IDCN ---
History of Present Illness Data of Consult Service Date: 04/30/23 Requesting physician: Holly Szymanski Primary Care Provider: ALEXANDRE NOVAK Reason for consult: MRSA bacteremia He presents with weakness and confusion found by his transport team when he was going to dialysis. He has staph aureus blood and MRSA from cath tip. He is less confused. He is getting permacath tomorrow and blood cultures cleared. Review of Systems Review of Systems: Yes all other systems are reviewed and are negative [facility] Past Medical History Medical History Chronic combined systolic (congestive) and diastolic (congestive) heart failure Dysphagia, oral phase Unspecified intellectual disabilities Impulse disorder, unspecified Restlessness and agitation Personal history of pulmonary embolism Diabetes mellitus due to underlying condition without complications Tachycardia, unspecified Postcholecystectomy syndrome Acute cholecystitis with chronic cholecystitis Need for assistance with personal care Muscle weakness (generalized) Edema, unspecified Shortness of breath Personal history of nicotine dependence Unspecified amblyopia, right eye Personal history of diseases of the skin and subcutaneous tissue Hypoxemia Other intermediate frame tender (current) drug therapy Personal history of other diseases of the musculoskeletal system and connective tissue Gastro-esophageal 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 esophagitis termite treater (current) use of anticoagulants Chest pain, unspecified Unspecified osteoarthritis, unspecified site Obesity, unspecified Constipation, unspecified Exhibitionism Personal history of COVID-19 Other specified hearing loss, bilateral Unspecified asthma, uncomplicated Other ascites Type 2 diabetes mellitus with diabetic chronic kidney disease Thrombocytopenia, unspecified Hypomagnesemia Non-ST elevation (NSTEMI) myocardial infarction Vitamin D deficiency, unspecified Fluid overload, unspecified Atherosclerotic heart disease of [place] coronary artery without angina pectoris Unspecified severe protein-calorie malnutrition Acute respiratory failure with hypoxia Encounter for adjustment and management of vascular access device Dependence on renal dialysis Other disorders of phosphorus metabolism Hypo-osmolality and hyponatremia Nutritional deficiency, unspecified Orthostatic hypotension Thiamine deficiency, unspecified Venous insufficiency (chronic) (peripheral) Heart failure, unspecified Antisocial personality disorder Chronic obstructive pulmonary disease, unspecified Unspecified cirrhosis of liver Hyperlipidemia, unspecified Iron deficiency anemia, unspecified Chronic atrial fibrillation, unspecified Type 2 diabetes mellitus with diabetic neuropathy, unspecified End stage renal disease Family History Family history: reviewed and not pertinent Surgical History Surgical History Cataract extraction status of right eye Cataract extraction status, left eye Social History Social History Housing: Residential Alcohol intake: never Patient Tobacco Use Status: Former Tobacco user Tobacco use type: Pipe service: No Meds Allergies Allergy/AdvReac Type Severity Reaction Status Date / Time No Known Allergies Allergy Verified 04/23/23 11:10 Active Medications: Current Medications Albuterol Sulfate (Albuterol Sulfate 90 Mcg 8 Gm Inhaler) 1 puff INHALE Q6H PRN PRN Reason: Wheezing Ascorbic Acid (Ascorbic Acid 250 Mg Tablet) 250 mg PO TID REPLACED BY [facility] Last Admin: 04/30/23 15:33 Dose: Not Given Atorvastatin Calcium (Atorvastatin Calcium 20 Mg Tablet) 20 mg PO BEDTIME REPLACED BY [facility] Last Admin: 04/29/23 20:04 Dose: 20 mg Ferrous Sulfate (Ferrous Sulfate 300 Mg/5 Ml Liquid) 300 mg PO DAILY REPLACED BY [facility] Last Admin: 04/30/23 13:51 Dose: Not Given Heparin Sodium (Porcine) (Heparin Sodium,Porcine 5,000 Unit/Ml Vial) 5,000 unit SUBCUT Q12H REPLACED BY [facility] Last Admin: 04/30/23 05:52 Dose: Not Given Hydrocortisone (Hydrocortisone 10 Mg Tablet) 10 mg PO DAILY REPLACED BY [facility] Last Admin: 04/30/23 07:51 Dose: 10 mg Vancomycin HCl 500 mg/ Sodium (Chloride) 110 mls @ 110 mls/hr IV [id number]@[id number] REPLACED BY [facility] Insulin Human Lispro (Insulin Lispro 100 Unit/Ml 3 Ml Vial) 0 unit SUBCUT QIDACHS REPLACED BY [facility]; Protocol Last Admin: 04/30/23 11:13 Dose: Not Given Midodrine (Midodrine Hcl 10 Mg Tablet) 10 mg PO TID REPLACED BY [facility] Last Admin: 04/30/23 15:33 Dose: Not Given Multivitamins/Vitamin C (Multivitamin Tablet) 1 tab PO DAILY REPLACED BY [facility] Last Admin: 04/30/23 07:52 Dose: 1 tab Nitroglycerin (Nitroglycerin 0.4 Mg Tab.Subl) 0.4 mg SUBLINGUAL Q5M PRN PRN Reason: Angina Non-Formulary Medication (Ciclesonide [Alvesco]) 2 puff INHALE BID REPLACED BY [facility] Omeprazole (Omeprazole 20 Mg Capsule.Dr) 20 mg PO DAILY@0630 REPLACED BY [facility] Last Admin: 04/30/23 05:48 Dose: 20 mg Pharmacy Consult (Consult Rx Vancomycin Dosing) 1 each MISCELLANE DAILY PRN PRN Reason: Consult order Sevelamer Carbonate (Sevelamer Carbonate Powder 800 Mg Powd.Pack) 800 mg PO TID REPLACED BY [facility] Last Admin: 04/30/23 15:33 Dose: Not Given Thiamine HCl (Thiamine Hcl 100 Mg Tablet) 100 mg PO DAILY REPLACED BY [facility] Last Admin: 04/30/23 07:54 Dose: 100 mg Vitamin D (Cholecalciferol (Vitamin D3) 25 Mcg Tablet) 25 mcg PO DAILY REPLACED BY [facility] Last Admin: 04/30/23 07:52 Dose: 25 mcg Home Medications Medication Instructions Recorded Confirmed Last Taken Type acetaminophen 325 mg tablet 650 mg PO Q8H PRN Pain 04/23/23 04/23/23 Unknown History albuterol sulfate 90 mcg/actuation 1 puff inhalation Q6H PRN Wheezing 04/23/23 04/23/23 Unknown History aerosol inhaler apixaban 2.5 mg tablet (Eliquis) 2.5 mg PO BID 04/23/23 04/23/23 Unknown History ascorbic acid (vitamin C) 250 mg 250 mg PO TID 04/23/23 04/23/23 Unknown History tablet atorvastatin 20 mg tablet 20 mg PO BEDTIME 04/23/23 04/23/23 Unknown History cholecalciferol (vitamin D3) 25 25 mcg PO DAILY 04/23/23 04/23/23 Unknown History mcg (1,000 unit) tablet ciclesonide 80 mcg/actuation 2 puff inhalation BID 04/23/23 04/23/23 Unknown History aerosol inhaler (Alvesco) ferrous sulfate 324 mg (65 mg 324 mg PO DAILY 04/23/23 04/23/23 Unknown History iron) tablet,delayed release hydrocortisone 5 mg tablet 5 mg PO DAILY 04/23/23 04/23/23 Unknown History midodrine 5 mg tablet 5 mg PO TID 04/23/23 04/23/23 Unknown History nitroglycerin 0.4 mg sublingual 0.4 mg sublingual Q5M PRN Angina 04/23/23 04/23/23 Unknown History tablet pantoprazole 40 mg tablet,delayed 40 mg PO DAILY@0630 04/23/23 04/23/23 Unknown History release sevelamer carbonate 800 mg tablet 800 mg PO TID 04/23/23 04/23/23 Unknown History (Renvela) thiamine HCl (vitamin B1) 100 mg 100 mg PO DAILY 04/23/23 04/23/23 Unknown History tablet vitamin B complex 1 cap PO DAILY 04/23/23 04/23/23 Unknown History Physical Exam Vital Signs: Vital Signs: Last Vital Signs Temp 98.6 F 04/30/23 15:47 Pulse 76 04/30/23 15:47 Resp 18 04/30/23 15:47 BP 116/71 04/30/23 15:47 Pulse Ox 96 04/30/23 15:47 O2 Del Method Nasal Cannula 04/30/23 15:47 O2 Flow Rate 2 04/30/23 15:47 FiO2 30 04/26/23 07:00 BMI result Body Mass Index 28.3 Const: General: cooperative HEENT: Head: Yes normal to inspection Face and sinus: Yes normal facial exam Mouth: Normal oral and palatal mucosa present Teeth and gingiva: dentition normal Eyes: General: appearance normal, both eyes and all related structures Pupils: Equal, round and reactive pupils present Resp: Effort & Inspection: normal respiratory effort Cardio: Rate: regular rate Rhythm: regular rhythm GI: Palpation (GI): Soft to palpation and nontender : General: Yes no CVA tenderness Back/Spine/Pelvis: Back: no CVA tenderness Skin: Other: no cellulitis around prior cath site General skin exam: no rashes or lesions noted Neuro: General: moves all extremities Cranial nerves: Yes Equal, round and reactive pupils present Extrem: General: Yes normal to inspection Psych: Appearance: grossly normal Results Labs 04/30/23 06:34 04/30/23 06:34 Labs: Short CBC 04/30/23 Range/Units 06:34 WBC 7.9 (4.8-10.8) X10*3/uL Hgb 7.4 L (14.0-18.0) g/dl Hct 24.6 L (42.0-52.0) % Plt Count 204 D (160-400) X10*3/uL BMP 04/30/23 06:34 Sodium 132 L Potassium 3.7 Chloride 96 Carbon Dioxide 20 L BUN 63 H Creatinine 7.82 H* Calcium 9.0 Microbiology Microbiology Results: Microbiology 04/25/23 12:29 Blood - Venous Blood Culture - Final No growth after 5 days. 04/28/23 12:15 Blood - Venous Blood Culture - Preliminary No growth after 48 hours. 04/28/23 12:06 Blood - Venous Blood Culture - Preliminary No growth after 48 hours. 04/24/23 00:32 Blood - Venous Blood Culture - Final No growth after 5 days. 04/25/23 12:29 Blood - Venous Blood Culture - Final Staphylococcus aureus 04/23/23 11:57 Blood - Venous Blood Culture - Final Staphylococcus aureus 04/23/23 11:26 Blood - Venous Blood Culture - Final Staphylococcus aureus 04/23/23 16:31 Catheter Tip - Other Catheter Tip Culture - Final Methicillin Res Staph Aureus Assessment and Plan (1) MRSA bacteremia: Status: Acute (2) Infection associated with silicone tunneled cuffed peritoneal dialysis catheter: Status: Acute Plan He has permacath associated infection concern. He has MRSA now cleared Would plan IV Vancomycin at dialysis for four weeks. New line. Time Spent With Patient Time: Total time managing care of this patient today ____ minutes.
[2023-04-30 16:38] LABS: Glucose, Whole Blood 92 mg/dL (60-115)
[2023-04-30] MEDS: Heparin Sodium,Porcine 5,000 UNIT/ML VIAL 5000 UNIT SUBCUT (17:23)
[2023-04-30 19:04] LABS: Vancomycin Random 12.1 mcg/mL (15-20)
[2023-04-30 19:23] VITALS: BP 122/59; PULSE 68; RESP 17; TEMP 36.1; O2SAT 99
[2023-04-30] MEDS: vancomycin HCL 500 MG in 0.9 % Sodium Chloride 100 ML 110 MG IV (19:55)
[2023-04-30] MEDS: Atorvastatin Calcium 20 MG TABLET PO (20:00)
[2023-05-01] VITALS (10 sets, daily range): BP systolic 111–134; BP diastolic 59–74; PULSE 58–108; RESP 15–20; TEMP 36.1–36.6; O2SAT 90–99
[2023-05-01] MEDS: Heparin Sodium,Porcine 5,000 UNIT/ML VIAL 5000 UNIT SUBCUT ×2 (04:05→17:32)
[2023-05-01] MEDS: Omeprazole 20 MG CAPSULE.DR PO (05:52)
--- NOTE | 2023-05-01 06:31 | PC.NURSE ---
Assumed care of pt at 19:00 (on 04/30). A&Ox1 to self only. Impulsive, frequently pulling off nc and clinical research monitor. Pt does not use call zamora, yells into [facility]itchard to make needs known. Frequent attempts made to reorient and redirect. Pt confused and verbally aggressive, inappropriate towards staff at times. Pt refused much of care including biophysical assessment, HS POC (insulin held), and morning labs. Covering Dr. Rodriguez notified of pt's refusal and resistance to care. Bed alarm and in-room camera in place for pt safety.
[2023-05-01 09:07] LABS: Glucose, Whole Blood 78 mg/dL (60-115)
[2023-05-01] MEDS: Midodrine HCl 10 MG TABLET PO ×2 (10:02→16:26)
[2023-05-01 10:09] LABS: Hematocrit 24.1 % (42.0-52.0); Hemoglobin 7.4 g/dl (14.0-18.0); Mean Corpuscular HGB Conc 30.7 g/dl (31.0-36.0); Mean Corpuscular Hemoglobin 27.9 pg (27.0-33.0); Mean Corpuscular Volume 90.9 fL (80.0-98.0); Mean Platelet Volume 9.7 fL (9.4-12.4); Platelet Count 188 X10*3/uL (160-400); Red Blood Count 2.65 X10*6/uL (4.60-5.80); Red Cell Distribution Width 16.2 % (11.0-16.0); White Blood Count 6.9 X10*3/uL (4.8-10.8)
--- NOTE | 2023-05-01 10:54 | P.PNNP_ITS ---
Subjective Subjective Date of Service: 05/01/23 Interval history: Events noted; All recent data reviewed; D/W Med Attending; Going for [facility] today Physical Exam 2 Vital Signs: Vital Signs: Last Vital Signs Temp 97.4 F 05/01/23 08:59 Pulse 85 05/01/23 08:59 Resp 16 05/01/23 08:59 BP 121/59 L 05/01/23 08:59 Pulse Ox 90 L 05/01/23 08:59 O2 Del Method Nasal Cannula 05/01/23 08:59 O2 Flow Rate 2 05/01/23 08:59 FiO2 30 04/26/23 07:00 BMI result Body Mass Index 28.3 Const: General: no acute distress Eyes: EOM: EOMs intact bilaterally Resp: Auscultation: diminished lung sounds Cardio: Rate: regular rate GI: Palpation (GI): Soft to palpation Neuro: General: moves all extremities Objective Data Labs 05/01/23 09:21 04/30/23 06:34 Labs: Laboratory Results - last 24 hr 04/30/23 04/30/23 04/30/23 11:04 16:31 18:08 WBC RBC Hgb Hct MCV MCH MCHC RDW Plt Count MPV Absolute Nucleated RBC Nucleated RBC % (auto) POC Glucose 99 92 Hold Green Top Random Vancomycin 12.1 L 05/01/23 05/01/23 09:04 09:21 WBC 6.9 RBC 2.65 L Hgb 7.4 L Hct 24.1 L MCV 90.9 MCH 27.9 MCHC 30.7 L RDW 16.2 H Plt Count 188 MPV 9.7 Absolute Nucleated RBC 0.000 Nucleated RBC % (auto) 0.0 POC Glucose 78 Hold Green Top See Note Random Vancomycin Microbiology Microbiology Results: Microbiology 04/25/23 12:29 Blood - Venous Blood Culture - Final No growth after 5 days. 04/28/23 12:15 Blood - Venous Blood Culture - Preliminary No growth after 48 hours. 04/28/23 12:06 Blood - Venous Blood Culture - Preliminary No growth after 48 hours. 04/24/23 00:32 Blood - Venous Blood Culture - Final No growth after 5 days. 04/25/23 12:29 Blood - Venous Blood Culture - Final Staphylococcus aureus 04/23/23 11:57 Blood - Venous Blood Culture - Final Staphylococcus aureus 04/23/23 11:26 Blood - Venous Blood Culture - Final Staphylococcus aureus 04/23/23 16:31 Catheter Tip - Other Catheter Tip Culture - Final Methicillin Res Staph Aureus Procedures Date of Service Date of Service: 05/01/23 Assessment & Plan Assessment and plan (1) ESRD (end stage renal disease) on dialysis: Status: Acute Assessment and Plan: 77-year-old gentleman with underlying liver cirrhosis, diabetes, AFib, COPD, PVD, combined systolic and diastolic CHF, end-stage renal disease on hemodialysis Sunday/Sunday/Sunday, thrombocytopenia admitted on 04/23/2023 with MRSA bacteremia secondary to infected tunneled dialysis catheter. Internal catheter explanted. Patient was started on pressor support and broad-spectrum antibiotics and admitted to intensive care unit. Temporary dialysis catheter placed. - Permcath today - iHD as per F schedule - Vanco post HD - If getting PRBC, can get it on HD tomorrow - C/W rest of current management for now. Progress Note: Quality Stroke Does the patient have a stroke diagnosis?: No
--- NOTE | 2023-05-01 11:38 | MHC.CM.PN ---
EMR REVIEWED, ANTIC RETURN TO [facility] IN 1-2 DAYS PENDING PERMACATH PLACEMENT, PT WILL ALSO NEED 4WKS IV VANCO AT OUTPT HD, [facility], CM WILL CONT TO FOLLOW D/C NEEDS.
--- NOTE | 2023-05-01 11:53 | HO.PM.IMPN ---
Subjective Subjective Date of Service: 05/01/23 Interval History: Seen and evaluated this morning comfortable, denies any fever or chills On 2L O2 No other overnight events Review of Systems Review of Systems: Yes all other systems are reviewed and are negative Physical Exam Vital Signs: Vital Signs: Last Vital Signs Temp 97.4 F 05/01/23 08:59 Pulse 85 05/01/23 08:59 Resp 16 05/01/23 08:59 BP 121/59 L 05/01/23 08:59 Pulse Ox 90 L 05/01/23 08:59 O2 Del Method Nasal Cannula 05/01/23 08:59 O2 Flow Rate 2 05/01/23 08:59 FiO2 30 04/26/23 07:00 BMI result Body Mass Index 28.3 Const: Other: Constitutional : Awake, interactive, not in distress Neck : Normal inspection, Supple, Dialysis catheter in place Cardiovascular : RRR, no JVP, no lower extremity edema Respiratory : good bilateral air entry, no crackles, wheezes or rhonchi, on O2 supplement Gastrointestinal: soft, lax, Normal bowel sounds, Non tender Skin : Warm, Dry, site of permacath clean with no erythema or drainage Neurological : Alert & oriented x3, No focal deficit Objective Data Active Medications Albuterol Sulfate (Albuterol Sulfate 90 Mcg 8 Gm Inhaler) 1 puff INHALE Q6H PRN PRN Reason: Wheezing Ascorbic Acid (Ascorbic Acid 250 Mg Tablet) 250 mg PO TID [facility] Last Admin: 05/01/23 10:23 Dose: Not Given Documented By: CARLOS Non-Admin Reason: NPO Atorvastatin Calcium (Atorvastatin Calcium 20 Mg Tablet) 20 mg PO BEDTIME [facility] Last Admin: 04/30/23 20:00 Dose: 20 mg Documented By: ROSLYN Ferrous Sulfate (Ferrous Sulfate 300 Mg/5 Ml Liquid) 300 mg PO DAILY [facility] Last Admin: 05/01/23 10:23 Dose: Not Given Documented By: CARLOS Non-Admin Reason: NPO Heparin Sodium (Porcine) (Heparin Sodium,Porcine 5,000 Unit/Ml Vial) 5,000 unit SUBCUT Q12H [facility] Last Admin: 05/01/23 04:05 Dose: 5,000 unit Documented By: ROSLYN Hydrocortisone (Hydrocortisone 10 Mg Tablet) 10 mg PO DAILY [facility] Last Admin: 05/01/23 10:24 Dose: Not Given Documented By: CARLOS Non-Admin Reason: NPO Vancomycin HCl 500 mg/ Sodium (Chloride) 110 mls @ 110 mls/hr IV [id number] [facility] Insulin Human Lispro (Insulin Lispro 100 Unit/Ml 3 Ml Vial) 0 unit SUBCUT QIDACHS [facility]; Protocol Last Admin: 05/01/23 11:49 Dose: Not Given Documented By: CHRISTINE Non-Admin Reason: Off Unit: Surgery Midodrine (Midodrine Hcl 10 Mg Tablet) 10 mg PO TID [facility] Last Admin: 05/01/23 10:02 Dose: 10 mg Documented By: CARLOS Multivitamins/Vitamin C (Multivitamin Tablet) 1 tab PO DAILY [facility] Last Admin: 05/01/23 10:24 Dose: Not Given Documented By: CARLOS Non-Admin Reason: NPO Nitroglycerin (Nitroglycerin 0.4 Mg Tab.Subl) 0.4 mg SUBLINGUAL Q5M PRN PRN Reason: Angina Non-Formulary Medication (Ciclesonide [Alvesco]) 2 puff INHALE BID [facility] Omeprazole (Omeprazole 20 Mg Capsule.Dr) 20 mg PO DAILY@0630 [facility] Last Admin: 05/01/23 05:52 Dose: 20 mg Documented By: ROSLYN Pharmacy Consult (Consult Rx Vancomycin Dosing) 1 each MISCELLANE DAILY PRN PRN Reason: Consult order Sevelamer Carbonate (Sevelamer Carbonate Powder 800 Mg Powd.Pack) 800 mg PO TID [facility] Last Admin: 05/01/23 09:35 Dose: Not Given Documented By: CARLOS Non-Admin Reason: NPO Thiamine HCl (Thiamine Hcl 100 Mg Tablet) 100 mg PO DAILY [facility] Last Admin: 05/01/23 10:24 Dose: Not Given Documented By: CARLOS Non-Admin Reason: NPO Vitamin D (Cholecalciferol (Vitamin D3) 25 Mcg Tablet) 25 mcg PO DAILY [facility] Last Admin: 05/01/23 10:23 Dose: Not Given Documented By: CARLOS Non-Admin Reason: NPO Labs 05/01/23 09:21 04/30/23 06:34 Labs: Laboratory Results - last 24 hr 04/30/23 04/30/23 05/01/23 16:31 18:08 09:04 MCV MCH MCHC RDW Plt Count MPV Absolute Nucleated RBC Nucleated RBC % (auto) POC Glucose 92 78 Hold Green Top Random Vancomycin 12.1 L 05/01/23 09:21 MCV 90.9 MCH 27.9 MCHC 30.7 L RDW 16.2 H Plt Count 188 MPV 9.7 Absolute Nucleated RBC 0.000 Nucleated RBC % (auto) 0.0 POC Glucose Hold Green Top See Note Random Vancomycin Microbiology Microbiology Results: Microbiology 04/25/23 12:29 Blood Culture - Final Blood - Venous No growth after 5 days. 04/28/23 12:15 Blood Culture - Preliminary Blood - Venous No growth after 48 hours. 04/28/23 12:06 Blood Culture - Preliminary Blood - Venous No growth after 48 hours. Assessment and Plan (1) MRSA bacteremia: Status: Acute Plan 77-year-old gentleman with underlying liver cirrhosis, diabetes, AFib, COPD, PVD, combined systolic and diastolic CHF, end-stage renal disease on hemodialysis MWF, thrombocytopenia admitted on 04/23/2023 with MRSA bacteremia secondary to infected tunneled dialysis catheter. Internal catheter removed. admitted to intensive care unit for pressors and IV Abx. Temporary dialysis catheter placed. MRSA Bacteremia 2/2 Infected Permacath repeat cultures negative Continue Vancomycin with dialysis for 4 weeks (Finishes 05/26) ID following ESRD on HD Nephrology following, MWF Place Permacath today, plan for dialysis tomorrow Midodrine for low BP Acute on chronic anemia Hb of 7.4 PO iron Nephro to give PATRICK To give 1 unit of blood with dialysis tomorrow Type 2 DM diabetic diet SSI DVT PPx Heparin The patient needs overnight stay for IV antibiotics pending Permacath placement Time Spent With Patient Time: Total time managing care of this patient today ____ minutes. Quality Stroke Does the patient have a stroke diagnosis?: No VTE Prior VTE?: No VTE Risk Level:: Medical - moderate - high VTE Device Contraindication: N/A - Device Ordered VTE Drug Contraindication: N/A - Med Ordered
[2023-05-01] MEDS: Ascorbic Acid 250 MG TABLET PO ×2 (16:26→20:15)
[2023-05-01] MEDS: Sevelamer Carbonate Powder 800 MG POWD.PACK PO ×2 (16:26→20:15)
[2023-05-01 16:32] LABS: Glucose, Whole Blood 270 mg/dL (60-115)
[2023-05-01] MEDS: Insulin Lispro 100 UNIT/ML 3 ML VIAL SUBCUT (16:44)
[2023-05-01 16:50] LABS: VBG Base Excess -5.7 mmol/L; VBG HCO3 22 mmol/L (22-26); VBG pCO2 59 mmHg; VBG pH 7.19 (7.32-7.43); VBG pO2 63 mmHg
[2023-05-01 16:51] LABS: Venous Blood Gas Refer to POC result
[2023-05-01 19:52] LABS: Glucose, Whole Blood 62 mg/dL (60-115)
[2023-05-01] MEDS: Dextrose 50 % 25 GM/50 ML SYRINGE IVPUSH (19:54)
[2023-05-01] MEDS: Atorvastatin Calcium 20 MG TABLET PO (20:15)
[2023-05-01 20:27] LABS: Glucose, Whole Blood 149 mg/dL (60-115)
--- NOTE | 2023-05-02 00:51 | PC.NURSE ---
Assumed care of pt 19:00 (05/01). Pt confused, lethargic. Arousable to touch and light pain though quickly falling back asleep after woken and resisting care, initially refused vitals. Vitals and POC obtained with assistance. POC obtained showing 62. MD notified, prn dextrose given with +effect 149 on recheck. Pt more alert after d50, speech clear and pt stating you tricked me over and over. Not responding to assessment questions/unable to assess orientation. Covering Dr. Rodriguez aware. See biophysical assessment and EMAR for full details. Bed alarm on and in-room camera in place for safety. Handoff report given 23:15.
[2023-05-02 03:38] VITALS: BP 120/72; PULSE 80; RESP 18; TEMP 36.1; O2SAT 97
[2023-05-02] MEDS: Omeprazole 20 MG CAPSULE.DR PO (05:02)
--- NOTE | 2023-05-02 06:10 | PC.NURSE ---
CARE ASSUMED 23;15...RESTFUL OVERNIGHT...AWAKE TO VERBAL STIMULI..CONVERSES.....VAGUE RESPONSES TO QUESTIONS AT TIMES...O2 1 L/M VIA CANNULA....SAO2 93-94% WITH EPISODIC TRANSIENT DESATURATIONS WHILE ASLEEP...RECOVERS SPONTANEOUSLY..ASYMPTOMATIC WHEN AWAKENED....ATRIAL FIB WITH CONTROLLED HR...NEW DIALYSIS CATHETER TO RIGHT CHEST INTACT....TO DIALYSIS ROOM THIS AM FOR SCHEDULED DIALYSIS
--- NOTE | 2023-05-02 10:22 | P.PNNP_ITS ---
Subjective Subjective Date of Service: 05/02/23 Interval history: Had HD this AM. Tolerated HD well; D/W HD RN/ Med Attending Physical Exam 2 Vital Signs: Vital Signs: Last Vital Signs Temp 97 F 05/02/23 03:38 Pulse 80 05/02/23 03:38 Resp 18 05/02/23 03:38 BP 120/72 05/02/23 03:38 Pulse Ox 97 05/02/23 03:38 O2 Del Method Nasal Cannula 05/02/23 03:38 O2 Flow Rate 1 05/02/23 03:38 FiO2 30 04/26/23 07:00 BMI result Body Mass Index 28.3 Const: General: no acute distress Orientation/consciousness: patient oriented x3 Eyes: EOM: EOMs intact bilaterally Resp: Auscultation: diminished lung sounds Cardio: Rate: regular rate GI: Palpation (GI): Soft to palpation Neuro: General: patient oriented x3 and moves all extremities Objective Data Labs 05/01/23 09:21 04/30/23 06:34 Labs: Laboratory Results - last 24 hr 05/01/23 05/01/23 05/01/23 16:23 16:40 19:39 VBG pH 7.19 L* VBG pCO2 59 VBG pO2 63 VBG HCO3 22 VBG O2 Saturation Not Reportable VBG Base Excess -5.7 POC Glucose 270 H 62 Blood Type Antibody Screen Crossmatch 05/01/23 05/02/23 20:14 07:06 VBG pH VBG pCO2 VBG pO2 VBG HCO3 VBG O2 Saturation VBG Base Excess POC Glucose 149 H Blood Type A Positive Antibody Screen NEGATIVE Crossmatch See Detail Microbiology Microbiology Results: Microbiology 04/25/23 12:29 Blood - Venous Blood Culture - Final No growth after 5 days. 04/28/23 12:15 Blood - Venous Blood Culture - Preliminary No growth after 48 hours. 04/28/23 12:06 Blood - Venous Blood Culture - Preliminary No growth after 48 hours. 04/24/23 00:32 Blood - Venous Blood Culture - Final No growth after 5 days. 04/25/23 12:29 Blood - Venous Blood Culture - Final Staphylococcus aureus 04/23/23 11:57 Blood - Venous Blood Culture - Final Staphylococcus aureus 04/23/23 11:26 Blood - Venous Blood Culture - Final Staphylococcus aureus 04/23/23 16:31 Catheter Tip - Other Catheter Tip Culture - Final Methicillin Res Staph Aureus Procedures Date of Service Date of Service: 05/02/23 Assessment & Plan Assessment and plan (1) ESRD (end stage renal disease) on dialysis: Status: Acute Assessment and Plan: 77-year-old gentleman with underlying liver cirrhosis, diabetes, AFib, COPD, PVD, combined systolic and diastolic CHF, end-stage renal disease on hemodialysis Sunday/Sunday/Sunday, thrombocytopenia admitted on 04/23/2023 with MRSA bacteremia secondary to infected tunneled dialysis catheter. Internal catheter explanted. Patient was started on pressor support and broad-spectrum antibiotics and admitted to intensive care unit. Temporary dialysis catheter placed. - Had Permcath yesterday - iHD as per MWF schedule- Had HD this AM - Vanco post HD X 4 weeks - C/W rest of current management for now. Progress Note: Quality Stroke Does the patient have a stroke diagnosis?: No
--- NOTE | 2023-05-02 11:08 | P.DS_ITS ---
DS: Providers Provider Date of Service: 05/02/23 Date of admission: 04/23/23 14:10 Primary care physician: ALEXANDRE NOVAK Consults: 04/29/23 13:30 Consult to Infectious Diseases Routine Consulting Provider: [facility] [place] Infect[facility] Disease Reason for consultation: MRSA Bacteremia 2/2 permacath infx DS: Diagnosis Discharge Diagnosis (1) ESRD (end stage renal disease) on dialysis: Status: Acute DS: Summary Hospital Course Hospital Course: from initial hpi: 77-year-old gentleman with underlying liver cirrhosis, diabetes, AFib, COPD, PVD, combined systolic and diastolic CHF, end-stage renal disease on h emodialysis Sunday/Sunday/Sunday, thrombocytopenia admitted on 04/23/2023 for concerns of fever and hypotension. On ER evaluation patient with poor response to initial resuscitation with IV fluids and albumin requiring pressor support. Likely source is tunneled dialysis catheter. Order for explantation placed. Patient covered with broad-spectrum antibiotics and admitted to the intensive care unit. hospital course: Patient was admitted for septic shock due to MRSA bacteremia from infected PermCath. He was initially admitted to the intensive care unit given IV antibiotics, was weaned off pressors, PermCath removed and received dialysis through a temporary catheter will blood cultures cleared, PermCath now replaced and will complete antibiotics May 26. For end-stage renal disease he was continued on hemodialysis. For acute on chronic anemia due to inflammation and chronic kidney disease he was continued on p.o. iron and will receive transfusion is needed as outpatient. For diabetes use continue insulin. For chronic atrial fibrillation he will be restarted on Eliquis. Time Spent with Patient Time attestation: Total time managing care of this patient today ____ minutes. Discharge coordination time: Greater than 30 minutes Quality: Safe Use of Opioids Does Pt have an Active Cancer Diagnosis on the Problem List?: No Quality: Stroke Does the patient have a stroke diagnosis?: No Physical Exam Vital Signs: Vital Signs: Last Vital Signs Temp 97 F 05/02/23 03:38 Pulse 80 05/02/23 03:38 Resp 18 05/02/23 03:38 BP 120/72 05/02/23 03:38 Pulse Ox 97 05/02/23 03:38 O2 Del Method Nasal Cannula 05/02/23 03:38 O2 Flow Rate 1 05/02/23 03:38 FiO2 30 04/26/23 07:00 BMI result Body Mass Index 28.3 Const: General: no acute distress Orientation/consciousness: patient oriented x3 Eyes: EOM: EOMs intact bilaterally Resp: Auscultation: diminished lung sounds Cardio: Rate: regular rate GI: Palpation (GI): Soft to palpation Neuro: General: patient oriented x3 and moves all extremities DS: Data Data Completed and Pending Labs on day of discharge: Laboratory Results - last 24 hr 05/01/23 05/01/23 05/01/23 16:23 16:40 19:39 VBG pH 7.19 L* VBG pCO2 59 VBG pO2 63 VBG HCO3 22 VBG O2 Saturation Not Reportable VBG Base Excess -5.7 POC Glucose 270 H 62 Blood Type Antibody Screen Crossmatch 05/01/23 05/02/23 20:14 07:06 VBG pH VBG pCO2 VBG pO2 VBG HCO3 VBG O2 Saturation VBG Base Excess POC Glucose 149 H Blood Type A Positive Antibody Screen NEGATIVE Crossmatch See Detail Preliminary micro results at discharge 04/28/23 12:15 Blood Culture - Preliminary Blood - Venous No growth after 48 hours. 04/28/23 12:06 Blood Culture - Preliminary Blood - Venous No growth after 48 hours. Discharge Plan Discharge Anticipated Discharge Date/Time: 05/02/23 11:03 Patient Disposition: Xfer SNF Discharge Diagnosis: mrsa Referrals: [facility] [Outside] - 1 Week ALEXANDRE NOVAK [Primary Care Provider] - 1 Week Discharge Medications: New vancomycin in 0.9 % sodium chl 500 mg/100 mL piggyback 500 mg IV Q48H Rx Instructions: until may 26 midodrine 10 mg Tablet 10 mg PO TID Qty: 0 0RF Continued hydrocortisone 5 mg Tablet 5 mg PO DAILY acetaminophen 325 mg Tablet 650 mg PO Q8H PRN (Reason: Pain) atorvastatin 20 mg Tablet 20 mg PO BEDTIME thiamine HCl (vitamin B1) 100 mg Tablet 100 mg PO DAILY ascorbic acid (vitamin C) 250 mg Tablet 250 mg PO TID pantoprazole 40 mg Tablet,Delayed Release (Dr/Ec) 40 mg PO DAILY@0630 nitroglycerin 0.4 mg Tablet, Sublingual 0.4 mg SUBLINGUAL Q5M PRN (Reason: Angina) Rx Instructions: do not exceed 3 doses per episode albuterol sulfate 90 mcg/actuation Hfa Aerosol Inhaler 1 puff INHALATION Q6H PRN (Reason: Wheezing) vitamin B complex Capsule 1 cap PO DAILY cholecalciferol (vitamin D3) 25 mcg (1,000 unit) Tablet 25 mcg PO DAILY ferrous sulfate 324 mg (65 mg iron) Tablet,Delayed Release (Dr/Ec) 324 mg PO DAILY sevelamer carbonate [Renvela] 800 mg Tablet 800 mg PO TID Rx Instructions: must administer with a meal/food Alvesco 80 mcg/actuation Hfa Aerosol Inhaler 2 puff INHALATION BID Eliquis 2.5 mg Tablet 2.5 mg PO BID Discontinued midodrine 5 mg Tablet 5 mg PO TID Rx Instructions: do not give last dose of day after 6PM or within 4 hrs of bedtime HOLD FOR SBP > 130 Discharge Orders: Discharge Order (Routine); Ordered 05/02/23 Ordered By: Carl Cobos Diet: Advance to usual diet Activity on Discharge: As tolerated Stand Alone Forms: Patient Portal Discharge page Care Plan Goals: recovery Health Concerns: mrsa Plan of Treatment: vanc with hd until may 26 Assessment: see above
--- NOTE | 2023-05-02 11:32 | MHC.CM.PN ---
Pt is medically cleared for D/C to [facility] at [facility]. Transport via BLS/[facility] at 2pm.
[2023-05-02 11:34] VITALS: BP 126/62; PULSE 70; RESP 18; TEMP 36.5; O2SAT 95
[2023-05-02 12:55] LABS: Glucose, Whole Blood 112 mg/dL (60-115)
[2023-05-02 13:23] LABS: Vancomycin Random 12.7 mcg/mL (15-20)
== END 2023-05-02 16:03 | disposition skilled nursing facility (03) | DRG 721 ==
LOC: HO.ED 12:34 → HO.EDOVER 14:14 → HO.ICU 14:20 → HO.IMC 04-28 11:01
PROVIDERS: Internal Medicine Nephrology; Nurse Practitioner Family; Physician Assistant; Radiology Vascular & Interventional Radiology; Student in an Organized Health Care Education/Training Program; Admitting Provider Internal Medicine Pulmonary Disease; Emergency Provider Emergency Medicine; PCP Emergency Medicine; Visit Provider Internal Medicine
PROC: 02H633Z Insertion of Infusion Device into Right Atrium, Percutaneous Approach (ICD-10-PCS; principal; 2023-04-24 09:00)
PROC: 0JH63XZ Insertion of Tunneled Vascular Access Device into Chest Subcutaneous Tissue and Fascia, Percutaneous Approach (ICD-10-PCS; principal; 2023-05-01 10:20)
DX: T80.211A Bloodstream infection due to central venous catheter, initial encounter (principal); R65.21 Severe sepsis with septic shock; G93.41 Metabolic encephalopathy; A41.9 Sepsis, unspecified organism; N18.6 End stage renal disease; D63.1 Anemia in chronic kidney disease; D69.6 Thrombocytopenia, unspecified; I48.20 Chronic atrial fibrillation, unspecified; E11.22 Type 2 diabetes mellitus with diabetic chronic kidney disease; Z99.2 Dependence on renal dialysis; K74.60 Unspecified cirrhosis of liver; E11.51 Type 2 diabetes mellitus with diabetic peripheral angiopathy without gangrene; E11.40 Type 2 diabetes mellitus with diabetic neuropathy, unspecified; F60.2 Antisocial personality disorder; I50.42 Chronic combined systolic (congestive) and diastolic (congestive) heart failure; B95.62 Methicillin resistant Staphylococcus aureus infection as the cause of diseases classified elsewhere; J44.9 Chronic obstructive pulmonary disease, unspecified; Z20.822 Contact with and (suspected) exposure to COVID-19; Z79.01 Long term (current) use of anticoagulants; Z79.899 Other long term (current) drug therapy
CPT/HCPCS: 36415; 36556; 36558; 36590; 71045; 74176; 76937; 80048; 80076; 80202; 81001; 82040; 82533; 82803; 82947; 83540; 83605; 83690; 83735; 83880; 84100; 84484; 85025; 85027; 85610; 86704; 86706; 86850; 86900; 86901; 86923; 87040; 87071; 87077; 87147; 87186; 87205; 87340; 87635; 90999; 93005; 93306; 94660; 99152; 99153; 99285; C1750; C1752; C1758; C1769; J0885; J1643; J2250; J2543; J3370; P9047

== ENCOUNTER 2023-04-23 14:10 | Outpatient (BNV) | payer MEDICAID, SELFPAY | END 2023-05-01 08:00 | PROVIDERS: Admitting Provider Internal Medicine Pulmonary Disease; Emergency Provider Emergency Medicine; PCP Emergency Medicine; Visit Provider Radiology Vascular & Interventional Radiology | DX: N18.9 Chronic kidney disease, unspecified (principal) | CPT/HCPCS: 36558; 76937 ==

== ENCOUNTER 2023-04-23 14:10 | Outpatient (BNV) | payer MEDICAID, SELFPAY | END 2023-04-23 16:16 | PROVIDERS: Admitting Provider Internal Medicine Pulmonary Disease; Emergency Provider Emergency Medicine; PCP Emergency Medicine; Visit Provider Radiology Diagnostic Radiology | DX: T82.49XA Other complication of vascular dialysis catheter, initial encounter (principal); N18.9 Chronic kidney disease, unspecified | CPT/HCPCS: 36556; 36590 ==

== ENCOUNTER 2023-04-23 14:10 | Outpatient (BNV) | payer MEDICAID, SELFPAY | END 2023-04-25 07:00 | PROVIDERS: Admitting Provider Internal Medicine Pulmonary Disease; Emergency Provider Emergency Medicine; PCP Emergency Medicine; Visit Provider Internal Medicine Cardiovascular Disease | DX: I36.1 Nonrheumatic tricuspid (valve) insufficiency (principal); I48.0 Paroxysmal atrial fibrillation | CPT/HCPCS: 93306 ==

== ENCOUNTER → 2023-04-23 14:10 | Outpatient (BNV) | payer MEDICAID, SELFPAY | PROVIDERS: Admitting Provider Internal Medicine Pulmonary Disease; Emergency Provider Emergency Medicine; PCP Emergency Medicine; Visit Provider Student in an Organized Health Care Education/Training Program | DX: N18.6 End stage renal disease (principal); Z99.2 Dependence on renal dialysis | CPT/HCPCS: 99233; 99239 ==

== ENCOUNTER → 2023-04-23 14:10 | Outpatient (BNV) | payer MEDICAID, SELFPAY | PROVIDERS: Admitting Provider Internal Medicine Pulmonary Disease; Emergency Provider Emergency Medicine; PCP Emergency Medicine; Visit Provider Internal Medicine | DX: R78.81 Bacteremia (principal); B95.62 Methicillin resistant Staphylococcus aureus infection as the cause of diseases classified elsewhere; T85.71XA Infection and inflammatory reaction due to peritoneal dialysis catheter, initial encounter | CPT/HCPCS: 99222 ==

== ENCOUNTER → 2023-04-23 14:10 | Outpatient (BNV) | payer MEDICAID, SELFPAY | PROVIDERS: Admitting Provider Internal Medicine Pulmonary Disease; Emergency Provider Emergency Medicine; PCP Emergency Medicine; Visit Provider Internal Medicine Pulmonary Disease | DX: R78.81 Bacteremia (principal); B95.62 Methicillin resistant Staphylococcus aureus infection as the cause of diseases classified elsewhere; J44.9 Chronic obstructive pulmonary disease, unspecified; I48.20 Chronic atrial fibrillation, unspecified; E11.40 Type 2 diabetes mellitus with diabetic neuropathy, unspecified; F60.2 Antisocial personality disorder; I50.42 Chronic combined systolic (congestive) and diastolic (congestive) heart failure; T85.71XA Infection and inflammatory reaction due to peritoneal dialysis catheter, initial encounter; N18.6 End stage renal disease; Z99.2 Dependence on renal dialysis | CPT/HCPCS: 99232; 99291 ==

== ENCOUNTER → 2023-04-23 14:10 | Outpatient (BNV) | payer MEDICAID, SELFPAY | PROVIDERS: Admitting Provider Internal Medicine Pulmonary Disease; Emergency Provider Emergency Medicine; PCP Emergency Medicine; Visit Provider Internal Medicine Cardiovascular Disease | DX: A41.9 Sepsis, unspecified organism (principal); R77.8 Other specified abnormalities of plasma proteins | CPT/HCPCS: 99222 ==

== ENCOUNTER 2023-08-09 14:44 | Outpatient (AMB) | payer MEDICAID, SELFPAY ==
[2023-08-09 15:07] VITALS: BP 130/60; PULSE 107
--- NOTE | 2023-08-09 15:07 | MHC.OFFVIS ---
Intake Vital Signs 08/09/23 15:07 Height 5 ft 11 in BP 130/60 Blood Pressure Location Rt brachial Position Sitting Pulse 107 H Intake Visit Reasons: E LEARNING COORDINATOR/[facility]/CHF Intake Note: E LEARNING COORDINATOR/[facility]/CHF pt its feeling fine Garland Maker Required: No Accompanied by: Self / Same As Patient Allergies No Known Allergies Allergy (Verified 04/23/23 11:10) Medication List - Last Reconciled 08/09/23 by MAGO Sood acetaminophen 650 mg PO Q8H PRN albuterol sulfate 90 mcg/actuation 1 puff inhalation Q6H PRN apixaban (Eliquis) 2.5 mg PO BID ascorbic acid (vitamin C) 250 mg PO TID atorvastatin 20 mg PO BEDTIME cholecalciferol (vitamin D3) 25 mcg PO DAILY ciclesonide 80 mcg/actuation (Alvesco) 2 puffs inhalation BID ferrous sulfate 324 mg PO DAILY nitroglycerin 0.4 mg sublingual Q5M PRN thiamine HCl (vitamin B1) 100 mg PO DAILY vancomycin in 0.9 % sodium chl 500 mg/100 mL 500 mg (100 mL) IV Q48H vitamin B complex 1 cap PO DAILY HPI E LEARNING COORDINATOR/[facility]/CHF HPI Details Eric is a 78-year-old male with past medical history of end-stage renal disease, on dialysis, hypotension, diabetes, chronic atrial fibrillation who was admitted to [facility] in April 2023 with fever, tachycardia and hypotension. He was admitted to the ICU with septic shock and managed by the hook up with pressors and fluid. He had bacteremia which was felt to be from a skin source. He was seen by Cardiology for elevated troponins and BNP. Was thought to have type 2 NSTEMI in the setting of sepsis. He had evidence of fluid overload and underwent dialysis treatments. He was followed by Nephrology throughout his stay. Today he presents for post hospital follow-up. He is sitting in a wheelchair and tells me that he does not walk. He has been attending his dialysis treatments 3 times weekly. He resides in a long-term care facility. He does have a cough at this visit and tells me he does feel some chest congestion. His breathing is on labored. He says he sleeps with 2 close which is his normal. No chest discomfort at rest or during activity. No lightheadedness, presyncope, syncope, falls. He does have tight bilateral lower leg edema. He is not sure of what medications he takes. He does know that his blood pressure runs low at dialysis. [facility] Medical History Chronic combined systolic (congestive) and diastolic (congestive) heart failure Dysphagia, oral phase Unspecified intellectual disabilities Impulse disorder, unspecified Restlessness and agitation Personal history of pulmonary embolism Diabetes mellitus due to underlying condition without complications Tachycardia, unspecified Postcholecystectomy syndrome Acute cholecystitis with chronic cholecystitis Need for assistance with personal care Muscle weakness (generalized) Edema, unspecified Shortness of breath Personal history of nicotine dependence Unspecified amblyopia, right eye Personal history of diseases of the skin and subcutaneous tissue Hypoxemia Other terminal supervisor (current) drug therapy Personal history of other diseases of the musculoskeletal system and connective tissue Gastro-esophageal 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 esophagitis [facility] (current) use of anticoagulants Chest pain, unspecified Unspecified osteoarthritis, unspecified site Obesity, unspecified Constipation, unspecified Exhibitionism Personal history of COVID-19 Other specified hearing loss, bilateral Unspecified asthma, uncomplicated Other ascites Type 2 diabetes mellitus with diabetic chronic kidney disease Thrombocytopenia, unspecified Hypomagnesemia Non-ST elevation (NSTEMI) myocardial infarction Vitamin D deficiency, unspecified Fluid overload, unspecified Atherosclerotic heart disease of [place] coronary artery without angina pectoris Unspecified severe protein-calorie malnutrition Acute respiratory failure with hypoxia Encounter for adjustment and management of vascular access device Dependence on renal dialysis Other disorders of phosphorus metabolism Hypo-osmolality and hyponatremia Nutritional deficiency, unspecified Orthostatic hypotension Thiamine deficiency, unspecified Venous insufficiency (chronic) (peripheral) Heart failure, unspecified Antisocial personality disorder Chronic obstructive pulmonary disease, unspecified Unspecified cirrhosis of liver Hyperlipidemia, unspecified Iron deficiency anemia, unspecified Chronic atrial fibrillation, unspecified Type 2 diabetes mellitus with diabetic neuropathy, unspecified End stage renal disease Surgical History Cataract extraction status of right eye Cataract extraction status, left eye Social History Housing: Correction Alcohol intake: never Patient Tobacco Use Status: Former Tobacco user Tobacco use type: Pipe service: No Review of Systems Const No All systems reviewed & are unremarkable except as noted in HPI and below Denies chills, Denies fatigue, Denies fever(s), Denies frequent falls, Reports weakness, Denies weight gain and Denies weight loss ENT Denies dizziness Card Details: pressure in chest at times when laying down Reports chest pain, Reports leg edema, Denies lightheadedness, Denies palpitations, Denies dyspnea, Reports dyspnea on exertion and Denies orthopnea Resp Reports cough, Denies dyspnea and Reports dyspnea on exertion GI Denies bloating and Denies change in bowel habits Musc Details: uses wheelchair - states unable to walk Reports muscle weakness, Denies numbness and Denies tingling Neuro Denies dizziness, Denies frequent falls, Denies numbness, Denies tingling and Reports weakness Endo Denies fatigue and Denies palpitations Physical Exam Vital Signs: Last Vital Signs Pulse 107 H 08/09/23 15:07 BP 130/60 08/09/23 15:07 Const Other: sitting in wheelchair General: cooperative, comfortable and no acute distress Orientation/consciousness: patient oriented x3 Neck Neck: Yes normal visual inspection Resp Other: rales in bases with bilateral expiratory wheezing. congested sounding cough Effort & Inspection: normal respiratory effort Auscultation: no rhonchi Cardio Jugular venous distension: no JVD Rate: tachycardic Rhythm: abnormal rhythm Heart sounds: S1 normal heart sound present, S2 normal heart sound present, no murmurs and no rubs Skin General skin exam: no rashes or lesions noted Neuro General: patient oriented x3 Extrem Other: bilateral tight lower leg edema Psych Appearance: grossly normal Mental Status: mental status grossly normal Speech and movement: Normal speech and movement present Office Procedures EKG Details: Today read by me, atrial fibrillation, 1 PVC, can not exclude inferior infarct, rate 107, QTC 477 millisecond [id number], Complete Assessment & Plan Assessment & Plan (1) Chronic combined systolic (congestive) and diastolic (congestive) heart failure: Code(s): I50.42 - Chronic combined systolic (congestive) and diastolic (congestive) heart failure Plan: [place] [facility] [place] for [place], septic shock, bacteremia from skin source. During that admission he did have elevated BNP 1344. He did undergo dialysis treatments and continues to have dialysis treatments 3 times weekly since discharge. He does follow with Nephrology but is unable to tell me who his inspector floor sub assembly is. Echocardiogram was done on 04/23/2023 showing EF 55-60%, can not rule out anterior lateral hypokinesis in some views, RV mild to moderately dilated with [id number] systolic dysfunction, left atrium moderately dilated, significantly elevated right atrial pressure, severe pulmonary hypertension . He is not on any diuretics. Last labs on 07/24 showed creatinine 4.6, GFR 12. On examination today he does have evidence of fluid overloaded including rales in each lower lobe, expiratory wheezes and tight edema in his legs. He is due for dialysis tomorrow. Will try to reach out to his dialysis center to report condition that I am observing today. It seems that he would benefit from removal of further fluid from dialysis treatments. This may be limited by hypotension. He is currently on midodrine. Blood pressure is normal range today at 130/60. Reviewed diagnosis of Congestive heart failure with patient, benefits of low-salt diet, leg elevation when sitting. Since he follows closely with Nephrology will continue on same medications at present. Plan to discuss case with his primary hair baler and make addendum to this note if needed. (2) Chronic atrial fibrillation, unspecified: Code(s): I48.20 - Chronic atrial fibrillation, unspecified Plan: History of chronic atrial fibrillation. EKG done today showing atrial fibrillation with heart rate 107. Patient denies any heart palpitations. He is not on any rate slowing medications. This is likely due to his history of hypotension. Blood pressure is acceptable at this time however he tells me that blood pressure is low at dialysis. He continues on midodrine 3 times daily. Will check Holter monitor to evaluate AFib rates. He is on Eliquis at renal dose for anticoagulation. No bleeding issues reported. No med changes made. Labs done on 07/24/2023 showed hematocrit 40.1 (3) ESRD (end stage renal disease) on dialysis: Code(s): N18.6 - End stage renal disease; Z99.2 - Dependence on renal dialysis Plan: As above (4) Anticoagulated: Code(s): Z79.01 - terminal supervisor (current) use of anticoagulants Plan: As above (5) Pulmonary hypertension: Code(s): I27.20 - Pulmonary hypertension, unspecified Plan: As above (6) Hospital discharge follow-up: Code(s): Z09 - Encounter for follow-up examination after completed treatment for conditions other than malignant neoplasm Plan: [facility] [place] Plan Time spent on chart review, documentation, interview assess Orders: Orders ECG 3 day holter monitor 08/09/23 I48.20 - Chronic atrial fibrillation, unspecified Coding Level of Care Code Est Pt Level 4 (21759) Diagnoses Chronic combined systolic (congestive) and diastolic (congestive) heart failure I50.42 Chronic atrial fibrillation, unspecified I48.20 ESRD (end stage renal disease) on dialysis N18.6; Z99.2 Anticoagulated Z79.01 Pulmonary hypertension I27.20 Hospital discharge follow-up Z09 CPT Codes EKG - CPT: 42385-[id number], Complete ([id number]) Time Spent (min) 30
== END 2023-08-09 15:57 | disposition home or self-care (01) ==
PROVIDERS: PCP Emergency Medicine; Visit Provider Nurse Practitioner Family
DX: I48.20 Chronic atrial fibrillation, unspecified (principal)
CPT/HCPCS: 93010; 99214

== ENCOUNTER → 2023-08-09 14:44 | Outpatient (BNVA) | payer MEDICAID, SELFPAY | PROVIDERS: PCP Emergency Medicine; Visit Provider Nurse Practitioner Family | DX: Z09 Encounter for follow-up examination after completed treatment for conditions other than malignant neoplasm (principal); I50.42 Chronic combined systolic (congestive) and diastolic (congestive) heart failure; I48.20 Chronic atrial fibrillation, unspecified; I27.20 Pulmonary hypertension, unspecified; N18.6 End stage renal disease; Z99.2 Dependence on renal dialysis; Z79.01 Long term (current) use of anticoagulants | CPT/HCPCS: 93005; 99212 ==

== ENCOUNTER → 2023-08-28 11:23 | Outpatient (REF) | payer MEDICAID, SELFPAY ==
--- NOTE | 2023-08-28 11:31 | HM_ITS ---
* Total monitoring time 2 days. * Underlying rhythm is atrial fibrillation with an average rate of 71/Min. Range 40 to 150/Min. * Occasional ventricular ectopy with a burden of 1.6%. Rare couplets, bigeminy and trigeminy. * No significant pauses or AV blocks. * Tiredness/fatigue in diary correlates with atrial fibrillation with controlled rate. MTDD
== END ==
LOC: HO.CARD 11:23
PROVIDERS: PCP Emergency Medicine; Visit Provider Nurse Practitioner Family
DX: I48.20 Chronic atrial fibrillation, unspecified (principal)
CPT/HCPCS: 93242

== ENCOUNTER → 2023-08-28 11:31 | Outpatient (BNV) | payer MEDICAID, SELFPAY | PROVIDERS: PCP Emergency Medicine; Visit Provider Internal Medicine | DX: I48.20 Chronic atrial fibrillation, unspecified (principal) | CPT/HCPCS: 93244 ==

== ENCOUNTER 2023-11-22 14:06 | Outpatient (AMB) | payer MEDICAID, SELFPAY ==
[2023-11-22 14:27] VITALS: BP 116/68; PULSE 61; O2SAT 98; BMI 24.3
--- NOTE | 2023-11-22 14:27 | A.OFFVIS_ITS ---
Vital Signs 11/22/23 14:27 Height 5 ft 11 in Weight 174 lb BMI 24.3 BMI Reason not done Patient refused/unable BP 116/68 Blood Pressure Location Lt brachial Position Sitting Pulse 61 Pulse Source Pulse Oximeter Pulse Oximetry (%) 98 Oxygen Delivery Method Room Air Intake Visit Reasons: 3 mth fu (KM) Intake Note: 3 month follow up pt is feeling good Allergies No Known Allergies Allergy (Verified 04/23/23 11:10) HPI Comments Details: 78-year-old male presents today for a follow-up. He presents from a halfway facility with a ROOFING SUBCONTRACTOR. He reports he has been doing well. He denies any shortness of breath, chest pains, swelling, orthopnea, dizziness, palpitations, or bleeding. He reports he takes his medications every day. He states he occasionally will get a low blood pressure at dialysis. His paperwork today does not have any blood pressure, heart rate, or weight readings. [facility] Medical History Chronic combined systolic (congestive) and diastolic (congestive) heart failure Dysphagia, oral phase Unspecified intellectual disabilities Impulse disorder, unspecified Restlessness and agitation Personal history of pulmonary embolism Diabetes mellitus due to underlying condition without complications Tachycardia, unspecified Postcholecystectomy syndrome Acute cholecystitis with chronic cholecystitis Need for assistance with personal care Muscle weakness (generalized) Edema, unspecified Shortness of breath Personal history of nicotine dependence Unspecified amblyopia, right eye Personal history of diseases of the skin and subcutaneous tissue Hypoxemia Other half-way (current) drug therapy Personal history of other diseases of the musculoskeletal system and connective tissue Gastro-esophageal 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 esophagitis [facility] (current) use of anticoagulants Chest pain, unspecified Unspecified osteoarthritis, unspecified site Obesity, unspecified Constipation, unspecified Exhibitionism Personal history of COVID-19 Other specified hearing loss, bilateral Unspecified asthma, uncomplicated Other ascites Type 2 diabetes mellitus with diabetic chronic kidney disease Thrombocytopenia, unspecified Hypomagnesemia Non-ST elevation (NSTEMI) myocardial infarction Vitamin D deficiency, unspecified Fluid overload, unspecified Atherosclerotic heart disease of [place] coronary artery without angina pectoris Unspecified severe protein-calorie malnutrition Acute respiratory failure with hypoxia Encounter for adjustment and management of vascular access device Dependence on renal dialysis Other disorders of phosphorus metabolism Hypo-osmolality and hyponatremia Nutritional deficiency, unspecified Orthostatic hypotension Thiamine deficiency, unspecified Venous insufficiency (chronic) (peripheral) Heart failure, unspecified Antisocial personality disorder Chronic obstructive pulmonary disease, unspecified Unspecified cirrhosis of liver Hyperlipidemia, unspecified Iron deficiency anemia, unspecified Chronic atrial fibrillation, unspecified Type 2 diabetes mellitus with diabetic neuropathy, unspecified End stage renal disease Surgical History Cataract extraction status of right eye Cataract extraction status, left eye Social History Housing: [facility] Alcohol intake: never Patient Tobacco Use Status: Former Tobacco user Tobacco use type: Pipe service: No Review of Systems Const Denies weakness ENT Denies dizziness Card Denies chest pain, Denies chest pain with activity, Denies syncope, Denies rapid heart rate, Denies pedal edema, Denies edema, Denies leg edema, Denies lightheadedness, Denies palpitations, Denies dyspnea, Denies dyspnea on exertion and Denies orthopnea Resp Denies cough, Denies dyspnea and Denies dyspnea on exertion GI Denies hematochezia and Denies change in stool character Musc Denies abnormal gait, Denies muscle cramps, Denies muscle weakness, Denies numbness, Denies radiating pain into limb and Denies tingling Neuro Denies abnormal gait, Denies dizziness, Denies syncope, Denies numbness, Denies tingling and Denies weakness Endo Denies palpitations Physical Exam Vital Signs: Last Vital Signs Pulse 61 11/22/23 14:27 BP 116/68 11/22/23 14:27 Pulse Ox 98 11/22/23 14:27 Oxygen Delivery Method Room Air 11/22/23 14:27 BMI result Body Mass Index 24.3 Const General: healthy appearing and no acute distress Orientation/consciousness: patient oriented x3 Limitations: wheelchair HEENT Head: Yes normal to inspection Eyes General: appearance normal, both eyes and all related structures Neck Neck: Yes normal visual inspection Chest Chest palpation & inspection: normal inspection of the chest Resp Effort & Inspection: normal respiratory effort Auscultation: clear to auscultation bilaterally Cardio Jugular venous distension: no JVD Palpation: normal PMI Rate: regular rate Rhythm: regular rhythm Heart sounds: S1 normal heart sound present, S2 normal heart sound present, no click, no gallops, no murmurs and no rubs GI Inspection: Yes normal to inspection Palpation (GI): Soft to palpation Skin General skin exam: no rashes or lesions noted Neuro General: patient oriented x3 Extrem General: Yes normal to inspection Psych Appearance: grossly normal Assessment & Plan Assessment & Plan (1) Chronic combined systolic (congestive) and diastolic (congestive) heart failure: Code(s): I50.42 - Chronic combined systolic (congestive) and diastolic (congestive) heart failure Category: Medical (2) Chronic atrial fibrillation, unspecified: Code(s): I48.20 - Chronic atrial fibrillation, unspecified Category: Medical (3) ESRD (end stage renal disease) on dialysis: Code(s): N18.6 - End stage renal disease; Z99.2 - Dependence on renal dialysis Category: Medical Plan On dialysis three times a week. Reports low blood pressures are happening less frequently. He is not fluid overloaded and is on a low salt diet at the [facility]. Currently not in fluid overload. Hypotensive episodes happening less often during dialysis. Holter showed atriaql fibrillation episodes average rate of 71 bpm. Echo in 04/2023 showed EF of 55-60%.
== END 2023-11-22 15:10 | disposition home or self-care (01) ==
PROVIDERS: PCP Emergency Medicine; Visit Provider Nurse Practitioner
DX: I50.42 Chronic combined systolic (congestive) and diastolic (congestive) heart failure (principal); I48.20 Chronic atrial fibrillation, unspecified; N18.6 End stage renal disease; Z99.2 Dependence on renal dialysis
CPT/HCPCS: 99213

== ENCOUNTER → 2023-11-22 14:06 | Outpatient (BNVA) | payer MEDICAID, SELFPAY | PROVIDERS: PCP Emergency Medicine; Visit Provider Nurse Practitioner | DX: I13.2 Hypertensive heart and chronic kidney disease with heart failure and with stage 5 chronic kidney disease, or end stage renal disease (principal); I50.42 Chronic combined systolic (congestive) and diastolic (congestive) heart failure; I48.20 Chronic atrial fibrillation, unspecified; N18.6 End stage renal disease; Z99.2 Dependence on renal dialysis | CPT/HCPCS: 99212 ==

== ENCOUNTER 2024-07-31 13:40 | Outpatient (AMB) | payer MEDICAID, SELFPAY ==
[2024-07-31 13:56] VITALS: BP 114/62; PULSE 80; BMI 26.0
--- NOTE | 2024-07-31 13:56 | A.OFFVIS_ITS ---
Vital Signs 07/31/24 13:56 Height 5 ft 11 in Weight 186 lb 5 oz BMI 26.0 BP 114/62 Blood Pressure Location Lt brachial Position Sitting Pulse 80 Pulse Source Monitor Intake Visit Reasons: 6 mth f/up Neon Electrician Required: No Scale Balancer: Scale Balancer Present Allergies No Known Allergies Allergy (Verified 07/31/24 14:00) Medication List - Last Reconciled 07/31/24 by Mary Houston, [employer]AIL [employer] TECHNICIAN-C acetaminophen 650 mg PO Q8H PRN albuterol sulfate 90 mcg/actuation 1 puff inhalation Q6H PRN apixaban (Eliquis) 2.5 mg PO BID ascorbic acid (vitamin C) 250 mg PO TID atorvastatin 20 mg PO BEDTIME cholecalciferol (vitamin D3) 25 mcg PO DAILY ciclesonide 80 mcg/actuation (Alvesco) 2 puffs inhalation BID ferrous sulfate 324 mg PO DAILY nitroglycerin 0.4 mg sublingual Q5M PRN oxycodone 5 mg PO Q6H PRN thiamine HCl (vitamin B1) 100 mg PO DAILY vancomycin in 0.9 % sodium chl 500 mg/100 mL 500 mg (100 mL) IV Q48H vitamin B complex 1 cap PO DAILY HPI HPI 6 mth f/up: Details: Eric is a 78-year-old male with past medical history of end-stage renal disease, on dialysis, hypotension, diabetes, chronic atrial fibrillation, chronic heart failure who presents for follow-up. His last visit to our office was 08/09/2023. Today he reports he has done well over the last year. He continues with dialysis 3 times weekly. He denies any chest discomfort at rest or with activity. He is mostly sedentary and uses a wheelchair. No concerning shortness of breath, PND, orthopnea. He does have some pitting edema in his legs above the level of his socks. No palpitations, presyncope, syncope. He says at times following dialysis he will have some lightheadedness. Takes his meds as directed. No bleeding issues reported. A worker from his skilled nurs ing facility is present. PENDING SALE TO [facility] Medical History Chronic combined systolic (congestive) and diastolic (congestive) heart failure Dysphagia, oral phase Unspecified intellectual disabilities Impulse disorder, unspecified Restlessness and agitation Personal history of pulmonary embolism Diabetes mellitus due to underlying condition without complications Tachycardia, unspecified Postcholecystectomy syndrome Acute cholecystitis with chronic cholecystitis Need for assistance with personal care Muscle weakness (generalized) Edema, unspecified Shortness of breath Personal history of nicotine dependence Unspecified amblyopia, right eye Personal history of diseases of the skin and subcutaneous tissue Hypoxemia Other halfway (current) drug therapy Personal history of other diseases of the musculoskeletal system and connective tissue Gastro-esophageal 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 esophagitis termite treater helper (current) use of anticoagulants Chest pain, unspecified Unspecified osteoarthritis, unspecified site Obesity, unspecified Constipation, unspecified Exhibitionism Personal history of COVID-19 Other specified hearing loss, bilateral Unspecified asthma, uncomplicated Other ascites Type 2 diabetes mellitus with diabetic chronic kidney disease Thrombocytopenia, unspecified Hypomagnesemia Non-ST elevation (NSTEMI) myocardial infarction Vitamin D deficiency, unspecified Fluid overload, unspecified Atherosclerotic heart disease of [place] coronary artery without angina pectoris Unspecified severe protein-calorie malnutrition Acute respiratory failure with hypoxia Encounter for adjustment and management of vascular access device Dependence on renal dialysis Other disorders of phosphorus metabolism Hypo-osmolality and hyponatremia Nutritional deficiency, unspecified Orthostatic hypotension Thiamine deficiency, unspecified Venous insufficiency (chronic) (peripheral) Heart failure, unspecified Antisocial personality disorder Chronic obstructive pulmonary disease, unspecified Unspecified cirrhosis of liver Hyperlipidemia, unspecified Iron deficiency anemia, unspecified Chronic atrial fibrillation, unspecified Type 2 diabetes mellitus with diabetic neuropathy, unspecified End stage renal disease Surgical History Cataract extraction status of right eye Cataract extraction status, left eye Social History Housing: Jail Alcohol intake: never Patient Tobacco Use Status: Former Tobacco user Tobacco use type: Pipe service: No Review of Systems Const All systems reviewed & are unremarkable except as noted in HPI and below ENT Denies dizziness Card Denies chest pain, Denies chest pain at rest, Denies chest pain with activity, Denies rapid heart rate, Denies pedal edema, Denies edema, Denies leg edema, Reports lightheadedness, Denies palpitations, Denies dyspnea, Denies dyspnea on exertion and Denies orthopnea Resp Denies cough, Denies dyspnea and Denies dyspnea on exertion GI Denies hematochezia and Denies change in stool character Musc Reports abnormal gait (uses wheelchair), Denies limited range of motion, Denies muscle cramps, Reports muscle weakness, Denies numbness, Denies radiating pain into limb, Denies stiffness and Denies tingling Neuro Reports abnormal gait (uses wheelchair), Denies dizziness, Denies numbness and Denies tingling Endo Denies palpitations Physical Exam Vital Signs: BMI result Body Mass Index 26.0 Const Other: sitting in wheelchair General: cooperative, healthy appearing, comfortable and no acute distress Orientation/consciousness: patient oriented x3 Neck Neck: Yes normal visual inspection Resp Other: rales in bases Effort & Inspection: normal respiratory effort Auscultation: clear to auscultation bilaterally, no crackles, no rales, no rhonchi and no wheezes Cardio Jugular venous distension: no JVD Rate: regular rate Rhythm: regular rhythm Heart sounds: S1 normal heart sound present, S2 normal heart sound present, no murmurs and no rubs Skin General skin exam: no rashes or lesions noted Neuro General: patient oriented x3 Extrem Other: bilateral edema noted above the level of his socks and posterior distal thigh General: No no pedal edema, No calf tenderness and Yes edema Psych Appearance: grossly normal Mental Status: mental status grossly normal Speech and movement: Normal speech and movement present Office Procedures EKG Details: Today, read by me, atrial fibrillation, minimal voltage criteria for LVH, cant exclude prior anterior infarct, ST/ T wave abn leads III, avf, V5-V6, rate 80, QTc 435ms [id number], Complete Assessment & Plan Assessment & Plan (1) Chronic atrial fibrillation, unspecified: Code(s): I48.20 - Chronic atrial fibrillation, unspecified Category: Medical Plan: History of chronic atrial fibrillation. Echocardiogram done 04/23/2023 showing EF 55-60%, can not rule out anterior lateral hypokinesis in some views, RV mild to moderately dilated with [id number] systolic dysfunction, left atrium moderately dilated, significantly elevated right atrial pressure, severe pulmonary hypertension. Holter monitor done 08/28/2023 for 2 days shows atrial fibrillation with average heart rate 71, occasional ventricular ectopy. EKG done today showing atrial fibrillation with heart rate 80. He is not on any rate slowing agents. He does run a low blood pressure and currently is on midodrine. Patient denies any heart palpitations. He is on Eliquis at renal dose for anticoagulation. No bleeding issues reported. No med changes made. Labs done on 11/09/23 showed hematocrit 42.9, Cr 3.0. Cardiology follow-up 6 months, sooner if needed (2) Chronic combined systolic (congestive) and diastolic (congestive) heart failure: Code(s): I50.42 - Chronic combined systolic (congestive) and diastolic (congestive) heart failure Category: Medical Plan: History of chronic heart failure. Last echo showed normal EF. He is on dialysis 3 times weekly and his condition has been stable. He has not had any heart failure admissions this past year that I am aware of. He is not on diuretics. He does have some pitting edema which is less than what I had described last year. He also has some rales in his bases which he did have last year and could be related to atelectasis. He is scheduled for dialysis tomorrow. He denies any issues with shortness of breath. (3) ESRD (end stage renal disease) on dialysis: Code(s): N18.6 - End stage renal disease; Z99.2 - Dependence on renal dialysis Category: Medical Plan: As above (4) Anticoagulated: Code(s): Z79.01 - termite treater helper (current) use of anticoagulants Category: Medical Plan: As above (5) Pulmonary hypertension: Code(s): I27.20 - Pulmonary hypertension, unspecified Category: Medical Plan: As above Plan Time spent on chart review, documentation, interview assessment Orders: Orders AMB EKG-In Office Today I48.20 - Chronic atrial fibrillation, unspecified Coding Level of Care Code Est Pt Level 4 (31216) Complex EM visit Add On G2211 Diagnoses Chronic atrial fibrillation, unspecified I48.20 Chronic combined systolic (congestive) and diastolic (congestive) heart failure I50.42 ESRD (end stage renal disease) on dialysis N18.6; Z99.2 Anticoagulated Z79.01 Pulmonary hypertension I27.20 CPT Codes EKG - CPT: 73768-[id number], Complete ([id number]) Time Spent (min) 32
== END 2024-07-31 14:42 | disposition home or self-care (01) ==
PROVIDERS: PCP Emergency Medicine; Visit Provider Nurse Practitioner Family
DX: I48.20 Chronic atrial fibrillation, unspecified (principal); I50.42 Chronic combined systolic (congestive) and diastolic (congestive) heart failure; N18.6 End stage renal disease; Z99.2 Dependence on renal dialysis; Z79.01 Long term (current) use of anticoagulants; I27.20 Pulmonary hypertension, unspecified
CPT/HCPCS: 93010; 99214

== ENCOUNTER → 2024-07-31 13:40 | Outpatient (BNVA) | payer MEDICAID, SELFPAY | PROVIDERS: PCP Emergency Medicine; Visit Provider Nurse Practitioner Family | DX: I48.20 Chronic atrial fibrillation, unspecified (principal); I50.42 Chronic combined systolic (congestive) and diastolic (congestive) heart failure; I27.20 Pulmonary hypertension, unspecified; E11.22 Type 2 diabetes mellitus with diabetic chronic kidney disease; N18.6 End stage renal disease; Z99.2 Dependence on renal dialysis; Z79.01 Long term (current) use of anticoagulants | CPT/HCPCS: 93005; 99212 ==